=== PATIENT | female | born 1990 | race Caucasian/White ===

== ENCOUNTER 2021-02-26 12:24 | Outpatient (CLI) | payer OTHER, SELFPAY ==
--- NOTE | ~2021-02-26 | XR_ITS ---
XR knee RT 3V, XR knee LT 3V 02/26/2021 13:09 Indication: Osteoarthritis Procedure: 3 views of each knee Comparison: No prior studies for comparison. Findings: No fracture, subluxation or dislocation. No erosive changes. No significant joint space wendy rowing. No foreign bodies. No soft tissue abnormality. Impression: 1: No significant bone or joint abnormality. Reviewed, dictated and finalized at location B. Impression: 1: No significant bone or joint abnormality. Impression: 1: No significant bone or joint abnormality.
--- NOTE | ~2021-02-26 | XR_ITS ---
EXAMINATION: XR lumbar spine min 4V EXAM DATE: 02/26/2021 13:09 INDICATION: Osteoarthritis. Low back pain. TECHNIQUE: Lumber spine frontal, lateral, bilateral oblique projections. Coned down frontal and lat eral L5-S1 lumbar projections for interpretation. There is no prior study for comparison. FINDINGS: There is no spondylolysis. Evidence of mild lumbar facet arthropathy. Vertebral body and di sc heights are well-maintained. The vertebral bodies are aligned in the AP dimension. Sacrum, sacroil iac joints, sacral arcuate lines are intact. IMPRESSION: Mild lumbar facet arthropathy. Reviewed, dictated and finalized at location A.
--- NOTE | ~2021-02-26 | XR_ITS ---
EXAMINATION: HAND-OVIDIO ARTHRITIS 3+VIEWS DATE: 02/26/2021 13:09 INDICATION: Osteoarthritis TECHNIQUE: Posteroanterior, lateral, and oblique views of the left and of the right hands as well as a ballcatchers view of both hands were obtained. COMPARISON: None. FINDINGS: Normal alignment. No fracture. Joint spaces are normal with no osteophytosis or erosions. Soft tissue s are unremarkable. IMPRESSION: 1. Normal bilateral hand radiographs. Reviewed, dictated and finalized at location A.
--- NOTE | ~2021-02-26 | XR_ITS ---
XR foot RT standing 2V, XR foot LT standing 2V 02/26/2021 13:09 Indication: Osteoarthritis. Procedure: 2 views each foot Comparison: No prior studies for comparison. Findings: No fracture, subluxation or dislocation. No erosive changes. There is anatomic alignment. L isfranc joint intact. No erosive changes. Impression: 1: No significant bone or joint abnormality. Reviewed, dictated and finalized at location B. Impression: 1: No significant bone or joint abnormality. Impression: 1: No significant bone or joint abnormality.
--- NOTE | ~2021-02-26 | XR_ITS ---
XR hip BI 2V w AP pelvis 02/26/2021 13:09 Indication: Osteoarthritis Procedure: AP view of the pelvis and 2 views each hip Comparison: No prior studies for comparison. Findings: Pelvic rings are intact. Sacral foramen are symmetric. No fracture, subluxation or dislocat ion. No significant joint space narrowing. No erosive changes. Impression: 1: No significant bone or joint abnormality. Reviewed, dictated and finalized at location B. Impression: 1: No significant bone or joint abnormality.
[2021-02-26 13:49] LABS: Hemoglobin 14.1 g/dL (12.0-15.0); Mean Corpuscular HGB Conc 33.6 g/dl (32-36); Mean Corpuscular Hemoglobin 31.8 pg (26-34); Mean Corpuscular Volume 94.6 fl (80-100); Mean Platelet Volume 9.7 fl (7.4-10.4); Platelet Count Result 240 k/mm3 (150-375); Red Blood Count 4.44 M/mm3 (4.2-5.4); Red Cell Distribution Width 12.2 % (11.5-14.5); White Blood Count 7.6 K/mm3 (4.5-10.0)
[2021-02-26 13:51] LABS: Add Urine Microscopic? NO; Appearance Urine Clear (Clear); Bilirubin Urine Negative (Negative); Blood Urine Negative (Negative); Color Urine Yellow (Yellow); Glucose Urine UA Negative (Negative); Ketones Urine Negative (Negative); Leukocyte Esterase Ur Negative LEU/UL (Negative); Nitrate Urine Negative (Negative); Protein Urine Negative (Negative); Specific Grav Ur 1.018 (1.001-1.035); Urobilinogen Urine Negative mg/dL (<2.0)
[2021-02-26 14:04] LABS: Alanine Aminotransferase 12 U/L (4-35); Alkaline Phosphatase 47 U/L (38-126); Anion Gap 2 mmol/L (8-16); Aspartate Amino Transferase 18 U/L (14-36); Bilirubin,Total 0.3 mg/dL (0.2-1.3); Blood Urea Nitrogen 12 mg/dL (7-17); CRP < 0.5 mg/dL (<1.0); Calcium 8.8 mg/dL (8.4-10.2); Carbon Dioxide 28 mmol/L (22-30); Chloride 108 mmol/L (98-107); Estimated Glomerular Filt Rate > 60; Glucose 84 mg/dL (65-105); Potassium 4.4 mmol/L (3.4-5.0); Sodium 138 mmol/L (137-145); Uric Acid 4.3 mg/dL (2.5-7.5)
[2021-02-26 14:22] LABS: Erythrocyte Sedimentation Rate 12 mm/hr (0-20)
[2021-02-26 14:44] LABS: Vitamin D 25 Hydroxy 29.9 ng/mL
[2021-03-01 06:33] LABS: Thyroid Peroxidase Antibodies 79 IU/mL (<9)
[2021-03-04 10:25] LABS: Anti Cyclic Citrullinated Pept <16 Units (<20)
[2021-03-06 22:09] LABS: ANCA Screen Negative (Negative); Myeloperoxidase Ab <1.0 AI (<1.0); Proteinase-3 Ab <1.0 AI (<1.0); S cerevisiae Ab (IgA) 5.2 U (<=20.0); S cerevisiae Ab (IgG) 7.5 U (<=20.0)
== END 2021-02-26 12:25 | disposition home or self-care (01) ==
PROVIDERS: Visit Provider Internal Medicine
DX: M19.90 Unspecified osteoarthritis, unspecified site (principal)
CPT/HCPCS: 36415; 72110; 73130; 73521; 73562; 73620; 80053; 81003; 82306; 84550; 85027; 85652; 86021; 86140; 86200; 86376; 86671

== ENCOUNTER 2021-03-05 15:37 | Outpatient (CLI) | payer OTHER, SELFPAY ==
--- NOTE | ~2021-03-05 | XR_ITS ---
EXAMINATION:XR_CERV2-3V_CR DATE: 03/05/2021 15:58 INDICATION: Neck pain TECHNIQUE: AP, lateral, and odontoid views of the cervical spine are provided. COMPARISON: None FINDINGS: Alignment is normal. There is straightening of the cervical spine which can be positional o r due to muscular spasm. The odontoid is intact. No fracture is identified. There is mild loss of int ervertebral disc space height at C5-6. Vertebral body heights and disk spaces are otherwise normal. P revertebral soft tissues are normal. IMPRESSION: 1. Mild degenerative change at C5-6 without acute abnormality. Reviewed, dictated and finalized at location A.
== END 2021-03-05 15:38 | disposition home or self-care (01) ==
PROVIDERS: Visit Provider Internal Medicine
DX: M50.322 Other cervical disc degeneration at C5-C6 level (principal)
CPT/HCPCS: 72040

== ENCOUNTER 2021-05-01 16:54 | Outpatient (CLI) | payer OTHER, SELFPAY ==
--- NOTE | ~2021-05-01 | MR_ITS ---
EXAMINATION: MR lumbar spine wo con DATE: 05/01/2021 17:22 INDICATION: Lumbar spondylosis without myelopathy. Low back pain. TECHNIQUE: Magnetic resonance imaging (MRI) of the lumbar spine was performed without intravenous con trast. Sequences included sagittal T2-weighted FSE, sagittal T2-weighted FS FSE, sagittal T1-weighted FSE, and axial T2-weighted FSE. COMPARISON: None FINDINGS: Bone alignment is normal. Vertebral body heights and intervertebral disc heights are normal . The distal spinal cord signal intensity is normal. The conus medullaris is at L1-L2. The following disc levels are specifically discussed: L1-L2 through L3-L4: The disc does not extend beyond the endplate margin. There is no facet joint ost eoarthritis. There is no neural foraminal stenosis. There is no central canal stenosis. L4-L5: The disc is mildly bulging. There is moderate right and mild left facet joint osteoarthritis. There is mild bilateral neural foraminal stenosis. There is mild central canal stenosis. L5-S1: The disc does not extend beyond the endplate margin. There is no facet joint osteoarthritis. T here is no neural foraminal stenosis. There is no central canal stenosis. IMPRESSION: 1. Mild lumbar spondylosis. Reviewed, dictated and finalized at location A. IMPRESSION: 1. Mild lumbar spondylosis.
== END 2021-05-01 16:55 | disposition home or self-care (01) ==
PROVIDERS: Visit Provider Internal Medicine
DX: M47.816 Spondylosis without myelopathy or radiculopathy, lumbar region (principal); M48.061 Spinal stenosis, lumbar region without neurogenic claudication
CPT/HCPCS: 72148

== ENCOUNTER 2021-06-26 13:41 | Outpatient (CLI) | payer OTHER, SELFPAY ==
[2021-06-26 14:38] LABS: Total Triiodothyronine (T3) 1.25 NG/ML (0.97-1.69)
[2021-06-26 15:06] LABS: Free T4 Free Thyroxine 1.19 ng/mL (0.78-2.19)
== END 2021-06-26 13:42 | disposition home or self-care (01) ==
PROVIDERS: Visit Provider Internal Medicine
DX: E06.3 Autoimmune thyroiditis (principal)
CPT/HCPCS: 36415; 84439; 84443; 84480

== ENCOUNTER 2021-08-13 15:24 | Outpatient (CLI) | payer OTHER, SELFPAY ==
[2021-08-13 22:06] LABS: Hepatitis B Surface Antigen Negative (Negative)
[2021-08-13 22:17] LABS: HIV 1/2 Ab P24 Ag Result Negative (Negative)
[2021-08-13 22:24] LABS: Hepatitis C Virus Antibody Negative (Negative)
[2021-08-16 08:51] LABS: Rapid Plasma Reagin Non-Reactive (NonReactive)
[2021-08-17 17:25] LABS: HSV 1 IgM Screen Negative (Negative); HSV 2 IgM Screen Negative (Negative)
== END 2021-08-13 15:25 | disposition home or self-care (01) ==
LOC: ANHBWCLAB 15:32
PROVIDERS: Visit Provider Obstetrics & Gynecology
DX: Z11.3 Encounter for screening for infections with a predominantly sexual mode of transmission (principal); R93.89 Abnormal findings on diagnostic imaging of other specified body structures; N83.209 Unspecified ovarian cyst, unspecified side
CPT/HCPCS: 36415; 86592; 86695; 86696; 86703; 86803; 87340; G0432

== ENCOUNTER 2021-08-27 14:31 | Outpatient (CLI) | payer OTHER, SELFPAY ==
[2021-08-27 17:21] LABS: SPREG INTERNAL CONTROL Positive; Serum Qual hCG Negative
== END 2021-08-27 14:32 | disposition home or self-care (01) ==
PROVIDERS: Visit Provider Internal Medicine
DX: Z34.90 Encounter for supervision of normal pregnancy, unspecified, unspecified trimester (principal); Z3A.00 Weeks of gestation of pregnancy not specified
CPT/HCPCS: 36415; 84703

== ENCOUNTER 2022-01-22 12:49 | Emergency (ER) | payer OTHER, SELFPAY ==
--- NOTE | ~2022-01-22 | XR_ITS ---
EXAMINATION: XR foot LT min 3V, XR foot RT min 3V DATE: 01/22/2022 13:44 INDICATION: Bilateral foot pain and swelling TECHNIQUE: 1. Dorsoplantar, two oblique and lateral views of the left foot were obtained. 2. Dorsoplantar, two oblique and lateral views of the right foot were obtained. COMPARISON: Bilateral foot radiographs dated 02/26/2021 FINDINGS: Bone alignment is normal at the bilateral feet and ankles. Change of prior internal fixation at the l eft ankle with a couple residual lucent screw tracks extending transversely across the distal tibia a nd with minute flecks of metallic density in the soft tissues near the lateral malleolus with corresp onding fixation instrumentation seen on study dated 09/28/2006. The fractures of healed in essentiall y anatomic alignment. No acute fractures in either foot. Mild osteoarthritis at the bilateral first t arsal metatarsal joints. Remaining joint spaces at both feet are relatively preserved. No erosions. B one island in the left first metatarsal diaphysis. No ankle joint effusions. Soft tissues are unremar kable. IMPRESSION: 1. Mild osteoarthritis at the bilateral first metatarsophalangeal joints. No acute osseous abnormalit y at either foot. Reviewed, dictated and finalized at location A. 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 Mild osteoarthritis at the bilateral first metatarsophalangeal joints. No ac washoe osseous abnormality at either foot.
--- NOTE | ~2022-01-22 | US_ITS ---
EXAMINATION:US venous doppler LE BI INDICATION:Bilateral leg pain. 20 weeks . TECHNIQUE: Multiple grayscale, color flow and Doppler images of the right and left lower extremity de ep venous systems were obtained and reviewed. COMPARISON:No prior studies for comparison. FINDINGS: The common femoral, superficial femoral and popliteal veins demonstrate normal respiratory variation, augmentation and compressibility. Color flow is also seen within the posterior tibial, pe roneal, greater saphenous and profunda veins. IMPRESSION: 1: No lower extremity deep venous thrombosis. Reviewed, dictated and finalized at location B. Y SPREADER
[2022-01-22 12:52] VITALS: BP 138/77; PULSE 91; RESP 14; TEMP 35.8; O2SAT 100
--- NOTE | 2022-01-22 13:15 | ED.EXTPRO ---
HPI - Extremity Problem General Chief complaint: Extremity Problem,Nontraumatic Stated complaint: Leg pain Time Seen by Provider: 01/22/22 12:58 History of Present Illness HPI Narrative: 32-year-old female presents to the emergency room from her medicine physician for further evaluation of bilateral heel swelling. Patient states that she is gradually experienced heel pain in both feet over the last 3 to 4 weeks. States has a new job where she is on her feet for 10 to 12 hours daily. Denies injury denies trauma. Patient states that she has a high risk due to elevated blood pressures. Related Data Home Medications Medication Instructions Recorded Confirmed gabapentin 300 mg capsule 900 mg PO TID cap 07/30/21 09/11/21 acetaminophen 500 mg tablet 3,000 mg PO DAILY PRN tablet 08/13/21 09/11/21 duloxetine 30 mg capsule,delayed 30 mg PO BID 08/27/21 09/11/21 release cholecalciferol (vitamin D3) 125 125 mcg PO DAILY 09/11/21 09/11/21 mcg (5,000 unit) capsule Allergies Allergy/AdvReac Type Severity Reaction Status Date / Time No Known Allergies Allergy Verified 01/22/22 12:57 Review of Systems Review of Systems: CONSTITUTIONAL: Denies fever, chills, or sweats. EYES: Denies visual changes, redness, or discharge. ENT: Denies rhinorrhea, congestion, sore throat, or otalgia. CARDIOVASCULAR: Denies chest pain, palpitations, or edema. RESPIRATORY: Denies cough or dyspnea. GASTROINTESTINAL: Denies abdominal pain, nausea, vomiting, or diarrhea. GENITOURINARY: Denies dysuria or hematuria. SKIN: Denies rash or itching. MUSCULOSKELETAL: Reports bilateral medial heel pain. NEUROLOGIC: Denies headache, numbness, dizziness, or weakness. PSYCHIATRIC: Denies anxiety or depression. 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 HTN (hypertension) Inflammatory arthritis Migraine Recent surgical procedure on lower extremity 2020, right thigh Thyroid disorder Surgical History Surgical History H/O wrist surgery 2019, left History of ankle surgery 2006, left Family History Family History Mother Hypertension Grandparent Heart disease Carcinoma of colon Diabetes mellitus Breast cancer Cerebrovascular accident Heart problem Sibling Alcoholism Social History Social History Smoking packs per day: 1 Smoking cigarettes per day: 20.0 Smoking status: Current every day smoker Tobacco type: cigarettes Additional smoking assessment comments: 1 or more pack daily Alcohol intake: current Alcohol use details: 1 drink per 1-3 months Substance use: never Gender identity (if verbalized by the patient): Female Sexual Orientation (if Verbalized by the Patient): Lesbian, Nieves, or Homosexual Exam Narrative: GENERAL: Well-appearing, well-nourished, and in no acute distress. HEAD: Normocephalic, atraumatic. EYES: PERRLA and EOMI. ENT: Nares clear, no rhinorrhea or epistaxis. Mucous membranes moist. Oropharynx without tonsillar hypertrophy exudate or other lesions. Bilateral TMs pearly villavicencio nonbulging NECK: Supple. No adenopathy or masses. No carotid bruits or JVD CHEST: Clear to auscultation. No respiratory distress. No wheezes rales or rhonchi HEART: Regular rate and rhythm. No murmur heard. Normal peripheral pulses. ABDOMEN: Soft, nontender, nondistended, normal active bowel sounds. EXTREMITIES: Normal range of motion. No edema. Negative Homans' sign bilaterally. Positive tenderness and swelling posterior to the medial malleolus bilaterally. No obvious bony abnormality. No ecchymosis. Pain is reproducible with active dorsiflexion. SKIN: Warm, dry, no rash. NEURO: No f
[2022-01-22 13:59] LABS: Basophils Absolute Auto 0.1 K/mm3 (0.0-0.1); Basophils Percent Auto 0.5 % (0.2-1.2); Eosinophils Absolute Auto 0.2 K/mm3 (0-0.3); Eosinophils Percent Auto 1.4 % (0-4.4); Hematocrit 36.7 % (37.0-47.0); Hemoglobin 12.6 g/dL (12.0-15.0); Immature Granulocyte Absolute 0.19 K/mm3 (0.00-0.031); Immature Granulocyte Percent A 1.1 % (0-0.5); Lymphocytes Absolute Auto 2.76 K/mm3 (0.9-3.2); Lymphocytes Percent Auto 15.6 % (18.3-44.2); Mean Corpuscular HGB Conc 34.3 g/dl (32-36); Mean Corpuscular Volume 96.1 fl (80-100); Mean Platelet Volume 9.8 fl (7.4-10.4); Monocytes Absolute Auto 1.1 K/mm3 (0.1-0.6); Neutrophils Absolute Auto 13.4 K/mm3 (1.3-6.7); Neutrophils Percent Auto 75.4 % (45.5-73.1); Platelet Count Result 259 k/mm3 (150-375); Red Blood Count 3.82 M/mm3 (4.2-5.4); Red Cell Distribution Width 12.6 % (11.5-14.5); White Blood Count 17.7 K/mm3 (4.5-10.0)
[2022-01-22 14:02] LABS: Add Urine Microscopic? NO; Appearance Urine Clear (Clear); Bilirubin Urine Negative (Negative); Blood Urine Negative (Negative); Color Urine Yellow (Yellow); Glucose Urine UA Negative (Negative); Ketones Urine Negative (Negative); Leukocyte Esterase Ur Negative LEU/UL (Negative); Nitrate Urine Negative (Negative); Protein Urine Negative (Negative); Specific Grav Ur 1.023 (1.001-1.035); Urobilinogen Urine Negative mg/dL (<2.0)
[2022-01-22 14:10] LABS: Alanine Aminotransferase 39 U/L (4-35); Albumin Level 3.8 g/dL (3.5-5.1); Alkaline Phosphatase 66 U/L (38-126); Anion Gap 5 mmol/L (8-16); Aspartate Amino Transferase 32 U/L (14-36); Bilirubin,Total 0.3 mg/dL (0.2-1.3); Blood Urea Nitrogen 10 mg/dL (7-17); Carbon Dioxide 24 mmol/L (22-30); Chloride 106 mmol/L (98-107); D Dimer 0.61 ug/mL (<0.48); Estimated CRCL calculation 142 ml/min; Estimated Glomerular Filt Rate > 60; Glucose 100 mg/dL (65-110); Potassium 3.7 mmol/L (3.4-5.0); Sodium 135 mmol/L (137-145)
[2022-01-22 14:19] LABS: NT Pro B Type Natriuretic Pept 123 pg/mL (5-100)
== END 2022-01-22 14:49 | disposition home or self-care (01) ==
PROVIDERS: Emergency Provider Nurse Practitioner Family
DX: M76.822 Posterior tibial tendinitis, left leg (principal); M76.821 Posterior tibial tendinitis, right leg; E06.3 Autoimmune thyroiditis; I10 Essential (primary) hypertension; M47.816 Spondylosis without myelopathy or radiculopathy, lumbar region; E07.9 Disorder of thyroid, unspecified; F17.210 Nicotine dependence, cigarettes, uncomplicated
CPT/HCPCS: 36415; 73630; 80053; 81003; 83880; 85025; 85380; 93970; 99284

== ENCOUNTER 2022-03-12 10:41 | Outpatient (RCR) | payer OTHER, SELFPAY ==
[2022-03-12 12:12] LABS: Hematocrit 35.5 % (37.0-47.0); Hemoglobin 11.9 g/dL (12.0-15.0)
[2022-03-12 12:22] LABS: Glucose 1 Hour PP 50gm Dose 111 mg/dL
[2022-03-12 13:02] LABS: HIV 1/2 Ab P24 Ag Result Negative (Negative)
[2022-03-13] MEDS: RHO(D) IMMUNE GLOBULIN 300 MCG/2 ML SYRINGE IM (16:28)
[2022-03-14 07:11] LABS: Lead, Blood <1.0 mcg/dL (<3.5)
[2022-03-14 14:16] LABS: Collection Sample Venous
== END 2022-06-10 23:59 | disposition home or self-care (01) ==
LOC: ANHLAB 10:41
PROVIDERS: Visit Provider Obstetrics & Gynecology
DX: Z11.4 Encounter for screening for human immunodeficiency virus [HIV] (principal); Z29.13 Encounter for prophylactic Rho(D) immune globulin; O36.0130 Maternal care for anti-D [Rh] antibodies, third trimester, not applicable or unspecified; Z3A.00 Weeks of gestation of pregnancy not specified
CPT/HCPCS: 36415; 82947; 83655; 84443; 85014; 85018; 85461; 86703; 90384; 96372; G0432; J2790

== ENCOUNTER 2022-05-01 16:10 | Outpatient (CLI) | payer OTHER, SELFPAY ==
--- NOTE | ~2022-05-01 | US_ITS ---
EXAMINATION: US OB BPP wo non-stress DATE: 05/01/2022 17:56 INDICATION: Hypertension, third trimester TECHNIQUE: Real-time pelvic ultrasound was performed. The interpreting radiologist was not present fo r the study. COMPARISON: None. FINDINGS: There is a single living fetus in vertex presentation. The placenta is posterior. heart rate is 136 beats per minute (bpm). The amniotic fluid index is 9.4 cm which is normal Biophysical profile performed by the technologist: breathing (30 sec sustained breathing in 30 minutes): 2 out of 2 movement (3 gross body movements in 30 minutes): 2 out of 2 tone (one episode of [id number]-[id number]-[id number] limb movement): 2 out of 2 Amniotic fluid pocket (2 cm): 2 out of 2 Total score: 8 out of 8 IMPRESSION: 1. Single living fetus in vertex presentation. 2. Biophysical profile 8 out of 8. 3. Normal amniotic fluid index. Reviewed, dictated and finalized at location F.
[2022-05-01 16:32] VITALS: BP 122/73; PULSE 86
[2022-05-01 16:45] VITALS: BP 121/73; PULSE 90
[2022-05-01 16:55] VITALS: TEMP 36.5
[2022-05-01 17:14] LABS: Basophils Absolute Auto 0.1 K/mm3 (0.0-0.1); Basophils Percent Auto 0.7 % (0.2-1.2); Eosinophils Absolute Auto 0.3 K/mm3 (0-0.3); Eosinophils Percent Auto 1.2 % (0-4.4); Hematocrit 35.6 % (37.0-47.0); Hemoglobin 12.2 g/dL (12.0-15.0); Immature Granulocyte Absolute 0.62 K/mm3 (0.00-0.031); Lymphocytes Absolute Auto 3.28 K/mm3 (0.9-3.2); Lymphocytes Percent Auto 15.8 % (18.3-44.2); Mean Corpuscular HGB Conc 34.3 g/dl (32-36); Mean Corpuscular Hemoglobin 32.9 pg (26-34); Mean Platelet Volume 9.7 fl (7.4-10.4); Monocytes Absolute Auto 1.6 K/mm3 (0.1-0.6); Monocytes Percent Auto 7.8 % (2.6-8.5); Neutrophils Absolute Auto 14.8 K/mm3 (1.3-6.7); Neutrophils Percent Auto 71.5 % (45.5-73.1); Platelet Count Result 292 k/mm3 (150-375); Red Blood Count 3.71 M/mm3 (4.2-5.4); Red Cell Distribution Width 12.9 % (11.5-14.5); White Blood Count 20.7 K/mm3 (4.5-10.0)
[2022-05-01 17:15] LABS: Appearance Urine Clear (Clear); Bilirubin Urine Negative (Negative); Blood Urine Negative (Negative); Color Urine Yellow (Yellow); Glucose Urine UA Negative (Negative); Ketones Urine Trace mg/dL (Negative); Leukocyte Esterase Ur Negative LEU/UL (Negative); Nitrate Urine Negative (Negative); Protein Urine Negative (Negative); Urobilinogen Urine 0.2 mg/dL (<2.0); pH Urine 6.5 (5.0-9.0)
[2022-05-01 17:19] LABS: Mucus Urine Rare /lpf; RBC Urine 0-2 /hpf (0-2); Squamous Epithelial Cell Urine Occasional /hpf (Few); WBC Urine 0-3 /hpf
[2022-05-01 17:20] LABS: Add Urine Microscopic? YES
[2022-05-01 17:23] LABS: Alanine Aminotransferase 20 U/L (6-35); Albumin Level 3.7 g/dL (3.5-5.1); Alkaline Phosphatase 102 U/L (38-126); Anion Gap 6 mmol/L (8-16); Aspartate Amino Transferase 23 U/L (14-36); Bilirubin,Total 0.2 mg/dL (0.2-1.3); Blood Urea Nitrogen 8 mg/dL (7-17); Carbon Dioxide 22 mmol/L (22-30); Chloride 106 mmol/L (98-107); Estimated Glomerular Filt Rate > 60; Glucose 78 mg/dL (65-110); Potassium 3.7 mmol/L (3.4-5.0); Sodium 134 mmol/L (137-145); Uric Acid 4.6 mg/dL (2.5-7.5)
[2022-05-01 19:15] LABS: Creatinine Urine 74.2 mg/dL; Total Protein Urine Random 6 mg/dL; Ur Ttl Prot Creatinine Ratio 0.08 mg/mg (0-0.20)
== END 2022-05-01 18:00 | disposition home or self-care (01) ==
LOC: ANHOBOP 16:18 → ANHOBPP 16:25
PROVIDERS: Visit Provider Advanced Practice Midwife
DX: O13.3 Gestational [pregnancy-induced] hypertension without significant proteinuria, third trimester (principal); Z3A.34 34 weeks gestation of pregnancy
CPT/HCPCS: 36415; 59025; 76819; 80053; 81001; 82570; 84156; 84550; 85025; 99199

== ENCOUNTER 2022-05-24 12:31 | Outpatient (CLI) | payer OTHER, SELFPAY ==
[2022-05-24 13:14] LABS: Hematocrit 37.6 % (37.0-47.0); Hemoglobin 12.6 g/dL (12.0-15.0); Mean Corpuscular HGB Conc 33.5 g/dl (32-36); Mean Corpuscular Hemoglobin 32.8 pg (26-34); Mean Corpuscular Volume 97.9 fl (80-100); Platelet Count Result 303 k/mm3 (150-375); Red Blood Count 3.84 M/mm3 (4.2-5.4); Red Cell Distribution Width 13.2 % (11.5-14.5); White Blood Count 22.4 K/mm3 (4.5-10.0)
[2022-05-26 16:29] LABS: Rapid Plasma Reagin Non-Reactive (NonReactive)
== END 2022-05-24 12:32 | disposition home or self-care (01) ==
LOC: ANHLAB 12:34
PROVIDERS: Visit Provider Obstetrics & Gynecology
DX: Z34.93 Encounter for supervision of normal pregnancy, unspecified, third trimester (principal); Z3A.00 Weeks of gestation of pregnancy not specified
CPT/HCPCS: 36415; 85027; 86592; 86850; 86900; 86901

== ENCOUNTER 2022-05-26 10:01 | Inpatient (IN) | payer OTHER, SELFPAY ==
[2022-05-26] VITALS (40 sets, daily range): BP systolic 82–113; BP diastolic 38–69; PULSE 25–131; RESP 11–20; TEMP 36.2–36.7; O2SAT 83–100; BMI 39.2
--- NOTE | 2022-05-26 10:25 | WPDANESEPP ---
Anes - Eval Pre Procedure Procedure: Primary Section, Bilateral Tubal Ligation Date/Time: 05/26/22 10:25 Surgeon: Bimal Preop Diagnosis: Pregnany, unwanted fertility, IUGR Pre Op Diagnosis: C/S Patient Data Age: 32 Gender: F Height: 5'7 Weight: 250lbs Allergies Allergy/AdvReac Type Severity Reaction Status Date / Time No Known Allergies Allergy Verified 01/27/22 13:47 Home Medications Medication Instructions Recorded Confirmed Type gabapentin 300 mg capsule 900 mg PO TID 07/30/21 05/01/22 History acetaminophen 500 mg tablet 3,000 mg PO DAILY PRN Headache 08/13/21 05/01/22 History (Tylenol Extra Strength) cholecalciferol (vitamin D3) 125 125 mcg PO DAILY 09/11/21 05/01/22 History mcg (5,000 unit) capsule folic acid 1 mg tablet tablet 05/01/22 History aspirin 81 mg tablet 81 mg PO BID 05/23/22 05/23/22 History nicotine 21 mg/24 hr daily 1 patch transdermal DAILY 05/23/22 05/23/22 History transdermal patch Patient hx anesthesia problems: none Family hx anesthesia problems: none Results Review: All pre-operative results and documents have been reviewed as part of the pre-operative evaluation. [facility] Past Medical History Medical History (Updated 05/26/22 @ 10:29 by Kia Reyes CRNA) Anxiety Arthritis Degenerative joint disease (DJD) of lumbar spine Depression Delmy's disease HTN (hypertension) Inflammatory arthritis Migraine Recent surgical procedure on lower extremity 2020, right thigh Thyroid disorder Surgical History Surgical History H/O wrist surgery 2018, left History of ankle surgery 2006, left Family History Family History Mother Hypertension Grandparent Diabetes mellitus Heart disease Heart problem Breast cancer Carcinoma of colon Cerebrovascular accident Lung cancer Sibling Alcoholism Other Family history of alcoholism Family history of arthritis Family history of hearing loss Social History Social History Smoking packs per day: 1 Smoking cigarettes per day: 20.0 Smoking status: Current every day smoker Tobacco type: cigarettes Additional smoking assessment comments: 1 or more pack daily Alcohol intake: current Alcohol use details: 1 drink per 1-3 months Substance use: never Gender identity (if verbalized by the patient): Female Sexual Orientation (if Verbalized by the Patient): Lesbian, Nieves, or Homosexual Spiritual care concerns: No Exam Day of Procedure 05/26/22 10:25 Patient weight: obese
--- NOTE | 2022-05-26 10:33 | LDADM ---
This patient, Gurjit Charles, was admitted to Labor/Delivery/Recovery 119 on 05/26/22 at 10:01. Plans for labor, pain management and were discussed with patient. Patient/family oriented to hospital policies and general routines including ID bracelet, bed and alarms, visiting hours, pain management, procedures, bathroom and other care routines, personal items, smoking policy, room service/diet and guest tray routines, security routines, and visiting hours. Patient/Family are encouraged to report perceived risks to care and to ask questions if they do not understand what they are told or what they should do. See [facility] for further documentation.
--- NOTE | 2022-05-26 10:37 | WPDANESEPPF ---
Anes - Initial Pre Proc Eval Date/Time: 05/26/22 10:37 Surgeon: James Wallis MD Pre Op Diagnosis: C/S Patient Data Age: 32 Gender: F Height: Weight: Allergies Allergy/AdvReac Type Severity Reaction Status Date / Time No Known Allergies Allergy Verified 01/27/22 13:47 Home Medications Medication Instructions Recorded Confirmed Type gabapentin 300 mg capsule 900 mg PO TID 07/30/21 05/01/22 History acetaminophen 500 mg tablet 3,000 mg PO DAILY PRN Headache 08/13/21 05/01/22 History (Tylenol Extra Strength) cholecalciferol (vitamin D3) 125 125 mcg PO DAILY 09/11/21 05/01/22 History mcg (5,000 unit) capsule folic acid 1 mg tablet tablet 05/01/22 History aspirin 81 mg tablet 81 mg PO BID 05/23/22 05/23/22 History nicotine 21 mg/24 hr daily 1 patch transdermal DAILY 05/23/22 05/23/22 History transdermal patch Patient hx anesthesia problems: none Family hx anesthesia problems: none Results Review: All pre-operative results and documents have been reviewed as part of the pre-operative evaluation. [facility] Past Medical History Medical History (Updated 05/26/22 @ 10:29 by Kia Reyes CRNA) Anxiety Arthritis Degenerative joint disease (DJD) of lumbar spine Depression Delmy's disease HTN (hypertension) Inflammatory arthritis Migraine Recent surgical procedure on lower extremity 2020, right thigh Thyroid disorder Surgical History Surgical History H/O wrist surgery 2018, left History of ankle surgery 2006, left Family History Family History Mother Hypertension Grandparent Diabetes mellitus Heart disease Heart problem Breast cancer Carcinoma of colon Cerebrovascular accident Lung cancer Sibling Alcoholism Other Family history of alcoholism Family history of arthritis Family history of hearing loss Social History Social History Smoking packs per day: 1 Smoking cigarettes per day: 20.0 Smoking status: Current every day smoker Tobacco type: cigarettes Additional smoking assessment comments: 1 or more pack daily Alcohol intake: current Alcohol use details: 1 drink per 1-3 months Substance use: never Gender identity (if verbalized by the patient): Female Sexual Orientation (if Verbalized by the Patient): Lesbian, Nieves, or Homosexual Spiritual care concerns: No Anes - Eval Final PreProcedure Day of Procedure 05/26/22 10:37 Patient weight: obese Heart: regular rate and rhythm Lungs: decreased breath sounds Airway: Mallampati scale class II Neurological: alert and oriented Last oral intake: >/= 8 hours ASA classification: III Emergent: no Anesthetic plan: proceed Anesthesia type and monitoring: regional spinal and standard monitoring Results Review: All pre-operative results and documents have been reviewed as part of the pre-operative evaluation. Informed Consent: The patient's anesthetic plan and its attendant risks and benefits were discussed with the patient/family/POA. Questions were solicited and answers provided to the satisfaction of the patient/family/POA.
[2022-05-26] MEDS: LACTATED RINGERS 1,000 ML 999 ML IV CONT (10:48)
--- NOTE | 2022-05-26 11:49 | WPDHPUPDATE1 ---
History and Physical Update Update Date/Time: 05/26/22 11:49 History and Physical has been reviewed, including an updated exam of the patient. There are NO changes in the patient's condition. Risks, benefits, and alternatives have been discussed and questions answered. Patient agrees to proceed with procedure.
--- NOTE | 2022-05-26 11:49 | PM.IMHP ---
H&P: HPI History of Present Illness Date/Time: 05/26/22 11:49 Chief Complaint: Term Narrative: This patient is a 32-year-old primiparous female with term gestation. She desires elective . Agreed to perform elective . She desires tubal ligation. We have agreed to perform bilateral salpingectomy. The patient understands the risks. She understands that injuries may occur that result in hospitalization, more surgery, and severe illness. She understands there is risk of infection and hemorrhage. She denies any nausea, vomiting, fever, chills. She denies any chest pain shortness of breath. She denies any contractions or vaginal bleeding. She denies any loss of fluid. Review of Systems Review of Systems: All systems reviewed & are unremarkable except as noted in HPI and below Constitutional: Constitutional: Denies chills, Denies fatigue, Denies fever(s) and Denies weakness Eyes: Eyes: Denies blurry vision, Denies change in vision, Denies loss of peripheral vision, Denies loss of vision, Denies other visual disturbances and Denies eye pain ENT: Denies vertigo, Denies dizziness, Denies hearing loss, Denies mouth pain, Denies nasal obstruction, Denies neck mass and Denies neck pain Cardiovascular: Cardiovascular: Denies chest pain, Denies diaphoresis, Denies syncope, Denies leg edema and Denies dyspnea Respiratory: Respiratory: Denies chest congestion, Denies cough, Denies hemoptysis, Denies dyspnea and Denies wheezing Gastrointestinal: Gastrointestinal: Denies abdominal pain, Denies constipation, Denies diarrhea, Denies nausea and Denies vomiting Genitourinary: Genitourinary: Denies hematuria, Denies change in libido, Denies nocturia, Denies genital lesions, Denies flank pain and Denies urinary urgency Musculoskeletal: Musculoskeletal: Denies abnormal gait, Denies back pain, Denies myalgias, Denies arthralgias, Denies joint swelling, Denies muscle weakness and Denies neck pain Integumentary/Breasts: Skin/Breast: Denies swelling, Denies breast pain, Denies breast mass, Denies dry skin, Denies nipple discharge, Denies unusual bruising and Denies jaundice Neurologic: Denies Neuro-related abnormal movements, Denies Abnormal speech present, Denies abnormal gait, Denies behavioral changes, Denies confusion, Denies vertigo, Denies dizziness, Denies syncope, Denies loss of vision, Denies memory loss, Denies convulsions and Denies weakness Psychiatric: Psychiatric: Denies abnormal sleep pattern, Denies behavioral changes, Denies change in libido, Denies confusion, Denies depression, Denies anhedonia and Denies memory loss Endocrine: Endocrine: Reports no additional endocrine complaints, Denies change in libido and Denies fatigue Hematologic/Lymphatic: Hematologic/Lymphatic: Reports no additional hematologic/lymphatic complaints Allergic/Immunologic: Allergic/Immunologic: Reports no additional allergic/immunologic complaints and Denies wheezing PMFSH Past Medical History Medical History (Updated 05/26/22 @ 12:01 by James Wallis MD) Anxiety Arthritis Degenerative joint disease (DJD) of lumbar spine Depression Delmy's disease HTN (hypertension) Inflammatory arthritis Migraine Recent surgical procedure on lower extremity 2020, right thigh Thyroid disorder Surgical History Surgical History H/O wrist surgery 2019, left History of ankle surgery 2006, left Family History Family History Mother Hypertension Grandparent Diabetes mellitus Heart disease Heart problem Breast cancer Carcinoma of colon Cerebrovascular accident Lung cancer Sibling Alcoholism Other Family history of alcoholism Family history of arthritis Family history of hearing loss Social History Social History Smoking packs per day:
[2022-05-26] MEDS: LACTATED RINGERS 1,000 ML 125 ML IV CONT (11:52)
--- NOTE | 2022-05-26 12:57 | W.PM.PROC2 ---
Procedure Note - Detailed Date of Procedure 05/26/22 Pre-op Diagnosis Elective C/S, female sterilization Post-op Diagnosis Same Procedure Performed Low-transverse section, Bilateral Salpingectomy Surgeon James Wallis MD Anesthesia Spinal Findings Normal gestational maternal anatomy, average size infant, normal Apgars. Description of Procedure The patient was taken the operating room. She was prepped and draped in dorsal supine position with a leftward tilt. This was done after spinal anesthetic was applied. A low-transverse skin incision was made and carried down till of the fascia with the knife. The fascial incision was made with the knife. The fascial incision was extended laterally with Andrade scissors. The fascia was tented upward superiorly and inferiorly the rectus muscles were dissected off bluntly. The rectus muscles were the midline. The preperitoneal fat and peritoneum were dissected open bluntly at the superior aspect of the rectus muscles. The peritoneal incision was extended superior and inferior with good position of bladder. The uterine incision was made with a scalpel down to the level of the amniotic cavity. The amniotic cavity was entered bluntly. The infant was delivered. The cord was clamped and cut and the was handed off to waiting pediatric staff. Cord bloods were obtained. The placenta was removed manually. The uterus was exteriorized. The uterus was cleared of all clots, debris and membranes. The uterus was closed in 0 Vicryl running lock fashion. An imbricating over a was placed along the incision line as well. Each fallopian tube was grasped and raised with a [place]. With from the underlying venous structures. The mesosalpinx between the tube and the rest the adnexa was cauterized and transected with LigaSure cautery. It was performed from the distal tube near the ovary in a stepwise fashion towards the cornua. The tube at the cornua was cauterized transected with LigaSure cautery. This was performed in a bilateral fashion. The uterus was returned to the abdomen. The gutters were cleared of all clots and debris. The fascia was closed with 0 Vicryl running fashion. The subcutaneous tissue was irrigated pinpoint bleeders were cauterized. The skin was closed with subcuticular absorbable lizeth. The skin incision line was covered with glue. The patient tolerated the procedure well. She has taken recovery room in stable condition. Sponge lap and needle counts were correct x2. Complications No immediate complications Condition Stable Disposition PACU
[2022-05-26] MEDS: OXYTOCIN 30 UNITS/NS 500 ML 30 UNITS/500 ML BAG 125 UNITS IV CONT (14:03)
[2022-05-26] MEDS: LORATADINE 10 MG TABLET PO (14:03)
[2022-05-26] MEDS: MORPHINE SULFATE INJ (*CRX) 10 MG/ML AMP 3 MG IV PUSH ×2 (14:04→14:21)
[2022-05-26] MEDS: KETOROLAC 30 MG/ML VIAL (*BKC) IV PUSH (15:42)
--- NOTE | 2022-05-26 17:43 | OBPPTRN ---
1548 Patient transferred to post room #284 via stretcher. 2 Support persons present. Oriented to unit, room, information board, rooming in, admission packet and security measures. Patient verbalizes understanding.
[2022-05-26] MEDS: HYDROcodone/acetaminophen (*CRX) 10-325 MG TABLET 1 TAB PO (18:38)
[2022-05-26] MEDS: GABAPENTIN 300 MG CAPSULE PO (18:43)
[2022-05-26] MEDS: NICOTINE (*PBKC) 21 MG PATCH 1 PATCH TRANSDERM (18:44)
[2022-05-26] MEDS: DEXTROSE 5%/0.45% SOD CHL 1,000 ML 125 ML IV CONT (18:49)
[2022-05-26] MEDS: IBUPROFEN 600 MG TABLET PO (23:48)
[2022-05-26] MEDS: DOCUSATE SODIUM 100 MG CAPSULE PO (23:48)
[2022-05-27 04:21] VITALS: BP 116/62; PULSE 77; RESP 16; TEMP 36.7; O2SAT 100
[2022-05-27 04:22] VITALS: PULSE 77; RESP 16; O2SAT 100
[2022-05-27 04:35] LABS: Basophils Absolute Auto 0.1 K/mm3 (0.0-0.1); Basophils Percent Auto 0.4 % (0.2-1.2); Eosinophils Absolute Auto 0.2 K/mm3 (0-0.3); Eosinophils Percent Auto 0.8 % (0-4.4); Hematocrit 34.4 % (37.0-47.0); Hemoglobin 11.7 g/dL (12.0-15.0); Immature Granulocyte Absolute 0.41 K/mm3 (0.00-0.031); Immature Granulocyte Percent A 1.7 % (0-0.5); Lymphocytes Absolute Auto 2.46 K/mm3 (0.9-3.2); Lymphocytes Percent Auto 9.9 % (18.3-44.2); Mean Corpuscular Hemoglobin 33.2 pg (26-34); Mean Corpuscular Volume 97.7 fl (80-100); Mean Platelet Volume 10.3 fl (7.4-10.4); Monocytes Absolute Auto 1.7 K/mm3 (0.1-0.6); Monocytes Percent Auto 6.9 % (2.6-8.5); Neutrophils Absolute Auto 19.9 K/mm3 (1.3-6.7); Neutrophils Percent Auto 80.3 % (45.5-73.1); Platelet Count Result 293 k/mm3 (150-375); Red Blood Count 3.52 M/mm3 (4.2-5.4); Red Cell Distribution Width 13.1 % (11.5-14.5); White Blood Count 24.8 K/mm3 (4.5-10.0)
[2022-05-27] MEDS: IBUPROFEN 600 MG TABLET PO ×3 (06:00→19:41)
[2022-05-27 07:35] VITALS: BP 101/60; PULSE 77; RESP 16; TEMP 36.9; O2SAT 98
[2022-05-27] MEDS: GABAPENTIN 300 MG CAPSULE PO ×3 (08:38→16:11)
[2022-05-27] MEDS: MULTIVIT/MIN/PREN/FOL AC/IRON TABLET 1 TAB PO (08:38)
[2022-05-27] MEDS: DOCUSATE SODIUM 100 MG CAPSULE PO ×2 (08:38→16:10)
[2022-05-27] MEDS: SIMETHICONE 80 MG TAB.CHEW PO (08:38)
--- NOTE | 2022-05-27 09:17 | PM.OBPNVD ---
OB - PN: Subj Subjective Date/time seen: 05/27/22 09:17 Patient comments: no complaints, pain well controlled, tolerating diet and flatus present OB - PN: Obj Data Labs CBC & Chem 7: 05/27/22 03:21 Labs: Laboratory Results - last 24 hr 05/27/22 03:21 WBC 24.8 H RBC 3.52 L Hgb 11.7 L Hct 34.4 L MCV 97.7 MCH 33.2 MCHC 34.0 RDW 13.1 Plt Count 293 MPV 10.3 Immature Gran % (Auto) 1.7 H Neut % (Auto) 80.3 H Lymph % (Auto) 9.9 L [place] % (Auto) 6.9 Eos % (Auto) 0.8 Baso % (Auto) 0.4 Lymph # (Auto) 2.46 [place] # (Auto) 1.7 H Eos # (Auto) 0.2 Baso # (Auto) 0.1 Abs Immat Gran (auto) 0.41 H Absolute Neuts (auto) 19.9 H Absolute Nucleated RBC 0.0 Nucleated RBC % 0.0 OB - PN A/P Plan day: 1 Comments: Post Op LTCS - no problems, routine recovery Time Spent With Patient Time: Total time spent is greater than 50% in coordination of care (as documented) at patient's floor/unit and/or counseling patient: Exam Const: General: cooperative, healthy appearing, comfortable and no acute distress Resp: Auscultation: no crackles, no rales, no rhonchi and no wheezes Cardio: Rhythm: regular rhythm Heart sounds: no click and no murmurs GI: Inspection: non-distended Auscultation: normal bowel sounds Extrem: General: normal to inspection, no pedal edema and no calf tenderness
--- NOTE | 2022-05-27 11:27 | PC.NURSE ---
1051 - Introductions made. Mother is trying to resting and prefers RN to come back later. RN reported infants blood sugar was checked (55 mg/dl) and mother was going to feed at 0930. Mother's plan is .
--- NOTE | 2022-05-27 11:43 | WPDANLDPN2 ---
Anes-Prog Note L&D Date/Time: 05/27/22 11:43 Comfortable throughout: section Neuraxial method: spinal Epidural/Spinal procedure site: clean & non-tender Neuro status: Neuro function grossly intact. Cardiovascular status: normal Respiratory status: normal Airway patency: baseline Mental status: baseline Post-Op hydration status: normal Vital Signs: Last Vital Signs Temp 36.9 C 05/27/22 07:35 Pulse 77 05/27/22 07:35 Resp 16 05/27/22 07:35 BP 101/60 05/27/22 07:35 Pulse Ox 98 05/27/22 07:35 O2 Del Method Room Air 05/27/22 08:38 Pain score (VAS): 12/09 I/O: Intake & Output 05/26/22 05/27/22 05/27/22 23:59 07:59 15:59 Intake Total 800 900 Output Total 375 2250 Balance 425 -1350 Patient feedback: Patient satisfied with anesthetic care.
--- NOTE | 2022-05-27 11:44 | WPDANESPN ---
Anes - Prog Note Post-Op Date/Time: 05/27/22 11:44 Cardiovascular status: normal Respiratory status: normal Airway patency: baseline Mental status: baseline Post-Op hydration status: normal Vital Signs: Last Vital Signs Temp 36.9 C 05/27/22 07:35 Pulse 77 05/27/22 07:35 Resp 16 05/27/22 07:35 BP 101/60 05/27/22 07:35 Pulse Ox 98 05/27/22 07:35 O2 Del Method Room Air 05/27/22 08:38 Pain Score (VAS): 12/09 I/O: Intake & Output 05/26/22 05/27/22 05/27/22 23:59 07:59 15:59 Intake Total 800 900 Output Total 375 2250 Balance 425 -1350 Laboratory Tests 05/27/22 03:21 05/27/22 03:21 WBC 24.8 H RBC 3.52 L Hgb 11.7 L Hct 34.4 L MCV 97.7 MCH 33.2 MCHC 34.0 RDW 13.1 Plt Count 293 MPV 10.3 Immature Gran % (Auto) 1.7 H Neut % (Auto) 80.3 H Lymph % (Auto) 9.9 L [place] % (Auto) 6.9 Eos % (Auto) 0.8 Baso % (Auto) 0.4 Lymph # (Auto) 2.46 [place] # (Auto) 1.7 H Eos # (Auto) 0.2 Baso # (Auto) 0.1 Abs Immat Gran (auto) 0.41 H Absolute Neuts (auto) 19.9 H Absolute Nucleated RBC 0.0 Nucleated RBC % 0.0 Post-procedural complaints: none Patient Feedback: Patient satisfied with anesthetic care.
--- NOTE | 2022-05-27 12:16 | PC.NURSE ---
[id number] Consulted with patient to assess needs related to . Mother led conversation with her experience with feeding baby so far. Mother works well with her infant with encouragement and has infant skin to skin. Reviewed working with infant, breast, nipples and how to protect the nipples with an optimal deep latch, good positioning, and good hand washing. Mother voiced understanding the benefits of skin to skin, responding to feeding cues, frequencies of feeding 8-12 times in 24 hours (approximately 2-3 hours), duration of feedings, milk production, intake/output feeding sheet and signs of adequate intake encouraging swallowing at the breast. Mother plans on continuing to attempt to breastfeed, pump, then supplement with any breast milk she pumps along with formula. Infant shows rare feeding cues with stimulating with skin to skin and massage but makes no effort to breastfeed. Encouraged mother to pump consistently 8 times in 24 hours (every 3 hours) for milk supply, that there should be no pain with pumping, along with risk and benefits of using an electric pump. Assessment of inverted nipples are grade 2 with excoriations present on both nipples. Mother voiced infant had latched with and without a nipple shield. Nipple care reviewed with optimal latch and good positioning, comfort, healing with warm, wet washcloth to rinse breast, then leave open to air-dry, colostrum may be left on nipples to dry but have clean hands when touching the nipple/breast as needed. Reviewed the risk and benefits of using a nipple shield as a tool Discussed the risks of low milk production as it pertains to her inverted nipples, nipple shield use, thyroid disease and infants tongue restriction. Demonstrated proper care of pumping supplies with washing, drying and preventing condensation in pump tubing. Resources used to facilitate learning were used from the mom and baby guide. Mother voiced understanding of the education shared, calling for assistance if the infant does not latch or if there is discomfort with . Reported to the primary RN.
[2022-05-27 12:35] VITALS: BP 108/67; PULSE 80; RESP 16; TEMP 36.6; O2SAT 97
[2022-05-27] MEDS: ACETAMINOPHEN 325 MG TABLET 650 MG PO (16:16)
[2022-05-27] MEDS: NICOTINE (*PBKC) 21 MG PATCH 1 PATCH TRANSDERM (17:30)
--- NOTE | 2022-05-27 19:55 | PC.NURSE ---
Lower abdominal incision noted to have approx 1 cm area of slight very minimal separation in the center. Very small drop of serous drainage noted. Surgical glue intact. No redness or swelling. 1/4 in steri strips applied.
[2022-05-27 20:00] VITALS: BP 134/78; PULSE 77; RESP 18; TEMP 36.4; O2SAT 100
--- NOTE | 2022-05-27 20:20 | PC.NURSE ---
Pt up and ambulatory. States she went outside to see her other child in parking lot. Appears comfortable.
[2022-05-28 08:50] VITALS: BP 116/74; PULSE 87; RESP 18; TEMP 36.4; O2SAT 99
[2022-05-28] MEDS: GABAPENTIN 300 MG CAPSULE PO ×3 (08:51→17:45)
[2022-05-28] MEDS: DOCUSATE SODIUM 100 MG CAPSULE PO ×2 (08:52→17:45)
[2022-05-28] MEDS: MULTIVIT/MIN/PREN/FOL AC/IRON TABLET 1 TAB PO (08:52)
[2022-05-28] MEDS: HYDROcodone/acetaminophen (*CRX) 10-325 MG TABLET 1 TAB PO ×2 (08:52→12:13)
[2022-05-28] MEDS: IBUPROFEN 600 MG TABLET PO ×2 (08:53→15:27)
[2022-05-28] MEDS: NICOTINE (*PBKC) 21 MG PATCH 1 PATCH TRANSDERM (08:54)
--- NOTE | 2022-05-28 10:49 | PM.OBPNVD ---
OB - PN: Subj Subjective Date/time seen: 05/28/22 10:49 Patient comments: no complaints, pain well controlled, incisional pain, tolerating diet and flatus present OB - PN: Obj Data Labs CBC & Chem 7: 05/27/22 03:21 OB - PN A/P Plan day: 2 Plan: routine care Comments: POD#2 LTCS - no problems, Time Spent With Patient Time: Total time spent is greater than 50% in coordination of care (as documented) at patient's floor/unit and/or counseling patient: Exam Const: General: comfortable, no acute distress and alert Resp: Effort & Inspection: normal respiratory effort Auscultation: no crackles, no rales and no rhonchi Cardio: Rate: regular rate Heart sounds: no click, no murmurs and no rubs GI: Inspection: non-distended GI Palp: No Tenderness to palpation present (GI) Auscultation: normal bowel sounds Other: Incision - CDI Extrem: General: normal to inspection, no pedal edema and no calf tenderness
--- NOTE | 2022-05-28 10:50 | PM.OBDSVD ---
DS: Admitting Diagnosis Discharge Date 05/28/22 Admitting Diagnosis term , elective OB - DS: Summary OB Procedures : NST and Ultrasound OB Procedures Intrapartum: Tubal ligation OB Procedures: : None Peripartum Data Procedures: Procedures Operation Date: 05/26/22 12:00 Actual Procedure Side Surgeon p Section James Wallis MD Time Spent with Patient Time attestation: Total time spent providing and/or coordinating discharge services: DS: Data Data Completed and Pending Pending studies at discharge: Pending at discharge 05/26/22 12:27 Surgical [PTH] Routine Surgical [PTH] Routine Surgical [PTH] Routine Discharge Plan Discharge Discharging Clinician: James Wallis Patient Disposition: Home, Self-Care Activity: pelvic rest Diet: regular Patient Instructions: Antibiotic Form Stand Alone Forms: General Discharge Information Follow-up/Referrals: James Wallis MD [Physician] - Discharge Medications: New hydrocodone-acetaminophen 5-325 mg tablet 1 tablet PO Q4H PRN (Reason: pain) Qty: 25 0RF Continued acetaminophen [Tylenol Extra Strength] 500 mg tablet 1,000 mg PO Q6-8H PRN (Reason: Headache) cholecalciferol (vitamin D3) 125 mcg (5,000 unit) capsule 125 mcg PO DAILY folic acid 1 mg tablet 1 tablet PO DAILY nicotine 21 mg/24 hr Patch 24 Hour 1 patch TRANSDERMAL DAILY Adult Low Dose Aspirin 81 mg Tablet 81 mg PO BID gabapentin 300 mg capsule 300 mg PO TID Date of admission: 05/26/22 10:01 Primary Care Provider: PHYSICIAN,HISTORY DEPARTMENT CHAIR Admitting Provider: James Wallis Attending physician on admission: James Wallis Condition: Stable
[2022-05-28 12:52] VITALS: BP 121/76; PULSE 74; RESP 18; TEMP 36.8; O2SAT 100
--- NOTE | 2022-05-28 14:57 | PC.NURSE ---
[id number] Consulted with patient to assess needs related to . Mother led conversation with her experience with feeding baby so far. Mother works well with her infant with encouragement and attempts to latch infant, pumps her breast, and supplements. Reviewed working with infant, breast, nipples and how to protect the nipples with an optimal deep latch, good positioning, and good hand washing. Encouraged understanding the benefits of skin to skin, responding to feeding cues, frequencies of feeding 8-12 times in 24 hours (approximately 2-3 hours), duration of feedings, milk production, intake/output feeding sheet and signs of adequate intake encouraging swallowing at the breast. Reviewed positioning and alignment, supporting breast, off-centered (asymmetrical latch) and leading with the chin with big open wide gape. Discussed concerns regarding her tyroid disease effects on milk supply, inverted nipples needing stimulation, and infant having a tight tongue to learn to navigate. Mother states she didn't latch or pump this morning due to recovery sleeping. RN reviewed stimulating milk production with pumping and hand expression/compression. Mother voiced she would call for a pumping assessment. [phone] Mother is pumping and has collected 30-32 mls collectively from each breast. Instructions for pumping given on cleaning, care, usage, that there should be no pain, pumping schedule for milk production, collection, and storage of human milk. Parents are encouraged to record pumping schedule on the feeding sheet. Patient was assessed for correct placement, flange size, to pump for comfort and nipple stretching/stimulation for adequate milk production every 3 hours (8 times in 24 hours). Mother verbalizes she is able to independently latch with appropriate positioning/alignment. She denies any nipple discomfort and is responsively .Discussed the excoriations seen on her nipples yesterday and the importance of working with getting in a good position with a good latch and to call for assistance. Infant is currently meeting outcomes for weight, output, jaundice and feeding frequencies of 8-12 times in 24 hours. Mother is encouraged to call for assistance if her doesn?t latch or there is discomfort with latching. Mother voiced understanding of information shared and mom and baby guide reviewed for additional resource information . Reported to the primary RN.
[2022-05-28 15:20] VITALS: BP 106/68
[2022-05-28] MEDS: HYDROcodone/acetaminophen (*CRX) 5-325 MG TABLET 1 TAB PO ×2 (15:27→18:43)
[2022-05-28 18:40] VITALS: BP 109/70; PULSE 75; RESP 16; TEMP 36.7
[2022-05-28 21:15] VITALS: BP 108/64; PULSE 78; RESP 16; TEMP 36.7
[2022-05-29] MEDS: IBUPROFEN 600 MG TABLET PO (03:18)
[2022-05-29] MEDS: HYDROcodone/acetaminophen (*CRX) 5-325 MG TABLET 1 TAB PO ×2 (03:18→08:21)
--- NOTE | 2022-05-29 08:11 | PM.OBPNVD ---
OB - PN: Subj Subjective Date/time seen: 05/29/22 08:11 Patient comments: no complaints, pain well controlled, incisional pain, tolerating diet and flatus present OB - PN: Obj Data Labs CBC & Chem 7: 05/27/22 03:21 OB - PN A/P Plan day: 3 Plan: routine care, discharge home and other Comments: Incision check in one week. Given precautions Time Spent With Patient Time: Total time spent is greater than 50% in coordination of care (as documented) at patient's floor/unit and/or counseling patient: Exam Const: General: comfortable, no acute distress and alert Resp: Effort & Inspection: normal respiratory effort Auscultation: no crackles, no rales and no rhonchi Cardio: Rate: regular rate Heart sounds: no click, no murmurs and no rubs GI: Inspection: non-distended GI Palp: No Tenderness to palpation present (GI) Auscultation: normal bowel sounds Other: Incision - CDI Extrem: General: normal to inspection, no pedal edema and no calf tenderness
[2022-05-29 08:20] VITALS: BP 114/75; PULSE 70; RESP 16; TEMP 36.5; O2SAT 99
[2022-05-29] MEDS: GABAPENTIN 300 MG CAPSULE PO (08:21)
[2022-05-29] MEDS: DOCUSATE SODIUM 100 MG CAPSULE PO (08:21)
[2022-05-29] MEDS: MULTIVIT/MIN/PREN/FOL AC/IRON TABLET 1 TAB PO (08:21)
[2022-05-29] MEDS: TETANUS,DIPHTHERIA,AC PERTUSSIS ADULT (0.5 ML) BOOSTRIX IM (08:22)
[2022-05-29] MEDS: NICOTINE (*PBKC) 21 MG PATCH 1 PATCH TRANSDERM (08:31)
--- NOTE | 2022-05-29 09:00 | PC.NURSE ---
Patient viewed the discharge video Mother & Baby Care, The First Two Weeks . Patient was given the opportunity and encouraged to ask questions. Patient verbalized understanding of information shared and has been given the mother/baby guide for home reference.
--- NOTE | 2022-05-29 16:21 | PC.NURSE ---
[id number] Mother led the conversation with her experience and plan to feed her so far and states she is able to latch to the breast, she is pumping for milk supply (pumped 65 mls), and bottle feeding breastmilk confident in her ability to feed her . Mother is feeding appropriately for growth of and understands stimulating to eat if needed. has had appropriate feedings in the last 24 hours meets the outcomes for weight, output and jaundice at this time. Mother states she is confident to continue to attempt to breastfeed, pump and feed her infant at home or when to call for assistance and denies any additional assistance or education at this time. Reinforced understanding of milk production, transition of milk, signs of adequate intake, prevention/relief of engorgement, responsive after visualizing feeding cues, the different methods of stimulating to breastfeed 2-3 hours after the start of the last feeding, community resources, medication information reviewed per [employer], care as it pertains to her inverted nipples and tight tongue, and when to call a provider using the resource of the mom and baby guide/[facility] website. Mother agrees to have RN assess latch. Infant doesn't latch optimally and nipple is blanched and pinched after a few attempts. Mother cautioned again about concerns and is confident with infant growing things will improve and states she has enough milk to feed both babies . (Mother lives with a that is lactating as well having a one month old.) Boyfriend and [id number] are actively supportive as well. Mother voiced understanding of the education shared. Reported to the primary RN.
[2022-05-30 09:20] VITALS: BP 117/81; PULSE 77; RESP 20; TEMP 37.2; O2SAT 98
--- NOTE | 2022-06-16 21:48 | PM.OBDSVD ---
DS: Admitting Diagnosis Discharge Date 05/29/22 Admitting Diagnosis term gestation DS: Discharge Diagnosis Discharge Diagnosis (1) Delivery by elective section: Code(s): O82 - Encounter for delivery without indication Status: Acute OB - DS: Summary OB Procedures : NST and Ultrasound OB Procedures Intrapartum: OB Procedures: : P.P. tubal ligation Peripartum Data Procedures: Procedures Operation Date: 05/26/22 12:00 Actual Procedure Side Surgeon p Section James Wallis MD Time Spent with Patient Time attestation: Total time spent providing and/or coordinating discharge services: DS: Data Data Completed and Pending Completed studies during hospitalization: Pending at discharge 05/26/22 12:27 Surgical [PTH] Routine Surgical [PTH] Routine Surgical [PTH] Routine Discharge Plan Discharge Consulting providers: Kia Reyes ; Andrzej Jenkins ; Rakel Rowland Discharging Clinician: James Wallis Patient Disposition: Home, Self-Care Activity: pelvic rest Diet: regular Discharge Instructions: Education: Mom and Baby Guide Given to: Mother Follow-Up: Call your delivering provider's office for an appointment to be seen in: 1 Week Mom and baby should come to the [facility] for the follow-up appointment. Appointment Date/Time: May 30, 2022 at 9:00 am What to expect at your follow-up visit: Blood Pressure Check Physical Assessment Call [phone] if you are unable to keep your appointment time. BREAST CARE: * Wear a snug supportive bra. * For engorgement discomfort: Breast Feeding: * Apply warm moist washcloths * Express milk as needed to relieve engorgement * Wear loose clothing * For sore nipples: * Identify correct latch-on * Apply warm moist washcloths before and after nursing * Air dry nipples after nursing * May apply Lansinoh cream to nipples ABDOMINAL INCISION: * Allow incision to air dry * Do NOT use lotions for powders on your incision * When showering, allow soap and water to run over the incision, but do not wash incision PERINEAL CARE: * Until bleeding stops, use your shayan bottle after urinating * Change your pad frequently throughout the day * You may take sitz baths several times a day (fill your bathtub with warm water and soak for 20 minutes.) Do NOT bathe in the water * No tub baths until seen by your physician - You may shower ACTIVITY: * Rest as much as possible. * Do not exercise or lift anything heavier than your baby (such as laundry or other children.) * Avoid stairs or driving as much as possible. * Do not put anything into the vagina. No douching, tampons, or sexual activity until seen by physician. NOTIFY PHYSICIAN IF YOU HAVE ANY QUESTIONS OR IF ANY OF THE FOLLOWING SYMPTOMS OCCUR: * If your incision becomes red, swollen, or more painful than what you have experienced in the hospital. * If your vaginal bleeding becomes foul smelling. * If your vaginal bleeding becomes more heavy than a period or if your bleeding changes from pink to bright red. However, you may pass an occasional walnut-sized clot once or twice for the first week . * If you experience a sharp, shooting pain in you calves. * If you discover a hard, reddened area on your breast or if you experience flu-like symptoms. DIET: * Eat regular, well-balanced meals. * Drink plenty of fluids daily. If , drink to thirst. Patient Instructions: Antibiotic Form Stand Alone Forms: General Discharge Information Follow-up/Referrals: James Wallis MD [Physician] - Discharge Medications: New hydrocodone-acetaminophen 5-325 mg tablet 1 tablet PO Q4H PRN (Reason: pain) Qty: 25 0RF Continued acetaminophen [Tylenol Extra Strength] 500 mg tablet 1,000 mg PO Q6-8H PRN (Reason: Headache) cholecalc
== END 2022-05-29 11:31 | disposition home or self-care (01) | DRG 540 ==
LOC: ANHLDR 10:04 → ANHOB2 15:51
PROVIDERS: Admitting Provider Obstetrics & Gynecology; Visit Provider Obstetrics & Gynecology
PROC: 10D00Z1 Extraction of Products of Conception, Low, Open Approach (ICD-10-PCS; CPT 59514; principal; 2022-05-26 12:00)
DX: O13.4 Gestational [pregnancy-induced] hypertension without significant proteinuria, complicating childbirth (principal); Z37.0 Single live birth; Z3A.38 38 weeks gestation of pregnancy; O36.5930 Maternal care for other known or suspected poor fetal growth, third trimester, not applicable or unspecified; O99.824 Streptococcus B carrier state complicating childbirth; Z30.2 Encounter for sterilization; O99.892 Other specified diseases and conditions complicating childbirth; M19.90 Unspecified osteoarthritis, unspecified site; O99.284 Endocrine, nutritional and metabolic diseases complicating childbirth; E06.3 Autoimmune thyroiditis
CPT/HCPCS: 36415; 85025; 88302; 88307; 90715; A9270; J0131; J1885; J2270; J2274; J2370; J2405; J2590; J7120

== ENCOUNTER 2022-06-25 18:25 | Emergency (ER) | payer OTHER, SELFPAY ==
--- NOTE | ~2022-06-25 | CT_ITS ---
EXAMINATION: CT abdomen pelvis w con DATE: 06/25/2022 19:37 INDICATION: pain after recent TECHNIQUE: Computed tomography (CT) of the abdomen and pelvis was performed with 100 mL Omnipaque-300 intravenous contrast. Automated exposure control and iterative reconstruction technique were employe d. The dose-length product was 826.89 mGy-cm. COMPARISON: None. FINDINGS: Lower thorax: Unremarkable Liver: Normal. Biliary/Gallbladder: Gallbladder is normal. No bile duct dilation. Pancreas: No mass or duct dilation. Spleen: Normal. Adrenals:No mass. Kidneys: No mass, stone, or hydronephrosis. GI tract: No small or large bowel dilation. Appendix not visualized. Mesentery/Peritoneum: No ascites, mass, or free air. Retroperitoneum: No mass. Pelvis: Pelvic organs are within normal limits. Transverse lower uterine segment scar. Trace volume f ree pelvic fluid, within physiologic range. Soft Tissues: Transverse lower abdominal scar. Bones: No acute osseous finding. IMPRESSION: No acute abdominal pelvic process detected. Specifically, no CT evidence of section related complication. Reviewed, dictated and finalized at location K. IMPRESSION: No acute abdominal pelvic process detected. Specifically, no CT evidence of desmond arean section related complication.
[2022-06-25 18:28] VITALS: BP 134/78; PULSE 85; RESP 18; O2SAT 100
--- NOTE | 2022-06-25 19:11 | ED.GENADULT ---
HPI - General Adult General Chief complaint: Unspecified Stated complaint: post C section issues, need CT Time Seen by Provider: 06/25/22 18:56 History of Present Illness HPI narrative: 32-year-old female with May 26, complicated by infection and pain afterwards, presents here due to continued pain from her [employer] with request for CT for better characterization. Patient denies any fevers or chills, she is currently on ampicillin, states that she is still having pain in the suprapubic/left lower quadrant, and that yesterday she seemed to have passed a large blood clot. Denies any nausea or vomiting. States that it does hurt more when she coughs. States that she also has occasional headaches. Related Data Home Medications Medication Instructions Recorded Confirmed gabapentin 300 mg capsule 300 mg PO TID 07/30/21 05/26/22 acetaminophen 500 mg tablet 1,000 mg PO Q6-8H PRN Headache 08/13/21 05/26/22 (Tylenol Extra Strength) cholecalciferol (vitamin D3) 125 125 mcg PO DAILY 09/11/21 05/26/22 mcg (5,000 unit) capsule folic acid 1 mg tablet 1 tablet PO DAILY 05/01/22 05/26/22 aspirin 81 mg tablet 81 mg PO BID 05/23/22 05/23/22 nicotine 21 mg/24 hr daily 1 patch transdermal DAILY 05/23/22 05/26/22 transdermal patch Allergies Allergy/AdvReac Type Severity Reaction Status Date / Time No Known Allergies Allergy Verified 06/25/22 18:53 Review of Systems Review of Systems: CONST: No fever. HEENT: No sore throat C/V: No chest pain RESP: No cough GI: Reports left lower quadrant pain : Vaginal bleeding M/S: No joint pain. SKIN: No rash. NEURO: Headache PSYCH: [No depression] [facility] Past Medical History Medical History Anxiety Arthritis Degenerative joint disease (DJD) of lumbar spine Depression Delmy's disease HTN (hypertension) Inflammatory arthritis Migraine Recent surgical procedure on lower extremity 2020, right thigh Thyroid disorder Surgical History Surgical History H/O wrist surgery 2018, left History of ankle surgery 2006, left Family History Family History Mother Hypertension Grandparent Diabetes mellitus Heart disease Heart problem Breast cancer Carcinoma of colon Cerebrovascular accident Lung cancer Sibling Alcoholism Other Family history of alcoholism Family history of arthritis Family history of hearing loss Social History Social History Smoking packs per day: 0.75 Smoking cigarettes per day: 15.0 Years smoked: 20 Smoking pack-years: 15.00 Smoking status: Current every day smoker Tobacco type: cigarettes Second hand tobacco smoke exposure: Yes Additional smoking assessment comments: 1 or more pack daily Alcohol intake: current Alcohol use details: 1 drink per 1-3 months Substance use: never Gender identity (if verbalized by the patient): Female Sexual Orientation (if Verbalized by the Patient): Lesbian, Nieves, or Homosexual Spiritual care concerns: No Exam Narrative: EXAMINATION OF ORGAN SYSTEMS/BODY AREAS: Constitutional: Vital signs per nursing GENERAL:[No acute distress, non-toxic appearing.] HEAD: Normal with no signs of head trauma. EYES: EOMI, conjunctiva normal ENT: Hearing grossly intact LUNGS: Nonlabored breathing. HEART: [Regular rate and rhythm] ABD: [Soft], very mildly tender to deep palpation in the left lower quadrant/suprapubic area, incision well-healed without any signs of erythema or discharge EXT: Normal range of motion SKIN: [No rashes or lesions.] NEURO: [Alert and oriented x 3. No gross focal sensory or strength deficits.] PSYCH: Normal affect Course Vital Signs Vital signs: Vital Signs Pulse Rate 85 06/25/22 18:28 Respiratory Rate 18 06/25/22 18:28 Blood Pre
[2022-06-25 19:29] LABS: Estimated CRCL calculation 81 ml/min; Estimated Glomerular Filt Rate 58
[2022-06-25 19:44] LABS: Basophils Absolute Auto 0.1 K/mm3 (0.0-0.1); Basophils Percent Auto 0.7 % (0.2-1.2); Eosinophils Absolute Auto 0.3 K/mm3 (0-0.3); Eosinophils Percent Auto 2.8 % (0-4.4); Hematocrit 42.2 % (37.0-47.0); Hemoglobin 13.8 g/dL (12.0-15.0); Immature Granulocyte Absolute 0.05 K/mm3 (0.00-0.031); Immature Granulocyte Percent A 0.4 % (0-0.5); Lymphocytes Absolute Auto 3.45 K/mm3 (0.9-3.2); Lymphocytes Percent Auto 30.5 % (18.3-44.2); Mean Corpuscular HGB Conc 32.7 g/dl (32-36); Mean Corpuscular Hemoglobin 31.9 pg (26-34); Mean Corpuscular Volume 97.5 fl (80-100); Monocytes Absolute Auto 0.8 K/mm3 (0.1-0.6); Monocytes Percent Auto 7.1 % (2.6-8.5); Neutrophils Absolute Auto 6.6 K/mm3 (1.3-6.7); Neutrophils Percent Auto 58.5 % (45.5-73.1); Platelet Count Result 257 k/mm3 (150-375); Red Blood Count 4.33 M/mm3 (4.2-5.4); Red Cell Distribution Width 12.6 % (11.5-14.5); White Blood Count 11.3 K/mm3 (4.5-10.0)
[2022-06-25 19:55] LABS: Alanine Aminotransferase 17 U/L (6-35); Albumin Level 4.2 g/dL (3.5-5.1); Alkaline Phosphatase 68 U/L (38-126); Anion Gap 8 mmol/L (8-16); Aspartate Amino Transferase 20 U/L (14-36); Bilirubin,Total 0.3 mg/dL (0.2-1.3); Blood Urea Nitrogen 10 mg/dL (7-17); Calcium 8.9 mg/dL (8.4-10.2); Carbon Dioxide 29 mmol/L (22-30); Chloride 104 mmol/L (98-107); Estimated CRCL calculation 81 ml/min; Estimated Glomerular Filt Rate 58; Glucose 88 mg/dL (65-110); Lipase 46 U/L (23-300); Potassium 3.8 mmol/L (3.4-5.0); Sodium 141 mmol/L (137-145)
[2022-06-25 19:56] LABS: Lactic Acid Reflex 1.5 mmol/L (0.7-2.0)
[2022-06-25] MEDS: LACTATED RINGERS 1,000 ML 999 ML IV CONT (20:28)
[2022-06-25 20:41] LABS: Appearance Urine Clear (Clear); Bilirubin Urine Negative (Negative); Color Urine Yellow (Yellow); Glucose Urine UA Negative (Negative); Ketones Urine Negative (Negative); Leukocyte Esterase Ur Negative LEU/UL (Negative); Nitrate Urine Negative (Negative); Protein Urine Negative (Negative); Urobilinogen Urine 0.2 mg/dL (<2.0)
[2022-06-25 20:47] LABS: Bacteria Urine Trace /hpf; Mucus Urine Rare /lpf; RBC Urine 0-2 /hpf (0-2); Squamous Epithelial Cell Urine Few /hpf (Few); WBC Urine 0-3 /hpf
[2022-06-25 20:56] LABS: Add Urine Microscopic? YES; Blood Urine Trace (Negative)
[2022-06-25 21:55] VITALS: BP 139/76; PULSE 89; RESP 16; O2SAT 97
--- NOTE | 2022-07-03 13:19 | PC.NURSE ---
LATE ENTRY This note is being entered to document information to the patient's record. The following information was omitted on [06/25/22], by [cristiane nelson]. LR ended at [id number]
== END 2022-06-25 21:55 | disposition home or self-care (01) ==
PROVIDERS: Nurse Practitioner Family; Emergency Provider Emergency Medicine
DX: O99.355 Diseases of the nervous system complicating the puerperium (principal); G89.18 Other acute postprocedural pain; R10.32 Left lower quadrant pain; O16.5 Unspecified maternal hypertension, complicating the puerperium; O99.285 Endocrine, nutritional and metabolic diseases complicating the puerperium; E06.3 Autoimmune thyroiditis; O99.893 Other specified diseases and conditions complicating puerperium; M47.816 Spondylosis without myelopathy or radiculopathy, lumbar region; M19.90 Unspecified osteoarthritis, unspecified site; O99.335 Smoking (tobacco) complicating the puerperium; F17.210 Nicotine dependence, cigarettes, uncomplicated
CPT/HCPCS: 74177; 80053; 81001; 83605; 83690; 85025; 96360; 99284; J7120; Q9967

== ENCOUNTER 2024-06-20 08:50 | Emergency (ER) | payer SELFPAY ==
[2024-06-20 08:58] VITALS: BP 135/84; PULSE 109; RESP 20; TEMP 36.4; O2SAT 99
--- NOTE | 2024-06-20 09:08 | ED.URI ---
HPI - URI/Sore Throat General Chief Complaint: Upper Respiratory Infection Stated Complaint: Fever/Body Aches/Congstion/Sore Throat Time Seen by Provider: 06/20/24 09:09 Source: patient, RN notes reviewed and old records reviewed Mode of arrival: ambulatory Limitations: no limitations History of Present Illness HPI Narrative: 34 year old female who presents to [facility] care with complaints of 4 day history of low grade fevers, body aches and some nausea. Patient reports that she awoke this morning with sore throat and noted some white spots on her tonsils. Patient reports that she has been taking DayQuil and NyQuil for her symptom. Patient reports no known ill contacts. MD elicited complaint: fever, sore throat, nasal congestion and other (body aches and nausea) Onset (ago): day(s) (4) Pain scale (0-10): 6 Able to tolerate fluids by mouth: Yes Treatments prior to arrival: other (DayQuil and NyQuil) Related Data Allergies Allergy/AdvReac Type Severity Reaction Status Date / Time No Known Allergies Allergy Verified 06/25/22 18:53 Review of Systems Review of Systems: CONSTITUTIONAL: Reports malaise, chills, sweats, or fever. EYES: Denies visual changes, redness, or discharge. ENT: Reports rhinorrhea, congestion,no sinus pain, no otalgia and positive for sore throat. CARDIOVASCULAR: Denies chest pain, palpitations, or edema. RESPIRATORY: Reports cough.? Denies dyspnea. GASTROINTESTINAL: Denies abdominal pain,positive for nausea,no vomiting, diarrhea SKIN: Denies rash or itching. MUSCULOSKELETAL: Reports myalgia. NEUROLOGIC: Denies headache. All systems reviewed & are unremarkable except as noted in HPI and below PMFSH Past Medical History Medical History Anxiety Arthritis Degenerative joint disease (DJD) of lumbar spine Depression Delmy's disease HTN (hypertension) Inflammatory arthritis Migraine Recent surgical procedure on lower extremity 2020, right thigh Thyroid disorder Surgical History Surgical History H/O wrist surgery 2019, left History of ankle surgery 2006, left Family History Family History Mother Hypertension Grandparent Diabetes mellitus Heart disease Heart problem Breast cancer Carcinoma of colon Cerebrovascular accident Lung cancer Sibling Alcoholism Other Family history of alcoholism Family history of arthritis Family history of hearing loss Social History Social History Smoking packs per day: 0.75 Smoking cigarettes per day: 15.0 Years smoked: 20 Smoking pack-years: 15.00 Smoking status: Current every day smoker Tobacco type: cigarettes Second hand tobacco smoke exposure: Yes Additional smoking assessment comments: 1 or more pack daily Alcohol intake: current Alcohol use details: 1 drink per 1-3 months Substance use: never Living arrangements: alone Gender identity (if verbalized by the patient): Female Sexual Orientation (if Verbalized by the Patient): Lesbian, Nieves, or Homosexual Spiritual care concerns: No Comments At time of signature, agree with nursing past medical, surgical, social and family history. There is no relevant family history pertinent to the presenting complaint Exam Narrative: GENERAL: Well-appearing, well-nourished, and in no acute distress. HEAD: Normocephalic EYES: PERRLA, conjunctivae clear ENT: Nares clear, turbinates edematous and erythematous, clear discharge. Mucous membranes moist. TM pearly villavicencio with dull light reflex bilaterally; no tragal tenderness. Oropharynx erythematous without lesions. Tonsils enlarged and with tonsil stones noted, no drooling, no hoarseness, no trismus, uvula midline. NECK: Supple. No lymphadenopathy CHEST: Clear to ausc
[2024-06-20 09:14] LABS: EDSTREPNEGPOS1 Presumptive Negative
[2024-06-20 09:39] LABS: EDINFLUASCREEN Negative; EDINFLUBSCREEN Negative
== END 2024-06-20 09:53 | disposition home or self-care (01) ==
PROVIDERS: Emergency Provider Registered Nurse
DX: J02.9 Acute pharyngitis, unspecified (principal); B34.9 Viral infection, unspecified; Z20.822 Contact with and (suspected) exposure to COVID-19; F17.210 Nicotine dependence, cigarettes, uncomplicated; M47.816 Spondylosis without myelopathy or radiculopathy, lumbar region; E06.3 Autoimmune thyroiditis; I10 Essential (primary) hypertension; M13.80 Other specified arthritis, unspecified site
CPT/HCPCS: 87081; 87426; 87804; 87880; 99213; G0463

== ENCOUNTER 2025-02-16 13:24 | Outpatient (CLI) | payer BC, SELFPAY ==
--- NOTE | ~2025-02-16 | MMUS_ITS ---
EXAMINATION: MM diagnostic hola BI w luz, US breast BI complete HISTORY: Breast abscess. TECHNIQUE: Additional 3-D tomosynthesis images of the breasts were performed and synthetic 2-D images were generated. CAD analysis was submitted and interpreted. High resolution bilateral complete breas t ultrasound was performed. COMPARISON: None BREAST PARENCHYMAL COMPOSITION: Dense: The breasts are extremely dense, which lowers the sensitivity of mammography. FINDINGS: MAMMOGRAPHIC FINDINGS: There are no discrete masses, calcifications or architectural distortion in either breast to suggest malignancy. ULTRASOUND: Complete US of all 4 quadrants of the breast/s and retroareolar region was reviewed. Right breast: At 12:00, 2 cm from the nipple there is an oval parallel oriented circumscribed hypoech oic 6 mm mass without internal vascularity or posterior features. At 9:00, 2 cm from the nipple there is a 7 mm cyst. Left breast: At 3:00, 5 cm from the nipple there is an oval parallel oriented hypoechoic mass with po sterior acoustic enhancement and no internal vascularity measuring 10 mm greatest dimension. IMPRESSION: 1. Probable benign bilateral sonographic masses. 2. Recommend 6 month follow-up diagnostic bilateral mammogram and Limited bilateral breast ultrasound BI-RADS category 3, probably benign findings. Reviewed, dictated and finalized at location B. IMPRESSION: 1. Probable benign bilateral sonographic masses. 2. Recommend 6 month follow-up diagnostic bilateral mammogram and Limited bilat eral breast ultrasound BI-RADS category 3, probably benign findings.
--- OUTSIDE RECORDS SUMMARY | 2025-02-16 13:50 | XMS_ITS | Clinical Summary ---
Author Organization [facility] Address [address] [place] [address] Phone Care Team Providers Care Rod Buster Name Role Phone Donnie Barcenas MD Unavailable [phone] Maryellen Chong MD Unavailable Makenzie Choi APRN Unavailable [phone] Donnie Barcenas MD Unavailable [phone] Juan Pritchett MD Primary Care Provider Betsy Aldana DPM Unavailable Allergies No known active allergies Medications ibuprofen (MOTRIN) 200 MG Tablet Take 800 mg by mouth every 8 hours as needed. TAKES 4 AT A TIME, TWICE A DAY Active Acetaminophen (TYLENOL EXTRA STRENGTH PO) Take by mouth. TAKES 1 DAILY Active HYDROcodone-acet aminophen (NORCO) 5-325 MG TabletIndication s:Plantar fasciitis Take 1 Tablet by mouth every 4 hours as needed for Mild or more severe pain. 40 Tablet 05/12/2023 Active Active Problems Problem Noted Date Diagnosed Date Thyroid goiter 01/07/2021 Thyroid nodule 01/07/2021 Arthralgia 01/07/2021 Hypothyroid 12/28/2020 Leukocytosis 12/28/2020 Palpitations 12/28/2020 Smoker 12/28/2020 Immunizations Immunization Administration Dates Next Due TDAP Vaccine 05/29/2022,08/09/2019 Family History Medical History Relation Name Comments No Known Problems Brother No Known Problems Father Hypertension Mother Relation Name Status Comments Brother Alive Father Alive Mother Alive Social History Tobacco Use Types Packs/Day Years Used Date Smoking Tobacco: Every Day Cigarettes 1 19.2 Started: 2005 Smokeless Tobacco: Former Snuff Tobacco Cessation:Ready to Q uit: Not Asked; Counseling Given: Not Answered Alcohol Use Standard Drinks/Week Comments Yes 0 (1 standard drink = 0.6 oz pur e alcohol) occasional PHQ-2 Answer Date Recorded Total Score - Questions 1-9 17 07/2021 Sexually Active Control Partners Comments Yes Female Comments No Sex and Gender Information Value Date Recorded Sex Assigned at Not on file Legal Sex Female 11:00 PM CDT Gender Identity Not on file Sexual Orientation Not on file Last Filed Vital Signs Vital Sign Reading Time Taken Comments Blood Pressure 128/77 05/12/2023 1:35 PM CDT Pulse 85 05/12/2023 1:35 PM CDT Temperature 36.6 C (97.9 F) 05/12/2023 1:35 PM CDT Respiratory Rate 16 05/12/2023 1:35 PM CDT Oxygen Saturation 95% 05/12/2023 1:35 PM CDT Inhaled Oxygen Concentration - - Weight 103.2 kg (227 lb 8 oz) 05/12/2023 9:28 AM CDT Height 168.9 cm (5' 6.5 ) 05/12/2023 9:28 AM CDT Body Mass Index 36.17 05/12/2023 9:28 AM CDT Plan of Treatment Health Maintenance Due Date Last Done Comments Hepatitis B Immunization (1 of 3 - 19+ 3-dose series) 2011 Pneumococcal Immunization Combined (1 of 2 - PCV) 2011 Pap Smear 2013 Cervical Cancer Screening (CCS) 2022 HPV/Cotest 2022 Influenza Immunization (#1) 2024 SARS-COV-2 Immunization ( - season) 2024 Respiratory Syncytial Virus (RSV) Immunization (Adult) (1 - 1-dose 75+ series) 2067 Hepatitis C Virus (HCV) Screening Completed 11/18/2021 DTaP/Tdap/Td Immunization Discontinued 2021, 08/09/2019 Meningococcal Immunization (ACWY) Aged Out No longer eligible based on patient's age to complete this topic Rotavirus Immunization Aged Out No lo nger eligible based on patient's age to complete this topic Insurance MEDICAID [employer] Care Teams Rod Buster Relationship Specialty Start Date End Date Juan Pritchett MD [address] [facility] [address] [facility] [address] [place] [address] PCP - General Family Medicine 11/12/21 Donnie Barcenas MD [address] [place], [place] [id number] Internal Medicine 04/24/21 Maryellen Chong MD [address] [facility] [address] [place] [id number] Consulting Physician Endocrinology 04/24/21 Makenzie Choi APRN [address] [place] [address] Family Medicine 06/07/21 Donnie Barcenas MD [address] [address] Internal Medicine 06/07/21 Betsy Aldana DPM [address] [place] [address] [address] [place] [id number] Consulting Physician Podiatry 03/24/23
--- OUTSIDE RECORDS SUMMARY | 2025-02-16 13:50 | XMS_ITS | Clinical Summary ---
Author Organization [facility] Address [address] [place] [address] Care Team Providers Care Parts Professional Name Role Phone Juan Pritchett MD Primary Care Provider Makenzie Choi NP Unavailable [phone] Donnie Barcenas MD Unavailable [phone] Maryellen Chong MD Unavailable Mateusz Reed MD Unavailable [phone] Gonzalo Houston MD Unavailable [phone] Terence Wallis MD Unavailable [phone] Allergies No known active allergies Medications No known medications Active Problems Problem Noted Date Diagnosed Date Unspecified mood (affective) disorder 07/06/2022 Assessment & Plan (07/14/2022 2:10 PM CDT): - chronic, uncontrolled - has history of anxiety and depression, Bipolar disorder, borderline personality disorder - has been on Xanax, Klonopin int he past, she has tried Cymbalta gained a lot of weight and was stopped - past history of hospital admissions 3x prior to the one she recently had - has been off medications for 10+ years except recently when she was started in period but on same day ended up admitted for suicidal ideation - attempt with intentional overdose - start Abilify low dose 2 mg daily as she has had success with it before (she will discuss about breast feeding but states she will not breast feed unless told safe to do so) - restart Zoloft 50 mg daily per her OBGYN provider - follow up in 4-6 weeks - also provided information/handouts for local mental health resources Bilateral plantar fasciitis 02/20/2022 Assessment & Plan (03/23/2023 10:49 AM CDT): - chronic, recurrent condition, not well controlled - got worse during and saw a feeder operator automatic - Neil only one and got steroid injections but did not help her - saw another primary care provider and referred already to podiatry - to one that accepts her insurance, has been told she will need Xrays to be done - discussed typical management options for this condition Assessment & Plan (02/18/2023 11:35 AM CDT): -chronic, not at goal -refer to podiatry -follow-up with PCP Chronic hypertension affecting 022 Overview (08/07/2022): CBC: WBC: 18, H/H/P: 12.8/37.6/273 CMP: creatinine: 0.59, AST: 20, ALT: 32 (normal range 6-29), mildy elevated, consider repeating in 1 mo PCR: 0.081 Last Assessment & Plan: Diagnosed in 2020. Did not start on medication management. Has not completed 24 hour urine/cmp. Normotensive in office today. Has blood pressure cuff at home, takes on occasion. AGA growth today and completed anatomy survey. Recommendations: Baseline 24 urine for total protein, CMP--sent with lab orders today Goal blood pressures <155/95; recommended to check once per day and record on log, report elevations to primary OB. Aspirin ( 162 mg) to be continued Serial growth every four weeks after 24 weeks Daily kick count starting at 28 weeks Weekly 10 point biophysical profile starting at 32 weeks serum laboratory criteria, persistent preeclampsia symptoms or severe uncontrolled hypertension is the preferred criteria for the diagnosis of superimposed preeclampsia, rather than mild gradual increases in blood pressure, in the 3rd trimester, with a need for medication adjustments Delivery initiation at 39 weeks Would benefit from Degenerative joint disease 12/03/2021 Overview (08/07/2022): Last Assessment & Plan: Reports discharge from rheumatology last year. Following with PCP, but difficult to get appointments with PCP. Also following with neuro surgery at [facility], was seen on 01/15 and they are trying to arrange portrait painter for patient, having challenges due to insurance coverage. Has pain all over back and neck. Was on diclofenac and meloxicam prior to with some benefit--had to stop due to . Restarted gabapentin after stopping due to in November, has had some relief with resuming gabapentin, now at 300mg TID. Did not resume Cymbalta as it was not helpful. C/C: bilateral heal pain and pain with walking, denies recent injury, trauma or fall. Denies fever, abscess. Denies diabetes, HgA1c in early : 5%. Erythema and edema noted at calcaneous, bilaterally. Recommendations: Reviewed above concerns with Dr. George, advised patient be seen at local ED, [facility] is patient's preference. Report called to ED, spoke with Dr. Noble and asked for ED to collect bilateral venous doppler studies and bilateral x-rays. Presentation and PMH reviewed. Alen LEGAL AIDE from ED called after patient seen today and stated doppler studies and X-rays were negative. Reports diagnosis is tibial tendonitis and they recommend referral to podiatry for possible joint injections. They will set up referral. Supportive shoes, compression stockings, and PT recommended to patient in office today. ED recommended repeating CBC in two weeks, WBC 17. No physical exam findings consistent with infection or wound. Patient would like another opinion for rheumatology which I will initiate that referral for her. Recommended evaluation with any falls at OB triage. Medication exposure during first trimester of pr egnancy 12/03/2021 Overview (08/07/2022): Was taking diclofenac, gabapentin, and cymbalta - pt has stopped taking soon as she found out around 4 weeks EGA. Thyroid nodule 12/03/2021 Assessment & Plan (03/23/2023 10:44 AM CDT): - chronic, stable - has known tyroid peroxidase antibodies - she has history of thyroid nodules - has known thyroid nodule as well - follows with endocrinology - Dr. Chong - now wants referral to a different Doorperson Or Luggage Porter - states nothing is being taken and worried about her thyroid nodule getting larger - currently not on levothyroixine - most recent TSH was 1.87 on 11/2020 - thyroid function has been checked during her as well No results found for: TSH Most recetn Thyroid US results as shown below US Thyroid 01/2023 IMPRESSION: 1. Grossly stable predominantly solid slightly hypoechoic mid left thyroid nodule measuring up to 1.2 cm. Follow-up ultrasound in 12 months is recommended to assess for stability as clinically indicated. 2. Bilateral submandibular lymph nodes, which are technically nonenlarged and nonspecific. ACR TI-RADS Risk Category: TR 4. Class 2 obesity due to exces s calories without serious comorbidity with body mass index (BMI) of 35.0 to 35.9 in adult 11/12/2021 Assessment & Plan (03/23/2023 10:51 AM CDT): Wt Readings from Last 3 Encounters: 03/16/23 103 kg (227 lb) 02/18/23 106.3 kg (234 lb 6.4 oz) 09/25/22 102.8 kg (226 lb 11.2 oz) Body mass index is 35.55 kg/m . - chronic, not at goal - some weight loss noted - continue to eat healthy, exercise as tolerated Assessment & Plan (02/18/2023 11:34 AM CDT): HPI: Condition is not at/near goal goal BMI <30 A&P: Healthy, high-protein, lower carbohydrate, lower fat lifestyle and exercise for 150min/week recommended Assessment & Plan (07/14/2022 11:47 AM CDT): Wt Readings from Last 3 Encounters: 07/14/22 98.9 kg (218 lb) 07/05/22 101.6 kg (224 lb) 07/04/22 100.7 kg (222 lb) Body mass index is 35.2 kg/m . - chronic, not at goal - however, she is currently so not very accurate - continue to eat healthy, exercise as tolerated Assessment & Plan (03/17/2022 5:39 AM CDT): Wt Readings from Last 3 Encounters: 03/13/22 115.4 kg (254 lb 6.4 oz) 03/12/22 110.4 kg (243 lb 6.4 oz) 01/15/22 102 kg (224 lb 12.8 oz) Body mass index is 42.65 kg/m . - chronic, not at goal - however, she is currently so not very accurate - continue to eat healthy, exercise as tolerated Assessment & Plan (11/12/2021 3:00 PM PATENT DRAFTER): Wt Readings from Last 3 Encounters: 11/12/21 103.9 kg (229 lb 1.6 oz) 10/16/21 104 kg (229 lb 4.8 oz) 08/16/21 101.1 kg (222 lb 14.4 oz) Body mass index is 37.26 kg/m . - chronic, not at goal - also so anticipate increase in weight in coming months - continue to ear healthy, exercises as tolerated Recurrent major depressive disorder, in full rem ission 11/12/2021 Assessment & Plan (03/23/2023 10:54 AM CDT): - chronic, uncontrolled - has history of anxiety and depression, Bipolar disorder, borderline personality disorder - has been on Xanax, Klonopin int he past, she has tried Cymbalta gained a lot of weight and was stopped - past history of hospital admissions 3x prior to the one she recently had - has been off medications for 10+ years except recently when she was started in period but on same day ended up admitted for suicidal ideation - attempt with intentional overdose - was started on Abilify and zoloft in past but currently off medications - saw another PCP on 02/19 in office and was referred to psychiatry for further assistance Assessment & Plan (02/18/2023 11:35 AM CDT): -chronic, not at goal -patient has stopped taking her Abilify -patient denies any suicidal ideation -refer to Psychiatry -follow-up with PCP Assessment & Plan (07/14/2022 2:10 PM CDT): - chronic, uncontrolled - has history of anxiety and depression, Bipolar disorder, borderline personality disorder - has been on Xanax, Klonopin int he past, she has tried Cymbalta gained a lot of weight and was stopped - past history of hospital admissions 3x prior to the one she recently had - has been off medications for 10+ years except recently when she was started in period but on same day ended up admitted for suicidal ideation - attempt with intentional overdose - start Abilify low dose 2 mg daily as she has had success with it before (she will discuss about breast feeding but states she will not breast feed unless told safe to do so) - restart Zoloft 50 mg daily per her OBGYN provider - follow up in 4-6 weeks - also provided information/handouts for local mental health resources Assessment & Plan (11/12/2021 2:59 PM PATENT DRAFTER): - chronic, improved - has history of anxiety and depression - has been on Xanax, Klonopin int he past, she has tried Cymbalta but lost a lot of weight and was stopped - depression is doing well, anxiety is also improved - she is not on any medications for these at this time - continue with current therapy, self control/coping mechanisms SRI (generalized anxiety disorder) 08/29/2021 Assessment & Plan (03/23/2023 10:54 AM CDT): - chronic, uncontrolled - has history of anxiety and depression, Bipolar disorder, borderline personality disorder - has been on Xanax, Klonopin int he past, she has tried Cymbalta gained a lot of weight and was stopped - past history of hospital admissions 3x prior to the one she recently had - has been off medications for 10+ years except recently when she was started in period but on same day ended up admitted for suicidal ideation - attempt with intentional overdose - was started on Abilify and zoloft in past but currently off medications - saw another PCP on 02/19 in office and was referred to psychiatry for further assistance Assessment & Plan (02/18/2023 11:35 AM CDT): -chronic, not at goal -patient has stopped taking her Abilify -patient denies any suicidal ideation -refer to Psychiatry -follow-up with PCP Assessment & Plan (07/14/2022 2:10 PM CDT): - chronic, uncontrolled - has history of anxiety and depression, Bipolar disorder, borderline personality disorder - has been on Xanax, Klonopin int he past, she has tried Cymbalta gained a lot of weight and was stopped - past history of hospital admissions 3x prior to the one she recently had - has been off medications for 10+ years except recently when she was started in period but on same day ended up admitted for suicidal ideation - attempt with intentional overdose - start Abilify low dose 2 mg daily as she has had success with it before (she will discuss about breast feeding but states she will not breast feed unless told safe to do so) - restart Zoloft 50 mg daily per her OBGYN provider - follow up in 4-6 weeks - also provided information/handouts for local mental health resources Assessment & Plan (11/12/2021 3:01 PM PATENT DRAFTER): - chronic, improved but not at goal - has history of anxiety and depression - has been on Xanax, Klonopin int he past, she has tried Cymbalta but lost a lot of weight and was stopped - depression is doing well, anxiety is also improved - she is not on any medications for these at this time, does not desire on in - continue with current therapy, self control/coping mechanisms Assessment & Plan (08/29/2021 11:13 AM CDT): - has history of anxiety and depression - has been on Xanax, Klonopin int he past, she has tried Cymbalta but lost a lot of weight and was stopped - she still has some depression - she is not on any medications for these at this time Fibromyalgia 08/29/2021 Assessment & Plan (03/23/2023 10:46 AM CDT): - chronic, uncontrolled - she has been seen by Rheumatology in past but was discharged - she had another water leak repairer who agreed with initial assessment - she also has hx of anxiety and depression which is not being adequately controlled, off medications - used to be on Gabapentin 300mg TID - which helped her the most but did not like sideeffect Assessment & Plan (07/14/2022 2:08 PM CDT): - chronic, improved but not at goal - she has been seen by Rheumatology in past but was discharged - she had another water leak repairer who agreed with initial assessment - she also has hx of anxiety and depression - currently on Gabapentin 300mg TID - being prescribed by her neurologist - continue current management Assessment & Plan (03/13/2022 2:22 PM CDT): - chronic, improved - she has been seen by Rheumatology in past but was discharged - she had another water leak repairer who agreed with initial assessment - she also has hx of anxiety and depression - currently on Gabapentin 300mg TID - being prescribed by her neurologist - at this time doing well off her medications in - continue staying off medications if doing well Assessment & Plan (11/12/2021 2:58 PM PATENT DRAFTER): - chronic, improved - she has been seen by Rheumatology as well - she is no longer on gabapentin or Cymbalta - she also has hx of anxiety and depression - at this time doing well off her medications in - continue staying off medications if doing well Assessment & Plan (08/29/2021 11:16 AM CDT): - given her complex and long history with multiple evalautions not showign clear fidnigns and diffuse muslce pain, I believe this is likley fibromyalgia - she has been seen by Rheumatology as well - she is now on Gabapentin 300 mg daily which helps with pain but not all the pain - she also has hx of anxiety and depression Vitamin D insufficiency 08/19/2021 Assessment & Plan (11/12/2021 2:57 PM PATENT DRAFTER): - chronic, stable - noted on 08/20 with level of 29 - follows with endocrinology - recommend starting Vitamin D supplementation, start 5000 international units vitamin D daily - recheck Vitamin D level, order already in place Assessment & Plan (08/29/2021 11:15 AM CDT): - noted on 08/20 with level of 29 - follows with endocrinology - recommend starting Vitamin D supplementation, start 5000 international units vitamin D daily 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 Chong - now wants referral to a different Doorperson Or Luggage Porter - states nothing is being taken and worried about her thyroid nodule getting larger - currently not on levothyroixine - most recent TSH was 1.87 on 11/2020 - thyroid function has been checked during her as well No results found for: TSH Most recetn Thyroid US results as shown below US Thyroid 01/2023 IMPRESSION: 1. Grossly stable predominantly solid slightly hypoechoic mid left thyroid nodule measuring up to 1.2 cm. Follow-up ultrasound in 12 months is recommended to assess for stability as clinically indicated. 2. Bilateral submandibular lymph nodes, which are technically nonenlarged and nonspecific. ACR TI-RADS Risk Category: TR 4. Assessment & Plan (03/13/2022 2:20 PM CDT): - chronic, stable - has known tyroid peroxidase antibodies - she has history of thyroid nodules - follows with endocrinology - Dr. Chong - currently not on levothyroixine - most recent TSH was 1.87 on 11/2020 - thyroid function has been checked during her as well Assessment & Plan (08/29/2021 11:14 AM CDT): - has known tyroid peroxidase antibodies - follows with endocrinology - currently not on levothyroixine - most recent TSH was 1.87 on 11/2020 Leukocytosis 12/28/2020 Overview (03/23/2023): Follows with Heme[facility]Onc at [facility] Assessment & Plan (03/17/2022 5:41 AM CDT): - chronic, worse recently - established and being evaluated with hematology/oncology - reviewed outside provider notes - comorbid factors - smoking, current - has testing ordered for BADX BCR/ABL1, RNA-Qual, Diagnostic Tobacco use disorder 12/28/2020 Assessment & Plan (03/23/2023 10:45 AM CDT): Social History Tobacco Use Smoking Status Every Day Packs/day: 1.00 Types: Cigarettes Smokeless Tobacco Never Tobacco Comments pt may need counseling Vaping Use Vaping Status Never Used - chronic, active daily smoker - currently smoking about 1 pk/daily - has tried nicotine patch without success in the past - Discussed about the importance of tobacco smoking cessation Assessment & Plan (07/14/2022 2:03 PM CDT): Social History Tobacco Use Smoking Status Current Every Day Smoker Packs/day: 1.00 Types: Cigarettes Smokeless Tobacco Never Used Tobacco Comment pt may need counseling - chronic, not at goal smoking 1/2 pk to 1 pk/daily - recently tried nicotine patch without success - Discussed about the importance of tobacco smoking cessation, specially during . Assessment & Plan (03/13/2022 2:25 PM CDT): Social History Tobacco Use Smoking Status Current Every Day Smoker Packs/day: 1.00 Types: Cigarettes Smokeless Tobacco Never Used Tobacco Comment pt may need counseling - chronic, not at goal smoking 1/2 pk to 1 pk/daily - desires to quit smoking, currently trying to get nicotine patch approved and has nicotine lozenges - Discussed about the importance of tobacco smoking cessation, specially during . Assessment & Plan (11/12/2021 2:56 PM PATENT DRAFTER): Social History Tobacco Use Smoking Status Current Every Day Smoker Packs/day: 1.00 Types: Cigarettes Smokeless Tobacco Never Used - chronic, not at goal - desires to quit smoking - Discussed about the importance of tobacco smoking cessation, specially during . Assessment & Plan (08/29/2021 11:21 AM CDT): Social History Tobacco Use Smoking Status Current Every Day Smoker Packs/day: 1.00 Types: Cigarettes Smokeless Tobacco Never Used Resolved Problems Problem Noted Date Diagnosed Date Resolved Date Post depression 07/06/202203/23 Suicidal ideation 07/05/2022 07/14/2022 Nodular goiter 05/02/2022 03/23/2023 Overview (05/02/2022): - follows with dr. Chong - euthyroid Delmy's disease 12/03/2021 03/23/20 Overview (08/07/2022): TSH: 1.26, Free T4: 1.0; 01/24 Arthralgia 01/07/2021 03/23/2023 Palpitations 12/28/2020 08/29/2021 Immunizations Immunization Administration Dates Next Due Influenza, Unspecified 02/18/2023(Deferr ed: Patient Refused),08/30/2021(Deferred: Patient Refused),08/30/2021(Deferred: Patient Refused),07/31/2021(Deferred: Patient Refused),08/30/2020(Deferred: Patient Refused),08/30/2020(Deferred: Patient Refused) Tdap 05/29/2022,08/09/2019 Surgical History Surgery Date Site/Laterality Comments ANKLE FRACTURE SURGERY 11/30/2008 - 11/29/2009 CYST REMOVAL 11/30/2017 - 11/29/2018 Left left wrist LIPOMA RESECTION 11/30/2020 - 11/29/2021 Right thigh ANKLE SURGERY 11/30/2006 - 11/29/2007 Left WRIST ARTHROPLASTY 11/30/2017 - 11/29/2018 Left SECTION 05/26/2022 Bilateral BILATERAL TUBAL LIGATION Medical History Medical History Date Comments Thyroid disease Spinal stenosis, lumbar Arthritis Depression Hypertension 2016 DJD (degenerative joint disease) 2020 DDD (degenerative disc disease), cervical 2020 Lipoma 2020 right thigh Ovarian cyst 2020 Leukocytosis Family History Medical History Relation Name Comments Alcohol abuse Brother Mental illness Brother Kidney disease Maternal Grandfather Stroke Maternal Grandfather Cancer Maternal Grandmother Gout Mother Hyperlipidemia Mother Hypertension Mother Plantar fasciitis Mother Cancer Paternal Grandfather colon Diabetes Paternal Grandfather Cancer Paternal Grandmother Relation Name Status Comments Brother Alive Father Alive Maternal Grandfather Maternal Grandmother Mother Alive Paternal Grandfather Paternal Grandmother Social History Tobacco Use Types Packs/Day Years Used Date Smoking Tobacco: Every Day Cigarettes Smokeless Tobacco: Never Tobacco Cessation:Ready to Q uit: Not Asked; Counseling Given: Yes Comments:pt may need counseling Humiliation, Afraid, Rape, and Kick questionnair e Answer Date Recorded Within the last year, have y ou been afraid of your partner or ex-partner? No 07/06/2022 Within the last year, have y ou been humiliated or emotionally abused in other ways by your partner or ex-partner? No Within the last year, have y ou been kicked, hit, slapped, or otherwise physically hurt by your partner or ex-partner? No 07/06/2022 Within the last year, have y ou been raped or forced to have any kind of sexual activity by your partner or ex-partner? No 07/06/2022 Social Connection and Isolat ion Panel [NHANES] Answer Date Recorded In a typical week, how many times do you talk on the phone with family, friends, or neighbors? More than three times a week 07/06/2022 How often do you get togethe r with friends or relatives? More than three times a week 07/06/2022 How often do you attend chur ch or alevism services? Never 07/06/2022 Do you belong to any clubs o r organizations such as anglican groups, unions, fraternal or athletic groups, or school groups? No 07/06/2022 How often do you attend meet ings of the clubs or organizations you belong to? Never 07/06/2022 Are you , , di vorced, , never , or living with a partner? 07/06/2022 AUDIT-C Answer Date Recorded Q1: How often do you have a drink containing alc ohol? 2-4 times a month 08/07/2022 Q2: How many drinks containi ng alcohol do you have on a typical day when you are drinking? 1 or 2 08/07/2022 Q3: How often do you have si x or more drinks on one occasion? Never 08/07/2022 Overall Financial Resource Strain (CARDIA) Answe r Date Recorded How hard is it for you to pa y for the very basics like food, housing, medical care, and heating? Not hard at all 07/06/2022 PHQ-2 Answer Date Recorded PHQ-2 Total Score (If total score is 3 or more points, staff should administer the PHQ-9) 0 03/16/2023 [facility] - Occupational Stress Questionnaire Answer Date Recorded Do you feel stress - tense, restless, nervous, or anxious, or unable to sleep at night because your mind is troubled all the time - these days? Very much 07/06/2022 Exercise Vital Sign Answer Date Recorde d On average, how many days pe r week do you engage in moderate to strenuous exercise (like a brisk walk)? 0 days 07/06/2022 On average, how many minutes do you engage in exercise at this level? 0 min 07/06/2022 Hunger Vital Sign Answer Date Recorded Within the past 12 months, y ou worried that your food would run out before you got the money to buy more. Never true 07/06/20 22 Within the past 12 months, t he food you bought just didn't last and you didn't have money to get more. Never true 07/06/2022 PRAPARE - Transportation Answer Date Re corded In the past 12 months, has l ack of transportation kept you from medical appointments or from getting medications? No 05/2022 In the past 12 months, has l ack of transportation kept you from meetings, work, or from getting things needed for daily living? No 07/06/2022 Housing Stability Vital Sign Answer Jerome e Recorded In the last 12 months, was t here a time when you were not able to pay the mortgage or rent on time? No 07/06/2022 Number of Places Lived in the Last Year Not on f ile 07/06/2022 In the last 12 months, was t here a time when you did not have a steady place to sleep or slept in a long-term (including now)? No 07/06/2022 Personal Safety Answer Date Recorded Getting School Help Needed Not on file 01/26 Comments No Sex and Gender Information Value Date Recorded Sex Assigned at Not on file Legal Sex Female 9:22 AM PATENT DRAFTER Gender Identity Female 10/09/2021 6:35 AM PATENT DRAFTER Sexual Orientation Bisexual 10/09/2021 6: 35 AM PATENT DRAFTER Obstetrics History Para Term AB IAB SAB Ectopic Multiple Livin g Live Births 1 Date Outcome GA Total Labor Labor/2nd/3rd Weight Sex Type Anes PTL Ysabel A1 A5 Name Clin Last Filed Vital Signs Vital Sign Reading Time Taken Comments Blood Pressure 110/72 03/16/2023 3:06 PM CDT Pulse 96 03/16/2023 3:06 PM CDT Temperature 36.4 C (97.6 F) 02/18/2023 10:42 AM CDT Respiratory Rate 18 11/29/2022 5:02 AM PATENT DRAFTER Oxygen Saturation 98% 03/16/2023 3:06 PM CDT Inhaled Oxygen Concentration - - Weight 103 kg (227 lb) 03/16/2023 3:06 PM CDT Height 170.2 cm (5' 7 ) 03/16/2023 3:06 PM CDT Body Mass Index 35.55 03/16/2023 3:06 PM CDT Plan of Treatment Health Maintenance Due Date Last Done Comments Cervical Cancer Screening 1992 Hepatitis C Screening 1992 Varicella Vaccines (1 of 2 - 13+ 2-dose series) 2005 Hepatitis B Screening 2010 Regular Well Visit/Exam 18-64 2010 Pneumococcal vaccine <65 (1 of 2 - PCV) 2011 Depression Screening 03/16/2024 03/16/2023, 02/18/2023, 07/14/2022, Additional history exists Influenza Vaccine (#1) 2024 DTaP/Tdap/Td Vaccine (3 - Td or Tdap) 05/29/2032 05/29/2022, 08/09/2019 HPV Vaccines Aged Out No longer eligi ble based on patient's age to complete this topic Insurance [facility] Advance Directives For more information, please contact: [phone] * Full Code (Latest Code Status on File) Date Activated Date Inactivated Comments 07/05/2022 4:31 PM 07/07/2022 6:20 PM Care Teams Parts Professional Relationship Specialty Start Date End Date Juan Pritchett MD PCP - General Family Medicine 08/16/21 Makenzie Choi, LEGAL AIDE [address] [place] [address] Nurse Practitioner Nurse Practitioner 08/16/21 Donnie Barcenas MD [address] [place] [address] Referring Physician Rheumatology 08/16/21 Maryellen Chong MD [address] [place] [address] Referring Physician General Surgery 08/16/21 Mateusz Reed MD [address] [place] [address] Consulting Physician Neurosurgery 08/16/21 Gonzalo Houston MD [address] [address] Medical Oncologist/Hematologis t Hematology and Oncology 12/29/22 Terence Wallis MD [address] [place], [place] [id number] Referring Physician Obstetrics and Gynecology 03/23/23
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
--- OUTSIDE RECORDS SUMMARY | 2025-02-16 13:51 | XMS_ITS | Data Portability ---
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 [address] 04/16/2022 14:00:55 04/17/2022 09:51:19 Chronic hypertension complicating AND/OR reason for care during 16127692 O16.9 Z3A.32 [id number] Ling Veloz CNM [place] [address],[place] [address] 04/25/2022 13:54:01 04/25/2022 15:59:04 Routine care 164430173 Z34.92 [id number] Larissa Johnson [place] [address],[place] [address] 04/25/2022 13:55:23 04/25/2022 14:48:22 Chronic hypertension complicating AND/OR reason for care during 91125342 O16.9 Z3A.32 [id number] Annia Carvajal [place] [address],[place] [address] 05/01/2022 16:02:23 05/02/2022 17:00:09 Routine care 742288369 Z34.93 [id number] Ele Schwab [place] [address],[place] [address] 05/07/2022 12:00:59 05/07/2022 13:16:26 Chronic hypertension complicating AND/OR reason for care during 51379836 O16.9 Z3A.35 [id number] Mony Hou [place] [address],[place] [address] 05/07/2022 12:01:20 05/07/2022 14:18:38 Benign essential hypertension complicating AND/OR reason for care during 73074684 O10.019 [id number] Ling Veloz [facility] [address],[place] [address] 05/07/2022 12:01:36 05/07/2022 13:45:20 Routine care 150568102 Z34.92 [id number] Ele Schwab [place] [address],[place] [address] 05/14/2022 13:47:03 05/14/2022 14:31:48 Chronic hypertension complicating AND/OR reason for care during 10298157 O16.9 Z3A.36 [id number] Shani Sexton [facility] [address],[place] [address] 05/14/2022 13:47:30 05/14/2022 16:48:52 Benign essential hypertension complicating , childbirth and the puerperium - not delivered 837232403 O10.019 [id number] Ling Veloz [facility] [address],[place] [address] 05/14/2022 13:48:56 05/14/2022 16:07:43 Routine care 284107752 Z34.92 [id number] Shani Sexton [facility] [address],[place] [address] 05/21/2022 16:53:30 05/22/2022 14:44:35 Benign essential hypertension complicating , childbirth and the puerperium - not delivered 597626808 O10.019 [id number] Terence Wallis MD [place] [address],[place] [address] 05/21/2022 16:53:45 05/22/2022 14:56:51 Routine care 440869705 Z34.92 [id number] Larissa Johnson [place] [address],[place] [address] 05/23/2022 12:31:17 05/23/2022 13:46:24 Benign essential hypertension complicating AND/OR reason for care during 29760951 O10.019 [id number] [facility] [address],[place] [address] 06/04/2022 17:11:20 06/11/2022 17:03:10 Postoperative visit 073469880 Z09 [id number] [facility] [address],[place] [address] 06/11/2022 15:27:00 06/11/2022 16:03:35 Migraine 73898967 G43.909 take 1-2 call if does not resolve Infection of skin 829471 000 L08.9 ampicillin per culture, f/u 2 weeks precaution s reviewed [id number] [facility] [address],[place] [address] 06/25/2022 17:17:54 06/25/2022 18:54:38 Pain in pelvis 07884470 R10.2 [id number] Ele Schwab [place] [address],[place] [address] 06/25/2022 18:20:59 06/25/2022 18:47:05 Pain in pelvis 93873651 R10.2 [id number] Terence Wallis MD [place] [address],[place] [address] 07/04/2022 12:09:49 07/04/2022 13:21:07 Mixed anxiety and depressive disorder 552049934 F41.8 This patient is a 32-year-ol d female who presents for care. She has depression and anxiety. We talked about getting a therapist. We talked about medication . We agreed to treat with Zoloft. She was given precaution s about side effects Zoloft. She had a tubal. She is still bleeding. She is breastfeed ing. Her baby is doing well. She has had intercours e. She will follow-up in 4 weeks for impression Postoperative care 37166 9007 Z48.89 [id number] Terence Wallis MD [place] [address],[place] [address] 07/18/2022 11:40:22 07/18/2022 12:35:14 depression 59125897 F53.0 this patient is a 32-year-ol d female presents for follow-up on depression . She is doing well. Her mood is much improved. She notices appreciabl e difference . She has a little bit of shakiness or tremor -like feeling. Technicall y not tremor. given reassuranc e. Overall very satisfied, she will return in 3 months. Her baby is doing well. [id number] Terence Wallis MD [place] [address],[place] [address] 08/01/2022 13:58:06 08/01/2022 14:49:50 depression 69578282 F53.0 this patient is a 32-year-ol d female who presents for follow-up on depression , depression . Patient is bipolar and on Abilify. Her mood is excellent. She is doing very well. No suicidal thoughts or ideation. Minimal agitation and no crying or sadness. She is sleeping well. We started her on Zoloft. 50 mg. I requested that she see her primary care doctor who put her on Abilify. This is a little complex from my level of knowledge in the psychiatri c medicine area. She return to her primary care doctor for follow-up on mood. She is to contact us for any Worsening of mood. [id number] Terence Wallis MD [place] [address],[facility] [place] [address] 04/06/2023 13:59:17 04/06/2023 14:52:13 Gynecologic examination 97935339 Z01.419 Annual gynecologi terese exam performed. Patient will come back in a year unless there are new symptoms. Suggest Calcium with Vitamin D if not eating in diet. Patient advised to get annual flu shot. Recommend yearly physicals and preform monthly breast exams. Genetic testing is available for patients with family history of cancer. Engage in safe sexual practices, use condoms. Encouraged to have daily exercise. Avoid tobacco and illicit drugs, moderation of alcohol. If BMI greater than 25 dietary consult advised. If you have any questions please call or email Tammie gunn - ordered Pap - today Hidradenit is suppurativa 29697253 L73.2 Pain in pelvis 77070641 R10.2 week ultrasound intake this up another appointmen t. [id number] Terence Wallis MD [place] [address] [address] 01/26/2024 09:26:57 01/26/2024 10:39:49 Breast infection 080408002 N61.0 this patient is a 34-year-ol d female presents for breast infection. There has an area in the central nipple that has had multiple infectious episodes. puss has been expressed from the nipple multiple times. It is healed and become reinfected . Today the exam was normal. It appears to be a normal inverted nipple. We will treat with antibiotic s. Will send to breast specialist if this is recurrent after antibiotic treatment. We spent 20 minutes face-to-fa ce. More than 50% was counseling . Breasts were examined. Health Concerns Section Related Observation LastModified by Organization Detai ls LastModified Time None Recorded Concern Status LastModified by Organization Details LastModified Time None Recorded Advance Directives Directive N: Payers Encounter Date Sequence Insurance Name Policy Number Policy Monterroso Covered Member ID Monterroso Member ID Guarantor Name 07/04/2022 1 [facility] ON OR AFTER 05/30/21 (MEDICAID REPLACEMENT - HMO) Gurjit Charles [id number] Gurjit Charles 07/18/2022 1 [facility] ON OR AFTER 05/30/21 (MEDICAID REPLACEMENT - HMO) Gurjit Charles [id number] Gurjit Charles 08/01/2022 1 [facility] ON OR AFTER 05/30/21 (MEDICAID REPLACEMENT - HMO) Gurjit Charles [id number] Gurjit Charles 04/06/2023 1 [facility] ON OR AFTER 05/30/21 (MEDICAID REPLACEMENT - HMO) Gurjit Charles [id number] Gurjit Charles 01/26/2024 1 [employer] [id number] Gurjit Charles [id number] Gurjit Charles Notes Date Note Type Note Provider Name and Address Organization Details Recorded Time 07/04/2022 text/html VisitReported bypatient.Notes:This patient is a 32-year-old female who presents for care. She has depression and anxiety. We talked about getting a therapist. We talked about medication. We agreed to treat with Zoloft. She was given precautions about side effects Zoloft. She had a tubal. She is still bleeding. She is . Her baby is doing well. She has had intercourse. She will follow-up in 4 weeks for impression Terence Wallis MD [address], [place], [address], [facility] 07/04/2022 13:20:27 07/18/2022 text/html this patient is a 32-year-old female presents for follow-up on depression. She is doing well. Her mood is much improved. She notices appreciable difference. She has a little bit of shakiness or tremor -like feeling. Technically not tremor. given reassurance. Overall very satisfied, she will return in 3 months. Her baby is doing well. Terence Wallis MD [address], [place], [address], [facility] 07/18/2022 12:28:18 08/01/2022 text/html this patient is a 32-year-old female who presents for follow-up on depression, depression. Patient is bipolar and on Abilify. Her mood is excellent. She is doing very well. No suicidal thoughts or ideation. Minimal agitation and no crying or sadness. She is sleeping well. We started her on Zoloft. 50 mg. I requested that she see her primary care doctor who put her on Abilify. This is a little complex from my level of knowledge in the psychiatric medicine area. She return to her primary care doctor for follow-up on mood. She is to contact us for any Worsening of mood. Terence aWllis MD [address], [place], [address], [facility] 08/01/2022 14:29:40 04/06/2023 text/html Annual GYNReport ed bypatient.History:no gynecologic complaints Menstrual cycle:Normal menses Urinary symptoms:No hematuria; No incontinence Vulva:No genital lesion Vagina:Normal vaginal discharge Breast:No breast pain; No breast lump Current Contraception:Satisf ied with current contraception; Oral contraceptives Sexual complaints:No sexual complaints; No pain during intercourse Menopausal Symptoms:No menopausal symptoms; Normal vaginal lubrication Psychological symptoms:No depression; No anxiety Preventive measures:Encourage self breast examination; Encourage regular exercise Terence Wallis MD [address], [place], [address], [facility] 04/06/2023 14:49:21 01/26/2024 text/html this patient is a 34-year-old female presents for breast infection. There has an area in the central nipple that has had multiple infectious episodes. puss has been expressed from the nipple multiple times. It is healed and become reinfected. Today the exam was normal. It appears to be a normal inverted nipple. We will treat with antibiotics. Will send to breast specialist if this is recurrent after antibiotic treatment. We spent 20 minutes [id number]. More than 50% was counseling. Breasts were examined. Terence Wallis MD [address], [place], [address], [facility] 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 MASTER CONTROL SUPERVISOR on 02/12, 03/12, 04/09 MASTER CONTROL SUPERVISOR, 04/25 u/s only, 05/21 u/s and NPM sent labs elevated WBC to pcp Dr Pritchett - pcp sending pt to Hepatology & pt to follow up with rheumatology review elevated CBC per [facility] Problem Name Start Date End Date Resolution Snomed Code Not e Chronic pain 67148871 rheumat ology consult, stop diclofenac, Bilateral Feet - compression stockings and supportive shoes Obesity 145150147 36 wk ante testing with BPP and growth u/s; NEEDS NUTRITION COUNSELING PER MF WE ARE TO REFER! RhD negative 151376402 Rhogam 03/13 Finding of growth 03/24/2022 696468404 Level II on 04/04 r/t 3.7% growth on 03/24 Liver function tests outside reference range 067830962 [facility] Labs Group B Streptococcus carrier [id number] abx labor Fibromyalgia MEDICATION 393807705 MFM re c gabapentin 300mg TID, stopped diclofenac, declines PT referral at this time, pain management referral Tobacco user [id number] 1ppd, e ncouraged cessation, discussed risks Benign essential hypertension complicating , childbirth and the puerperium - not delivered baseline PIH l abs & 24 hour urine (01/24 PCR WNL, AST 20, ALT 32(H)), ASA 162mg no anticoag per [facility], testing BPP 32wks 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 Chong, thyroid u/s, 01/24 - stable, TSH WNL, serial growth u/s, ASA, thyroid fxn qtrimeter needs in 3rd tri Mixed anxiety and depressive disorder 300567169 no meds currently Ed Calculation Initial Ed Date Initial Exam Date Initial Exam Provider Initial Ultrasound Date Last Menstrual Period Date Ultra Sound Weeks Gestation 06/09/2022 11/26/2021 10/28/2021 09/02/2021 7 Eighteen To Twenty Week Ed Update Ultra Sound Date Fundal Height At Umbil Quickening Date Ultra Sound Latest Weeks Gestation Final Ed Confirmed By Final Ed Confirmed Date Final Ed Date Ultra Sound Latest Days Gestation 0 [email or web address] 11/26/2021 06/09/20 22 0 Pre-pop Flowsheet Flowsheet Date 11/26/2021 Ramachandran Score Blood Edema Fundus Height Fundus Units Glucose Ketones Leukocytes Nitrite Labor Signs Protein Cervic Dilation Cervic Effacement Cervic Station Type Weight in lbs Pre/Post Dialysis Refused BP Diastolic BP Location Tested BP Systolic BP Type Fetus Heart Rate Present Fetus Movement Comments Flowsheet Date 11/26/2021 Ramachandran Score Blood Edema Fundus Height Fundus Units Glucose Ketones Leukocytes Nitrite Labor Signs Protein Cervic Dilation Cervic Effacement Cervic Station neg none none trace Type Weight in lbs Pre/Post Dialysis Refused Weight 228.941328991333 BP Diastolic BP Location Tested BP Systolic BP Type 78 117 Fetus Heart Rate Present A 160 Fetus Movement A No Comments Gurjit is a 31yo G1 at 12.1 for care. complicated by history of chronic HTN off and on in the past, no meds, fibromyalgia, for which she stopped all meds, including cymbalta which she was instructed to continue, Delmy's, for which she sees endo and had labs done 2 weeks ago and has thyroid US in Dec, anxiety and depression, and tobacco use. Will do baseline PIH labs, already had NIPT, will start ASA, discussed testing and growth US. Encouraged to restart cymbalta but pt declines. Discussed and encouraged flu and COVID vaccines. Of note, pt is in polyamorous relationship with her , also a preg pt of ours, and the FOB of their babies.Discussed risks of tobacco use in and encouraged cessation. Has MFM appt 12/04. Flowsheet Date 12/24/2021 Ramachandran Score Blood Edema Fundus Height Fundus Units Glucose Ketones Leukocytes Nitrite Labor Signs Protein Cervic Dilation Cervic Effacement Cervic Station Type Weight in lbs Pre/Post Dialysis Refused BP Diastolic BP Location Tested BP Systolic BP Type Fetus Heart Rate Present Fetus Movement Comments Flowsheet Date 01/06/2022 Ramachandran Score Blood Edema Fundus Height Fundus Units Glucose Ketones Leukocytes Nitrite Labor Signs Protein Cervic Dilation Cervic Effacement Cervic Station neg trace trace Type Weight in lbs Pre/Post Dialysis Refused Weight 233.674235721237 BP Diastolic BP Location Tested BP Systolic BP Type 75 117 Fetus Heart Rate Present A 152 Fetus Movement A Yes Comments patient states that having h eadaches, pelvic pain, heart palpitations, feet pain and swelling. AFP today, plan halter monitor for palpitations, MFM restarted gabapentin, occ flutters, all questions answered. schedule anatomy f/u after that in 4 weeks Flowsheet Date 01/30/2022 Ramachandran Score Blood Edema Fundus Height Fundus Units Glucose Ketones Leukocytes Nitrite Labor Signs Protein Cervic Dilation Cervic Effacement Cervic Station 21 Type Weight in lbs Pre/Post Dialysis Refused Weight 242.024094360882 BP Diastolic BP Location Tested BP Systolic BP Type 76 R arm 127 sitting Fetus Heart Rate Present A 155 Fetus Movement A Yes Comments patient tested negative for Factor 5 Leiden, had some mildly elevated enzymes And WBC on recent MFM labs, to be repeated shortly, patient has MFM follow-up on the . Chronic foot pain, fibromyalgia, thyroid concern, anxiety all appear to be stable. to follow-up here in 3 weeks. Flowsheet Date 02/20/2022 Ramachandran Score Blood Edema Fundus Height Fundus Units Glucose Ketones Leukocytes Nitrite Labor Signs Protein Cervic Dilation Cervic Effacement Cervic Station Type Weight in lbs Pre/Post Dialysis Refused BP Diastolic BP Location Tested BP Systolic BP Type Fetus Heart Rate Present Fetus Movement Comments Flowsheet Date 02/20/2022 Ramachandran Score Blood Edema Fundus Height Fundus Units Glucose Ketones Leukocytes Nitrite Labor Signs Protein Cervic Dilation Cervic Effacement Cervic Station 24 Type Weight in lbs Pre/Post Dialysis Refused Weight 239.950669401177 BP Diastolic BP Location Tested BP Systolic BP Type 77 L arm 120 sitting Fetus Heart Rate Present A 145 Fetus Movement Comments Discussed growth concerns , discussed flank pain -episode of severe right-sided flank pain. , patient has some plantar fasciitis that she is being observed for and treated. Is seeing cafeteria or lunchroom checker today. Has fibromyalgia. Blood pressure stable Flowsheet Date 03/24/2022 Ramachandran Score Blood Edema Fundus Height Fundus Units Glucose Ketones Leukocytes Nitrite Labor Signs Protein Cervic Dilation Cervic Effacement Cervic Station Type Weight in lbs Pre/Post Dialysis Refused BP Diastolic BP Location Tested BP Systolic BP Type Fetus Heart Rate Present Fetus Movement Comments Flowsheet Date 03/24/2022 Ramachandran Score Blood Edema Fundus Height Fundus Units Glucose Ketones Leukocytes Nitrite Labor Signs Protein Cervic Dilation Cervic Effacement Cervic Station neg none none trace Type Weight in lbs Pre/Post Dialysis Refused Weight 243.566185615630 BP Diastolic BP Location Tested BP Systolic BP Type 72 108 Fetus Heart Rate Present Fetus Movement A Yes Comments Growth in the 4th percentile today which is a decrease. Doppler normal for ga. Asked ob staff to call MFM to get updated recommendations d/t growth in the 4th percentile. Pt thinks feels the sga is related to use of diclofenac. States at her first visit with us she had just ran out and when she went to [facility] for her first visit they did not tell her she couldn't restart so she refilled and restarted. Last [facility] visit she was told to discontinue d/t risks in .April 09 [facility] visit and Dr Houston (cancer doctor for increased wbc). F/U with Dr Chong on April 23. TSH drawn 2 weeks ago. Flowsheet Date 04/08/2022 Ramachandran Score Blood Edema Fundus Height Fundus Units Glucose Ketones Leukocytes Nitrite Labor Signs Protein Cervic Dilation Cervic Effacement Cervic Station neg trace 31 none trace Type Weight in lbs Pre/Post Dialysis Refused Weight 250.792871607352 BP Diastolic BP Location Tested BP Systolic BP Type 76 117 Fetus Heart Rate Present A 140 Fetus Movement A Yes Comments Discomfort with urination. P t does have 2+ leuks. SP tenderness. Will treat with macrobid. Will schedule testing tomorrow.[facility] visit with ultrasound scheduled on 04-25. Flowsheet Date 04/16/2022 Ramachandran Score Blood Edema Fundus Height Fundus Units Glucose Ketones Leukocytes Nitrite Labor Signs Protein Cervic Dilation Cervic Effacement Cervic Station Type Weight in lbs Pre/Post Dialysis Refused Weight 248.218231835277 BP Diastolic BP Location Tested BP Systolic BP Type 80 127 Fetus Heart Rate Present Fetus Movement Comments Flowsheet Date 04/16/2022 Ramachandran Score Blood Edema Fundus Height Fundus Units Glucose Ketones Leukocytes Nitrite Labor Signs Protein Cervic Dilation Cervic Effacement Cervic Station Type Weight in lbs Pre/Post Dialysis Refused BP Diastolic BP Location Tested BP Systolic BP Type Fetus Heart Rate Present Fetus Movement Comments Flowsheet Date 04/25/2022 Ramachandran Score Blood Edema Fundus Height Fundus Units Glucose Ketones Leukocytes Nitrite Labor Signs Protein Cervic Dilation Cervic Effacement Cervic Station neg none none trace Type Weight in lbs Pre/Post Dialysis Refused Weight 249.898142276346 BP Diastolic BP Location Tested BP Systolic BP Type 76 121 Fetus Heart Rate Present Fetus Movement A Yes Comments patient is having acid reflu x, nausea and vomiting. rec pepcid, precautions reviewed, discussed possible MIL around 38 weeks due to CHTN, baby efw by m 7% continue testing discussed possible tubal ligation, pt aware that tubes would be removed and it is permanent, consent signed Flowsheet Date 04/25/2022 Ramachandran Score Blood Edema Fundus Height Fundus Units Glucose Ketones Leukocytes Nitrite Labor Signs Protein Cervic Dilation Cervic Effacement Cervic Station Type Weight in lbs Pre/Post Dialysis Refused BP Diastolic BP Location Tested BP Systolic BP Type Fetus Heart Rate Present Fetus Movement Comments Flowsheet Date 05/01/2022 Ramachandran Score Blood Edema Fundus Height Fundus Units Glucose Ketones Leukocytes Nitrite Labor Signs Protein Cervic Dilation Cervic Effacement Cervic Station neg trace none trace Type Weight in lbs Pre/Post Dialysis Refused Weight 249.268959372668 BP Diastolic BP Location Tested BP Systolic BP Type 94 159 80 130 Fetus Heart Rate Present Fetus Movement A Yes Comments Initial bp elevated. Repeat improved. Denies h/a, v/d or e/p. Pt sent to L&D for evaluation. PIH precautions.Occasional cramping. 1-2+ edema in lower ext.MFM on 04-25 and next one scheduled on 05-14. Last growth at 04-25 visit was in 6th percentile.Dr Houston r/s to 05-12Dr Castillo on 04-23MFM is the one who ordered tsh and t4 but only the t4 was drawn. Will have ob nurse contact [facility] to see if they want the t4. BW left a message with [facility]. Flowsheet Date 05/01/2022 Ramachandran Score Blood Edema Fundus Height Fundus Units Glucose Ketones Leukocytes Nitrite Labor Signs Protein Cervic Dilation Cervic Effacement Cervic Station Type Weight in lbs Pre/Post Dialysis Refused BP Diastolic BP Location Tested BP Systolic BP Type Fetus Heart Rate Present Fetus Movement Comments Flowsheet Date 05/01/2022 Ramachandran Score Blood Edema Fundus Height Fundus Units Glucose Ketones Leukocytes Nitrite Labor Signs Protein Cervic Dilation Cervic Effacement Cervic Station Type Weight in lbs Pre/Post Dialysis Refused BP Diastolic BP Location Tested BP Systolic BP Type Fetus Heart Rate Present Fetus Movement Comments Flowsheet Date 05/07/2022 Ramachandran Score Blood Edema Fundus Height Fundus Units Glucose Ketones Leukocytes Nitrite Labor Signs Protein Cervic Dilation Cervic Effacement Cervic Station Type Weight in lbs Pre/Post Dialysis Refused BP Diastolic BP Location Tested BP Systolic BP Type Fetus Heart Rate Present Fetus Movement Comments Flowsheet Date 05/07/2022 Ramachandran Score Blood Edema Fundus Height Fundus Units Glucose Ketones Leukocytes Nitrite Labor Signs Protein Cervic Dilation Cervic Effacement Cervic Station Type Weight in lbs Pre/Post Dialysis Refused BP Diastolic BP Location Tested BP Systolic BP Type Fetus Heart Rate Present Fetus Movement Comments Flowsheet Date 05/07/2022 Ramachandran Score Blood Edema Fundus Height Fundus Units Glucose Ketones Leukocytes Nitrite Labor Signs Protein Cervic Dilation Cervic Effacement Cervic Station neg trace none trace Type Weight in lbs Pre/Post Dialysis Refused Weight 248.476454865574 BP Diastolic BP Location Tested BP Systolic BP Type 81 139 Fetus Heart Rate Present Fetus Movement A Yes Comments patient is having some pain and swelling. bpp 07/07 NST R, doing well discussed IOL at 38 weeks, f/u one week precautions reviewed also plan gbs next week Flowsheet Date 05/14/2022 Ramachandran Score Blood Edema Fundus Height Fundus Units Glucose Ketones Leukocytes Nitrite Labor Signs Protein Cervic Dilation Cervic Effacement Cervic Station Type Weight in lbs Pre/Post Dialysis Refused BP Diastolic BP Location Tested BP Systolic BP Type Fetus Heart Rate Present Fetus Movement Comments Flowsheet Date 05/14/2022 Ramachandran Score Blood Edema Fundus Height Fundus Units Glucose Ketones Leukocytes Nitrite Labor Signs Protein Cervic Dilation Cervic Effacement Cervic Station Type Weight in lbs Pre/Post Dialysis Refused BP Diastolic BP Location Tested BP Systolic BP Type Fetus Heart Rate Present Fetus Movement Comments Flowsheet Date 05/14/2022 Ramachandran Score Blood Edema Fundus Height Fundus Units Glucose Ketones Leukocytes Nitrite Labor Signs Protein Cervic Dilation Cervic Effacement Cervic Station neg trace none trace 1cm 10% -3 Type Weight in lbs Pre/Post Dialysis Refused Weight 251.02371855169 BP Diastolic BP Location Tested BP Systolic BP Type 79 112 Fetus Heart Rate Present Fetus Movement A Decreased Comments patient states that having c ontractions, swelling and decrease movement. nst and bpp wnl. discussed movements, pt desires elective primary with tubal ligation, will speak with DR. Wallis, reviewed risks and precautions gbs done today Flowsheet Date 05/21/2022 Ramachandran Score Blood Edema Fundus Height Fundus Units Glucose Ketones Leukocytes Nitrite Labor Signs Protein Cervic Dilation Cervic Effacement Cervic Station Type Weight in lbs Pre/Post Dialysis Refused BP Diastolic BP Location Tested BP Systolic BP Type Fetus Heart Rate Present Fetus Movement Comments Flowsheet Date 05/21/2022 Ramachandran Score Blood Edema Fundus Height Fundus Units Glucose Ketones Leukocytes Nitrite Labor Signs Protein Cervic Dilation Cervic Effacement Cervic Station Type Weight in lbs Pre/Post Dialysis Refused Weight 245.229947800788 BP Diastolic BP Location Tested BP Systolic BP Type 85 R arm 126 sitting Fetus Heart Rate Present A 134 Fetus Movement Comments said to be chronic hypertens wilber but MFM evaluation today. They recommend delivery at 38 weeks. We discussed that. Patient wants delivery. We have scheduled a for Thursday. Flowsheet Date 05/23/2022 Ramachandran Score Blood Edema Fundus Height Fundus Units Glucose Ketones Leukocytes Nitrite Labor Signs Protein Cervic Dilation Cervic Effacement Cervic Station Type Weight in lbs Pre/Post Dialysis Refused BP Diastolic BP Location Tested BP Systolic BP Type Fetus Heart Rate Present Fetus Movement Comments Flowsheet Date 05/26/2022 Ramachandran Score Blood Edema Fundus Height Fundus Units Glucose Ketones Leukocytes Nitrite Labor Signs Protein Cervic Dilation Cervic Effacement Cervic Station Type Weight in lbs Pre/Post Dialysis Refused BP Diastolic BP Location Tested BP Systolic BP Type Fetus Heart Rate Present Fetus Movement Comments Flowsheet Date 06/04/2022 Ramachandran Score Blood Edema Fundus Height Fundus Units Glucose Ketones Leukocytes Nitrite Labor Signs Protein Cervic Dilation Cervic Effacement Cervic Station Type Weight in lbs Pre/Post Dialysis Refused Weight 232.72516715181 BP Diastolic BP Location Tested BP Systolic BP Type 67 114 Fetus Heart Rate Present Fetus Movement Comments Flowsheet Date 06/11/2022 Ramachandran Score Blood Edema Fundus Height Fundus Units Glucose Ketones Leukocytes Nitrite Labor Signs Protein Cervic Dilation Cervic Effacement Cervic Station Type Weight in lbs Pre/Post Dialysis Refused Weight 230.448236521493 BP Diastolic BP Location Tested BP Systolic BP Type 89 135 Fetus Heart Rate Present Fetus Movement Comments Flowsheet Date 06/25/2022 Ramachandran Score Blood Edema Fundus Height Fundus Units Glucose Ketones Leukocytes Nitrite Labor Signs Protein Cervic Dilation Cervic Effacement Cervic Station Type Weight in lbs Pre/Post Dialysis Refused Weight 224.744851123348 BP Diastolic BP Location Tested BP Systolic BP Type 80 116 Fetus Heart Rate Present Fetus Movement Comments Flowsheet Date 06/25/2022 Ramachandran Score Blood Edema Fundus Height Fundus Units Glucose Ketones Leukocytes Nitrite Labor Signs Protein Cervic Dilation Cervic Effacement Cervic Station Type Weight in lbs Pre/Post Dialysis Refused BP Diastolic BP Location Tested BP Systolic BP Type Fetus Heart Rate Present Fetus Movement Comments Menstrual History Last Menstrual Date Menses Monthly On Bcp Conception Prior Menses Frequency Hcg Plus Date Menarche Onset Age 1009/02/2021 Genetic Screening And Infection History Question Response Note Mental Retardation/Autism false Patient's Age Will Be 35 Years Or Older At Estim ated Date of Delivery false Thalassemia (Greek, Austrian, Mediterranean, Or Background): MCV < 80 false Neural Tube Defect (Meningomyelocele, Spina Bifi da, Or Anencephaly) false Congenital Heart Defect false Down Syndrome false Bharath-Sachs (eg, Gnosticism, Cajun, Setswana-Loami) f alse Jerson Disease false Sickle Cell Disease Or Trait () false Hemophilia Or Other Blood Disorders false Muscular Dystrophy false Cystic Fibrosis false Leatha's Chorea false Intellectual Disability/Autism false If Yes, Was Person Tested For Fragile X? false Other Inherited Genetic Or Chromosomal Disorder false Maternal Metabolic Disorder (eg, Type 1 Diabetes , PKU) false Patient Or Baby's Father Had A Child With Defects Not Listed Above false Recurrent Loss, Or A Stillbirth false Medications (including Suppl ements, Vitamins, Herbs, OTC Drugs), Illicit/Recreational Drugs, Alcohol false If Yes, Agent(s) And Strength/Dosage false Any Other Genetic History false Live With Someone With TB Or Exposed To TB false Patient Or Partner Has History Of Genital Herpes false Rash Or Viral Illness Since Last Menstrual Perio d false History Of STD, Gonorrhea, Chlamydia, HPV, Syphi lis false Other Infection History false History of HIV false History of Hepatitis false Prior GBS-infected child false Hemoglobinopathy Or Carrier false Other Structural Defect false Recent Travel History Outside of Country false Delivery Information Delivery Date Delivery Type Labor Anesthesia Weeks Gestation Incision Type Labor Labor Length Hrs Delivered By Post Complications Tubal Sterilization Discharge Date Comments 2 None [facility] 38 Low Transvers e false Terence Wallis MD true Maternal obesity, CHTN, Fibromyal bj, GBS+ Discharge Information Feeding Method Contraceptive Method Maternal HG B and HCT Levels Breast
--- OUTSIDE RECORDS SUMMARY | 2025-02-16 13:51 | XMS_ITS | Data Portability ---
Author Organization [facility] Address [address] [place] [address] Care Team Providers Care Pigment Pumper Name Role Phone NICK ALBRIGHT Primary Care Provider [phone] Assessment No assessment recorded. Plan of Treatment Reminders Order Date Submit Date Provider Last Modified By Organization Details Last Modified Time Details Appointments ANY 15 2024 03:00P M Nick Albright PA-C Not available Not available Not available Lab WILBERTO + rf (antinucl ear antibodie s + rheumatoi d factor), quantitat wilber, serum 2024 025 [facility], [address] [place] [address], [facility] [address], [place], [address], 02/10/2025 16:34:35 CBC 2024 025 [facility], [address] [facility], [facility] [address], [place], [address], 02/10/2025 16:34:35 CMP, serum or plasma 2024 025 [facility], [address] [place] [address], [facility] [address], [place], [address], 02/10/2025 16:34:35 lipid panel, serum 2024 025 [facility], [address] [facility], [facility] [address], [place], [address], 02/10/2025 16:34:34 Referral None recorded. Procedures None recorded. Surgeries None recorded. Imaging XR, shoulder 2024 025 [facility], [address] [facility] [place], [address], 02/10/2025 16:35:52 Medication Orders celecoxib 200 mg capsule 2024 025 [facility], [address] [place] [address], [address], 02/10/2025 16:34:34 Patient TargetsNo targets recorded. Patient Instructions Encounter Date Encounter Id Patient Instructions Last Modified By Organization Details Last Modified Time 02/10/2025 [id number] A healthy lifestyle: care instructions carlo Not available 02/10/2025 16:34:28 Reason for Referral None Reported. Problems No Known Problems Procedures Surgical History Date Name Laterality Status Provider Name and Address Organization Details Recorded Time section completed Olga Lidia Byrd MA [facility] 02/10/2025 16:10:21 Imaging Results None recorded. Procedure Notes None recorded. Medical Equipment None Reported. Allergies No known drug allergies Medications Name Sig Start Date Stop Date Status Note LastModified by Organization Details LastModified Time celecoxib 200 mg capsule Take 1 capsule every day by oral route for 90 days. active Not Available Not Available Not Avai lable Vitals Date Recorded Body weight Body mass index (BMI) Body height Oxygen saturation Oxygen saturation in Arterial blood by Pulse oximetry Heart rate Respiratory rate Systolic blood pressure Diastolic blood pressure Provider Name and Address Organization Details Last Updated DateTime 969371. 95 g 38.2 kg/m2 167.64 cm 97 % 97 % 90 /min 16 /min 125 mm[Hg] 85 mm[Hg] Olga Lidia Byrd MA [facility] 16:12:31 Social History Question Answer Notes LastModified by Organizat ion Details LastModified Time Tobacco Smoking Status Never Smoker Olga Lidia Byrd MA null, [facility] 02/10/2025 16:08:31 What Is Your Level Of Alcohol Consumption? None Information not available 02/10/2025 Are You Blind Or Do You Have Difficulty Seeing? No Information n ot available 02/10/2025 What Is Your Level Of Caffeine Consumption? Heavy Information not available 02/10/2025 In The 14 Days Before Symptom Onset, Have You Had Close Contact With A Laboratory-confirm ed COVID-19 While That Case Was Ill? No Information n ot available 02/10/2025 In The 14 Days Before Symptom Onset, Have You Had Close Contact With A Person Who Is Under Investigation For COVID-19 While That Person Was Ill? No Information not available 02/10/2025 Have You Been To An Area Known To Be High Risk For COVID-19? No Information not available 02/10/2025 Are You Currently Employed? Yes Information not available 02/10/2025 Are You Deaf Or Do You Have Serious Difficulty Hearing? No Information not available 02/10/2025 What Type Of Diet Are You Following? REGULAR Information n ot available 02/10/2025 What Is Your Occupation? [employer] Information not available 02/10/2025 Are There Any Guns Present In Your Home? No Information not available 02/10/2025 What Was The Date Of Your Most Recent Tobacco Screening? 02/10/2025 Information not available 02/10/2025 Do You Use Your Seat Belt Or Car Seat Routinely? Yes Information not available 02/10/2025 Do You Have Smoke And Carbon Monoxide Detectors In Your Home? Yes Information not available 02/10/2025 Are You Passively Exposed To Smoke? Yes Information no t available 02/10/2025 Do You Feel Stressed (tense, Restless, Nervous, Or Anxious, Or Unable To Sleep At Night)? [id number] Information not available 02/10/2025 Do You Use Any Illicit Or Recreational Drugs? No Information not available 02/10/2025 Do You Use Sunscreen Routinely? Yes Information not available 02/10/2025 Do You Or Have You Ever Used Any Other Forms Of Tobacco Or Nicotine? No Information not available 02/10/2025 Sex: Female Functional Status Question Answer Note LastModified by Organization D etails LastModified Time Are you able to care for yourself? Yes Information n ot available 02/10/2025 What is your exercise level? None Information not available 02/10/2025 Mental Status None recorded. Family History Relationship Description Onset Age of this Age Resolved Age Notes LastModified by Organization Details LastModified Time Mother Hypertensive disorder [email or web address] Not available 02/10 16:07:35 Mother Malignant tumor of breast [email or web address] Not available 02/10 16:08:02 Paternal Grandfather Diabetes mellitus [email or web address] Not available 02/10 16:07:47 Paternal Grandfather Malignant tumor of colon [email or web address] Not available 02/10 16:08:23 Maternal Grandmother Malignant tumor of breast kspraggsma Not available 02/10 16:08:02 Medical History Condition Response Coronary Artery Disease N Other N High Blood Pressure Y Atrial Fibrillation N Thyroid Problems Y Kidney or Bladder Problems N GI Problems N Depression Y COPD N Blood Clots N Have you had a mammogram in the last yea r? N Skin Problems N Eating Disorder N Anemia N Heart Attack (LA) N Anxiety Disorder Y Diabetes N Muscle, Joint, or Bone Problems Y Arthritis Y Seizures/Epilepsy N Have you had a colonoscopy in the last 1 0 years? N Acid Reflux (GERD) N Cancer N Stroke N Asthma N Allergies N Have you had a PSA blood test in the las t year? N ADHD N Substance Abuse N High Cholesterol N Hepatitis N Liver Disease N Schizophrenia N Headaches Y Heart Failure N Osteoporosis N Gynecological History Statement/Question Response Date of LMP 02/08/2025 Obstetrics History GPAL:G 0 P 0 0 0 0 Past Encounters Encounter ID Performer Location Encounter Start Date Encounter Closed Date Diagnosis/Indication Diagnosis SNOMED-CT Code Diagnosis ICD10 Code Diagnosis Note [id number] Nick Albright PA-C [facility] [address] [place] [address] 02/10/2025 15:50:57 02/14/2025 09:47:47 Pain of right shoulder joint 1916185949 9588699 M25.511 Osteoarthritis 873188924 M15.0 Degenerati ve joint disease involving multiple joints 530796126 M15.9 Overweight 996520926 E66 .3 Health Concerns Section Related Observation LastModified by Organization Detai ls LastModified Time None Recorded Concern Status LastModified by Organization Details LastModified Time None Recorded Advance Directives Directive None Recorded Payers Encounter Date Sequence Insurance Name Policy Number Policy Monterroso Covered Member ID Monterroso Member ID Guarantor Name 02/10/2025 1 [facility]: (PP[facility]) [id number] 1 Patricaguille Charles [id number] Gurjit Charles Notes Date Note Type Note Provider Name and Address Organization Details Recorded Time 02/10/2025 text/html no pcp in awhile...rt shoulder pain..arthritic ? 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 Nick Albright PA-C Attn: Accounting,[address] [place], [address], [facility] 02/10/2025 16:37:38 OBGyn Episode No OBEpisode recorded.
--- OUTSIDE RECORDS SUMMARY | 2025-02-16 13:51 | XMS_ITS | Referral Summary ---
Author Organization [facility] Address [address] [place] [address] Care Team Providers Care Pipe Insulator Name Role Phone Juan Pritchett MD Primary Care Provider Makenzie Choi NP Unavailable [phone] Donnie Barcenas MD Unavailable [phone] Maryellen Chong MD Unavailable Mateusz Reed MD Unavailable [phone] Gonzalo Houston MD Unavailable [phone] Terence Wallis MD Unavailable [phone] Allergies No known active allergies Medications [...] - got worse during and saw a booth operator - Neil only one and got steroid [...] PCP. Also following with neuro surgery at [facility], was seen on 01/15 and they are trying to arrange shading painter for patient, having challenges due to [...] bilateral x-rays. Presentation and PMH reviewed. [facility] HOME HEALTH REGISTERED NURSE from ED called after patient seen today [...] - now wants referral to a different Electronic Test Technician - states nothing is being taken and [...] tolerated Assessment & Plan (11/12/2021 3:00 PM PEDIATRIC ACUTE CARE UNIT NURSE): Wt Readings from Last 3 Encounters: 11/12/21 [...] resources Assessment & Plan (11/12/2021 2:59 PM PEDIATRIC ACUTE CARE UNIT NURSE): - chronic, improved - has history of [...] resources Assessment & Plan (11/12/2021 3:01 PM PEDIATRIC ACUTE CARE UNIT NURSE): - chronic, improved but not at goal [...] but was discharged - she had another supervisor waterproofing who agreed with initial assessment - she [...] but was discharged - she had another supervisor waterproofing who agreed with initial assessment - she also has hx of anxiety and depression - currently on Gabapentin 300mg TID - being prescribed by her neurologist - continue current management Assessment & Plan (03/13/2022 2:22 PM CDT): - chronic, improved - she has been seen by Rheumatology in past but was discharged - she had another supervisor waterproofing who agreed with initial assessment - she also has hx of anxiety and depression - currently on Gabapentin 300mg TID - being prescribed by her neurologist - at this time doing well off her medications in - continue staying off medications if doing well Assessment & Plan (11/12/2021 2:58 PM PEDIATRIC ACUTE CARE UNIT NURSE): - chronic, improved - she has been [...] 08/19/2021 Assessment & Plan (11/12/2021 2:57 PM PEDIATRIC ACUTE CARE UNIT NURSE): - chronic, stable - noted on 08/20 [...] - now wants referral to a different Electronic Test Technician - states nothing is being taken and [...] 12/28/2020 Overview (03/23/2023): Follows with Hem[facility] at [facility] Assessment & Plan (03/17/2022 5:41 AM CDT): [...] . Assessment & Plan (11/12/2021 2:56 PM PEDIATRIC ACUTE CARE UNIT NURSE): Social History Tobacco Use Smoking Status Current [...] Refused),08/30/2020(Deferred: Patient Refused),08/30/2020(Deferred: Patient Refused) Tdap 05/29/2022,08/09/2019 Social History Tobacco Use Types Packs/Day Years [...] often do you attend chur ch or yarsani services? Never 07/06/2022 Do you belong to any clubs o r organizations such as jew groups, unions, fraternal or athletic groups, or [...] should administer the PHQ-9) 0 03/16/2023 [facility] - Occupational Stress Questionnaire Answer Date Recorded [...] place to sleep or slept in a fci (including now)? No 07/06/2022 Personal Safety Answer Date Recorded Getting School Help Needed Not on file 01/26 Comments No Sex and Gender Information Value Date Recorded Sex Assigned at Not on file Legal Sex Female 9:22 AM PEDIATRIC ACUTE CARE UNIT NURSE Gender Identity Female 10/09/2021 6:35 AM PEDIATRIC ACUTE CARE UNIT NURSE Sexual Orientation Bisexual 10/09/2021 6: 35 AM PEDIATRIC ACUTE CARE UNIT NURSE Last Filed Vital Signs Vital Sign Reading Time Taken Comments Blood Pressure 110/72 03/16/2023 3:06 PM CDT Pulse 96 03/16/2023 3:06 PM CDT Temperature 36.4 C (97.6 F) 02/18/2023 10:42 AM CDT Respiratory Rate 18 11/29/2022 5:02 AM PEDIATRIC ACUTE CARE UNIT NURSE Oxygen Saturation 98% 03/16/2023 3:06 PM CDT Inhaled Oxygen Concentration - - Weight 103 kg (227 lb) 03/16/2023 3:06 PM CDT Height 170.2 cm (5' 7 ) 03/16/2023 3:06 PM CDT Body Mass Index 35.55 03/16/2023 3:06 PM CDT Plan of Treatment Not on file Insurance [facility] Advance Directives For more information, please contact: [phone] * Full Code (Latest Code Status on File) Date Activated Date Inactivated Comments 07/05/2022 4:31 PM 07/07/2022 6:20 PM Care Teams Pipe Insulator Relationship Specialty Start Date End Date Juan Pritchett MD PCP - General Family Medicine 08/16/21 Makenzie Choi NP [address] [place] [address] Nurse Practitioner Nurse Practitioner 08/16/21 Donnie Barcenas MD [address] [place] [address] Referring Physician Rheumatology 08/16/21 Maryellen Chong MD [address] [place] [address] Referring Physician General Surgery 08/16/21 Mateusz Reed MD [address] [place] [address] Consulting Physician Neurosurgery 08/16/21 Gonzalo Houston MD [address] [place] [address] Medical Oncologist/Hematologis t Hematology and Oncology 12/29/22 Terence Wallis MD [address] [place] [address] Referring Physician Obstetrics and Gynecology 03/23/23
== END 2025-02-16 13:25 | disposition home or self-care (01) ==
LOC: ANHIMG 13:25
PROVIDERS: Visit Provider Surgery
DX: N61.1 Abscess of the breast and nipple (principal); N61.0 Mastitis without abscess; Z80.3 Family history of malignant neoplasm of breast; R92.8 Other abnormal and inconclusive findings on diagnostic imaging of breast
CPT/HCPCS: 76641; 77062; 77066; G0279

== ENCOUNTER 2025-03-09 13:38 | Outpatient (CLI) | payer BC, SELFPAY ==
--- NOTE | ~2025-03-09 | XR_ITS ---
EXAMINATION: XR skull <4V DATE: 03/09/2025 14:10 INDICATION: Assess for metal shavings in the right eye for MRI clearance. TECHNIQUE: AP, Carr and lateral views of the skull and orbits were obtained. COMPARISON: None. FINDINGS: No metallic foreign bodies identified. Skull and maxillofacial bones are normal with no evident fract ure. Mastoid air cells are well pneumatized. No air-fluid levels in the paranasal sinuses. IMPRESSION: 1. Normal study. No metallic or other radiopaque foreign bodies. Reviewed, dictated and finalized at location B.
--- NOTE | ~2025-03-09 | MR_ITS ---
MR breast BI wo/w con 03/10/2025 7:43 CDT INDICATION: Probable benign bilateral breast masses identified by previous bilateral mammogram and ul trasound dated 02/16/2025 TECHNIQUE: MRI of the breasts perform using standard protocol pre-and post IV contrast with the follo wing sequences: Axial T2 STIR, axial T1, axial vibrant T1 with fat suppression precontrast and multip hasic postcontrast with 20 cc ProHance administered intravenously. COMPARISON: Diagnostic bilateral mammogram and complete bilateral breast ultrasound dated 02/16/2025 FINDINGS: The breasts are composed of heterogeneous tissue. There are no abnormalities on the precont rast sequences. There is moderate background parenchymal enhancement. In the upper outer quadrant of the right breast at approximately 11:00, anterior third there is an 8 x 7 x 9 mm mass with rapid wash out enhancement this corresponds to the 7 mm mass seen on recent ultrasound at 12:00, 2 cm from the n ipple. This mass is round with circumscribed margins. In the mid outer aspect of the right breast, an terior-middle depth there is an oval circumscribed mass measuring 8 x 7 x 5 mm with rapid washout enh ancement which corresponds to the 7 mm mass seen at 9:00, 2 cm from the nipple on prior ultrasound. I n the lower outer quadrant of the right breast, middle third there is a 6 mm enhancing mass with irre gular margins and rapid washout enhancement. There is no definite sonographic correlate to this mass. This mass is isointense on T1 and T2-weighted images. There are no abnormally enlarged axillary or i nternal mammary lymph nodes. LEFT BREAST: No signal abnormalities on precontrast sequences. There is moderate background parenchy mal enhancement. In the lower outer quadrant of the left breast there is an oval mass measuring 11 x 6 mm oval circumscribed mass with dark internal septations and rapid plateau enhancement. This mass i s located in the lower outer quadrant at approximately 5:00, middle third, 6.2 cm posterior to the ni pple without definite sonographic correlate on prior examination. In the lower outer quadrant of the left breast at 4:00, middle third there is a 12 x 9 mm oval enhancing mass with circumscribed margins , heterogeneous enhancement with dark internal septations. This mass is located 4:00, middle third, 6 .8 cm from the nipple with rapid washout enhancement. This likely corresponds to 1 cm mass seen on pr ior ultrasound at 3:00, 5 cm from the nipple. The masses in the left breast are isointense on precont rast sequences. There is a small mass in the upper inner quadrant of the left breast at approximately 12:00, anterior third measuring 9 mm with rapid washout enhancement and located at approximately 12: 00, anterior third, 5.8 cm posterior to the nipple and 3.2 cm to the skin surface. No definite sonogr aphic correlate on prior examination.. IMPRESSION: 1: Right breast: Irregular shaped 6 mm mass of the right breast in the lower outer quadrant at 7:00, middle third with rapid washout enhancement. Second right breast ultrasound recommended. This mass i s located approximately 10.8 cm posterior to the nipple and 2.9 cm from the skin surface. Additional masses described above in the right breast corresponding to masses seen on prior ultrasound are likel y benign. Six-month follow-up diagnostic mammogram and ultrasound recommended for continued surveilla nce. 2: Left breast: Masses in the lower outer quadrant of the left breast at 5:00, middle third, 6.2 cm from the nipple and in the upper inner quadrant at 12:00, anterior third, 5.8 cm from the nipple both exhibit enhancement without definite sonographic correlate on prior study. Second Look left breast u ltrasound recommended. Mass in the lower outer quadrant of the left breast at 4:00, middle third, 6.8 cm posterior to the nipple likely corresponds to previously visualized sonographic mass and is likel y benign. Six-month follow-up diagnostic mammogram and ultrasound recommended. BI-RADS CATEGORY 0 - INCOMPLETE STUDY, NEED ADDITIONAL IMAGING EVALUATION. Reviewed, dictated and finalized at location A. IMPRESSION: 1: Right breast: Irregular shaped 6 mm mass of the right breast in the lower o uter quadrant at 7:00, middle third with rapid washout enhancement. Second righ t breast ultrasound recommended. This mass is located approximately 10.8 cm pos terior to the nipple and 2.9 cm from the skin surface. Additional masses descri bed above in the right breast corresponding to masses seen on prior ultrasound are likely benign. Six-month follow-up diagnostic mammogram and ultrasound koko mmended for continued surveillance. 2: Left breast: Masses in the lower outer quadrant of the left breast at 5:00, middle third, 6.2 cm from the nipple and in the upper inner quadrant at 12:00, anterior third, 5.8 cm from the nipple both exhibit enhancement without defini te sonographic correlate on prior study. Second Look left breast ultrasound rec ommended. Mass in the lower outer quadrant of the left breast at 4:00, middle t hird, 6.8 cm posterior to the nipple likely corresponds to previously visualize d sonographic mass and is likely benign. Six-month follow-up diagnostic mammogr am and ultrasound recommended. BI-RADS CATEGORY 0 - INCOMPLETE STUDY, NEED ADDITIONAL IMAGING EVALUATION.
--- OUTSIDE RECORDS SUMMARY | 2025-03-09 14:05 | XMS_ITS | Continuity of Care Document ---
Author Organization [facility] Address [address] [place] [address] [place] [address] Phone Care Team Providers Care Janitor Custodian Name Role Phone Leonardo Cantu MD Unavailable [...] Copied on Encounter Office/outpat ient Visit, Est [facility], [address] [place] [address] [address], [place], [place], [id number], [place] tel:[phone] SEC Ganesh MT Professional Follow up visit (chief complaint) Corneal scar, left eyeForeign body of left cornea, subsequent encounter Oct-0 201 9 Pepe Patterson. [address] [facility], [address], [place], [place], [id number], [place]. tel:[phone] Referring Provider: Oswaldo Cast, [address] [place] [address] [address] [facility], [place], [address]. tel:[phone] Office/outpat ient Visit, [facility], [address] [place] [address] [address], [place], [place], [id number], tel:[phone] CELINE MARINELLI Professional evaluation (chief complaint) Foreign body of left cornea, initial encounter Aug-0 9 Nuris Chacon. [address] [facility], 6th Floor, [place], [address], [place]. tel:[phone] Family History Family Member Type Diagnosis Age At Onset Problem (finding) Family history of Diabe john mellitus Payers Payer name Insurance type Covered democrat ID Authoriza tion(s) No Information Social History [...]
--- OUTSIDE RECORDS SUMMARY | 2025-03-09 14:05 | XMS_ITS | Clinical Summary ---
Author Organization [facility] Address [address] [place] [address] Phone Care Team Providers Care Maternity Nurse Name Role Phone Donnie Barcenas MD Unavailable [phone] Maryellen Chong MD Unavailable Makenzie Choi APRN Unavailable [phone] Donnie Barcenas MD Unavailable [phone] Betsy Aldana DPM Unavailable [phone] Agustin Albright Primary Care Provider [phone] Allergies No known active allergies Medications ibuprofen [...] 12/28/2020 Leukocytosis 12/28/2020 Palpitations 12/28/2020 Smoker 12/28/2020 Encounters Date Type Department Care Team Description 02/16/2025 3:56 PM CDT - 02/16/2025 11:59 PM CDT Hospital Encounter [facility] Diagnostic Radiology [address] [place] [address] Agustin Albright, ROD Discharge Disposition: Discharged to home or Selfcare 02/16/2025 Travel 02/16/2025 Transcribe Orders [facility] Admitting [address] [place] [address] Agustin Albright, ROD Right shoulder pain, unspecified chronicity (Primary Dx) from Last 3 Months Immunizations Immunization Administration Dates Next Due TDAP Vaccine 05/29/2022,08/09/2019 Family History Medical History Relation Name Comments No Known Problems Brother No Known Problems Father Hypertension Mother Relation Name Status Comments Brother Alive Father Alive Mother Alive Social History Tobacco Use Types Packs/Day Years Used Date Smoking Tobacco: Every Day Cigarettes 1 19.3 Started: 2005 Smokeless Tobacco: Former Snuff Tobacco [...] Cervical Cancer Screening (CCS) 2022 HPV/Cotest 2022 SARS-COV-2 Immunization ( - season) 2024 Influenza Immunization (Season Ended) 2025 Respiratory Syncytial Virus (RSV) Immunization (Adult) (1 - 1-dose 75+ series) 2067 Hepatitis C Virus (HCV) Screening Completed 11/18/2021 DTaP/Tdap/Td Immunization Discontinued 2021, 08/09/2019 Meningococcal Immunization (ACWY) Aged Out No longer eligible based on patient's age to complete this topic Rotavirus Immunization Aged Out No lo nger eligible based on patient's age to complete this topic Procedures Procedure Name Priority Date/Time Associated Diagnosis Comments XR SHOULDER COMPLETE RIGHT Routine 02/16/2025 4:21 PM CDT Right shoulder pain, unspecified chronicity ANTINUCLEAR ANTIBODY (WILBERTO), TITER IF POS Routine 02/16/2025 3:51 PM CDT Osteoarthritis of multiple joints, unspecified osteoarthritis type RHEUMATOID FACTOR (RFQT) QUANT Routine 02/16/2025 3:51 PM CDT Osteoarthritis of multiple joints, unspecified osteoarthritis type COMPLETE BLOOD COUNT (CBC) WITHOUT DIFF Routine 02/16/2025 3:51 PM CDT Osteoarthritis of multiple joints, unspecified osteoarthritis type CMP (COMPREHENSIVE METABOLIC PANEL) Routine 02/16/2025 3:51 PM CDT Osteoarthritis of multiple joints, unspecified osteoarthritis type LIPID PANEL Routine 02/16/2025 3:51 PM CDT Osteoarthritis of multiple joints, unspecified osteoarthritis type from Last 3 Months Results * XR SHOULDER COMPLETE RIGHT (02/16/2025 4:21 PM CDT) Anatomical Region Laterality Modality UPPER EXTREMITY, shoulder Right Digita l Radiography 02/19/2025 12:1 2 PM CDT Impressions 02/19/2025 12:14 PM CDT IMPRESSION: Normal right shoulder evaluation. Narrative 02/19/2025 12:14 PM CDT EXAM DESCRIPTION: XR SHOULDER COMPLETE RIGHT REASON FOR STUDY: pt having rt shoulder pain x 2 months, hurts worse when raising rt arm in air, no injury/fall FINDINGS: Four views right shoulder submitted without comparison. No acute fracture. Alignment is normal. The joint spaces are normal. THIS IS AN ELECTRONICALLY VERIFIED FINAL REPORT 02/19/2025 12:12 PM - Electronically signed by Meliton Galvez M.D. MF: [email or web address] Report ID: [id number] Reading Location: [id number] Procedure Note Meliton Galvez MD - 02/19/2025 EXAM DESCRIPTION: XR SHOULDER COMPLETE RIGHT REASON FOR STUDY: pt having rt shoulder pain x 2 months, hurts worse when raising rt arm in air, no injury/fall FINDINGS: Four views right shoulder submitted without comparison. No acute fracture. Alignment is normal. The joint spaces are normal. THIS IS AN ELECTRONICALLY VERIFIED FINAL REPORT 02/19/2025 12:12 PM - Electronically signed by Meliton Galvez M.D. MF: [email or web address] Report ID: [id number] Reading Location: [id number] IMPRESSION: Normal right shoulder evaluation. Agustin Albright [facility] DIAGNOSTIC ORDERABLES Fin al Result * RHEUMATOID FACTOR (RFQT) QUANT (02/16/2025 3:51 PM CDT) RHEUMATOID FACTOR QT <13 <30 IU/mL 02/16/2025 4:58 PM CDT [facility] Blood Venipuncture / Unknown 02/16/2025 3:51 PM CDT 02/16/2025 4:34 PM CDT Narrative [facility] - 02/16/2025 4:58 PM CDT RHEUMATOID FACTORS CAN BE FOUND IN RHEUMATOID ARTHRITIS, SYPHILIS, VIRAL INFECTIONS, LEPROSY, CHRONIC LIVER DISEASE, NEOPLASMS, AND OTHER INFLAMMATORY CONDITIONS. RF PREVALENCE ALSO INCREASES WITH AGE. THUS A POSITIVE TEST IS NOT RESTRICTED TO RA. CONVERSELY, A NEGATIVE TEST DOES NOT RULE OUT RA, RHEUMATOID FACTORS ARE NOT DETECTABLE IN 10% OF ADULTS WITH THE DISEASE. Agustin Albright PAC CHEMISTRY ORDERABLES Final Re sult [facility] [address] [place] [address] * (ABNORMAL) LIPID PANEL (02/16/2025 3:51 PM CDT) CHOLESTEROL 204(H) <200 mg/dL 02/16/2025 4:58 PM CDT [facility] TRIGLYCERIDES 88 <150 mg/dL 02/16/2025 4:58 PM CDT [facility] HDL CHOLESTEROL 44 >40 mg/dL 4:58 PM CDT [facility] LDL 142(H) <130 mg/dL 02/16/2025 4:58 PM CDT [facility] VLDL 18 10 - 50 mg/dL 02/16/2025 4:58 PM CDT [facility] CHOL/HDL RATIO 4.6(H) 0.0 - 4.4 02/16/2025 4:58 PM CDT [facility] NON-HDL CHOLESTEROL 160(H) <130 mg/dL 02/16/2025 4:58 PM CDT [facility] IS THE PATIENT REQUIRED TO BE FASTING? Yes 02/16/2025 4:58 PM CDT [facility] HAS THE PATIENT BEEN FASTING? Yes 02/16/2025 4:58 PM CDT [facility] Blood Venipuncture / Unknown 02/16/2025 3:51 PM CDT 02/16/2025 4:35 PM CDT us Agustin Albright PAC CHEMISTRY ORDERABLES Final Re sult [facility] [address] [place] [address] * COMPLETE BLOOD COUNT (CBC) WITHOUT DIFF (02/16/2025 3:51 PM CDT) WBC 10.07 4.00 - 12.00 10(3)/mcL 02/16/2025 4:56 PM CDT [facility] RBC 4.61 3.80 - 5.30 10(6)/mcL 02/16/2025 4:56 PM CDT [facility] HEMOGLOBIN (HGB) 14.7 12.0 - 15.8 g/dL 02/16/2025 4:56 PM CDT [facility] HEMATOCRIT (HCT) 43.3 36.0 - 47.0 % 02/16/2025 4:56 PM CDT [facility] MCV 93.9 82.0 - 96.0 fL 02/16/2025 4:56 PM CDT [facility] MCH 31.9 26.0 - 34.0 pg 02/16/2025 4:56 PM CDT [facility] MCHC 33.9 31.0 - 36.0 g/dL 02/16/2025 4:56 PM CDT [facility] PLATELET COUNT 241 140 - 440 10(3)/mcL 02/16/2025 4:56 PM CDT [facility] RDW 12.1 11.8 - 15.5 % 02/16/2025 4:56 PM CDT [facility] MPV 10.1 9.7 - 12.4 fL 02/16/2025 4:56 PM CDT [facility] Blood Venipuncture / Unknown 02/16/2025 3:51 PM CDT 02/16/2025 4:33 PM CDT us Agustin Albright PAC HEMATOLOGY ORDERABLES Final R esult [facility] [address] [place] [address] * (ABNORMAL) CMP (COMPREHENSIVE METABOLIC PANEL) (02/16/2025 3:51 PM CDT) SODIUM 135(L) 136 - 145 mmol/L 02/16/2025 4:58 PM CDT [facility] POTASSIUM 3.9 3.5 - 5.1 mmol/L 02/16/2025 4:58 PM CDT [facility] CHLORIDE 104 98 - 107 mmol/L 02/16/2025 4:58 PM CDT [facility] CO2, VENOUS 23 22 - 30 mmol/L 02/16/2025 4:58 PM CDT [facility] ANION GAP 11.9 <18.0 mmol/L 02/16/2025 4:58 PM CDT [facility] GLUCOSE 85 70 - 99 mg/dL 02/16/2025 4:58 PM CDT [facility] BUN 10 5 - 18 mg/dL 02/16/2025 4:58 PM CDT [facility] CREATININE, BLOOD 0.81 0.60 - 1.00 mg/dL 02/16/2025 4:58 PM CDT [facility] BUN/CREATININE RATIO 12 12 - 20 ratio 02/16/2025 4:58 PM CDT [facility] TOTAL PROTEIN 7.0 6.0 - 8.0 g/dL 02/16/2025 4:58 PM CDT [facility] ALBUMIN 4.1 3.5 - 5.0 g/dL 02/16/2025 4:58 PM CDT [facility] A/G RATIO 1.4 1.0 - 2.2 02/16/2025 4:58 PM CDT [facility] CALCIUM 8.8 8.7 - 10.5 mg/dL 02/16/2025 4:58 PM CDT [facility] T BILI 0.4 0.2 - 1.2 mg/dL 02/16/2025 4:58 PM CDT [facility] SGOT (AST) 17 <43 U/L 02/16/2025 4:58 PM CDT [facility] SGPT (ALT) 15 <56 U/L 02/16/2025 4:58 PM CDT [facility] ALKALINE PHOSPHATASE 54 40 - 150 U/L 02/16/2025 4:58 PM CDT [facility] IS THE PATIENT REQUIRED TO BE FASTING? No 02/16/2025 4:58 PM CDT [facility] GFR, ESTIMATED >60 >=60 02/16/2025 4:58 PM CDT [facility] Comment: Creatinine Clearance is the preferred criteria for selecting drug dose adjustments in renally impaired patients. The GFR is provided as additional pertinent clinical information. GFR is reported in mL/min/1.73 sq m. Calculation based on the Chronic Kidney Disease Epidemiology Collaboration (CKD- EPI) equation refit without adjustment for race. GFR, EST. >60 >=60 025 4:58 PM CDT [facility] GFR, EST. NONAFRICAN >60 >=60 02/16/2025 4:58 PM CDT [facility] Blood Venipuncture / Unknown 02/16/2025 3:51 PM CDT 02/16/2025 4:35 PM CDT Agustin Albright PAC CHEMISTRY ORDERABLES Final Re sult [facility] [address] [place] [address] * ANTINUCLEAR ANTIBODY (WILBERTO), TITER IF POS (02/16/2025 3:51 PM CDT) WILBERTO SCREEN Negative Negative titer 02/17/2025 12:24 PM CDT [facility] Comment: Antinuclear autoantibodies not detected by IFA at a 1:80 screening dilution of HEp-2 cells. WILBERTO TITER Not Applicable Negative, See comment, Not Applicable titer 02/17/2025 12:24 PM CDT [facility] Comment: Antinuclear autoantibodies not detected by IFA at a 1:80 screening dilution of HEp-2 cells. WILBERTO PATTERN NOT APPLICABLE 02/17/2025 12:24 PM CDT [facility] Blood Venipuncture / Unknown 02/16/2025 3:51 PM CDT 02/16/2025 4:34 PM CDT us Agustin VELASCO IMMUNOLOGY ORDERABLES Final R esult [facility] [address] [place] [address], [place] from Last 3 Months Insurance [facility] Care Teams Maternity Nurse Relationship Specialty Start Date End Date Agustin Albright PAC [address] [place] [address] PCP - General Physician Telephone Lines Repairer 02/16/25 Donnie Barcenas MD [address] [address] Internal Medicine 04/24/21 Maryellen Chong MD [address] [phone] Consulting Physician Endocrinology 04/24/21 Makenzie Choi APRN [address] [place] [address] [phone] Family Medicine 06/07/21 Donnie Barcenas MD [address] [place] [address] [id number] Internal Medicine 06/07/21 Betsy Aldana DPM [address] [place] [address] [phone] Consulting Physician Podiatry 03/24/23
--- OUTSIDE RECORDS SUMMARY | 2025-03-09 14:05 | XMS_ITS | Clinical Summary ---
Author Organization [facility] Address [address] [place] [address] Care Team Providers Care Chefs Name Role Phone Juan Pritchett MD Primary Care Provider Makenzie Choi NP Unavailable [phone] Donnie Barcenas MD Unavailable [phone] Maryellen Chong MD Unavailable Mateusz Reed MD Unavailable [phone] Gonzalo Houston MD Unavailable [phone] Terence Wallis MD Unavailable [phone] Allergies No known active allergies Medications [...] - got worse during and saw a baseball club manager - Neil only one and got steroid [...] PCP. Also following with neuro surgery at [facility], was seen on 01/15 and they are trying to arrange paint stockman for patient, having challenges due to insurance [...] bilateral x-rays. Presentation and PMH reviewed. Alen WHEEL BRAIDER from ED called after patient seen today [...] - now wants referral to a different Benefits Clerk - states nothing is being taken and [...] tolerated Assessment & Plan (11/12/2021 3:00 PM TRAFFIC CIRCUIT ENGINEER): Wt Readings from Last 3 Encounters: 11/12/21 [...] resources Assessment & Plan (11/12/2021 2:59 PM TRAFFIC CIRCUIT ENGINEER): - chronic, improved - has history of [...] resources Assessment & Plan (11/12/2021 3:01 PM TRAFFIC CIRCUIT ENGINEER): - chronic, improved but not at goal [...] but was discharged - she had another hand therapist who agreed with initial assessment - she [...] but was discharged - she had another hand therapist who agreed with initial assessment - she also has hx of anxiety and depression - currently on Gabapentin 300mg TID - being prescribed by her neurologist - continue current management Assessment & Plan (03/13/2022 2:22 PM CDT): - chronic, improved - she has been seen by Rheumatology in past but was discharged - she had another hand therapist who agreed with initial assessment - she also has hx of anxiety and depression - currently on Gabapentin 300mg TID - being prescribed by her neurologist - at this time doing well off her medications in - continue staying off medications if doing well Assessment & Plan (11/12/2021 2:58 PM TRAFFIC CIRCUIT ENGINEER): - chronic, improved - she has been [...] 08/19/2021 Assessment & Plan (11/12/2021 2:57 PM TRAFFIC CIRCUIT ENGINEER): - chronic, stable - noted on 08/20 [...] - now wants referral to a different Benefits Clerk - states nothing is being taken and [...] 12/28/2020 Overview (03/23/2023): Follows with Heme[facility]Onc at [facility] Assessment & Plan (03/17/2022 5:41 [...] . Assessment & Plan (11/12/2021 2:56 PM TRAFFIC CIRCUIT ENGINEER): Social History Tobacco Use Smoking Status Current [...] often do you attend chur ch or congregational services? Never 07/06/2022 Do you belong to any clubs o r organizations such as tenriism groups, unions, fraternal or athletic groups, or [...] staff should administer the PHQ-9) 0 03/16/2023 [facility] - Occupational Stress Questionnaire Answer [...] place to sleep or slept in a assisted (including now)? No 07/06/2022 Personal Safety Answer Date Recorded Getting School Help Needed Not on file 01/26 Comments No Sex and Gender Information Value Date Recorded Sex Assigned at Not on file Legal Sex Female 9:22 AM TRAFFIC CIRCUIT ENGINEER Gender Identity Female 10/09/2021 6:35 AM TRAFFIC CIRCUIT ENGINEER Sexual Orientation Bisexual 10/09/2021 6: 35 AM TRAFFIC CIRCUIT ENGINEER Obstetrics History Para Term AB IAB SAB [...] CDT Respiratory Rate 18 11/29/2022 5:02 AM TRAFFIC CIRCUIT ENGINEER Oxygen Saturation 98% 03/16/2023 3:06 PM CDT [...] 02/18/2023, 07/14/2022, Additional history exists Influenza Vaccine (Season Ended) 2025 DTaP/Tdap/Td Vaccine (3 - Td or Tdap) 05/29/2032 05/29/2022, 08/09/2019 HPV Vaccines Aged Out No longer eligi ble based on patient's age to complete this topic Insurance [facility] Advance Directives For more information, please contact: [phone] * Full Code (Latest Code Status on File) Date Activated Date Inactivated Comments 07/05/2022 4:31 PM 07/07/2022 6:20 PM Care Teams Chefs Relationship Specialty Start Date End Date Juan Pritchett MD PCP - General Family Medicine 08/16/21 Makenzie Choi, WHEEL BRAIDER [address] [place] [address] Nurse Practitioner Nurse Practitioner 08/16/21 Donnie Barcenas MD [address] [place] [address] Referring Physician Rheumatology 08/16/21 Maryellen Chong MD [address] [place] [address] Referring Physician General Surgery 08/16/21 Mateusz Reed MD [address] [place] [address] Consulting Physician Neurosurgery 08/16/21 Gonzalo Houston MD [address] [address] Medical Oncologist/Hematologis t Hematology and Oncology 12/29/22 Terence Wallis MD [address] [place], [place] [id number] Referring Physician Obstetrics and Gynecology 03/23/23
--- OUTSIDE RECORDS SUMMARY | 2025-03-09 14:06 | XMS_ITS | Referral Summary ---
Author Organization [facility] Address [address] [place] [address] Care Team Providers Care Hogshead Press Operator Name Role Phone Juan Pritchett MD Primary Care Provider Makenzie Choi NP Unavailable [phone] Donnie Barcenas MD Unavailable [phone] Maryellen Chong MD Unavailable Mateusz Reed MD Unavailable [phone] Gonzalo Houston MD Unavailable [phone] Terence Wallis MD Unavailable [phone] Allergies No known active allergies Medications [...] - got worse during and saw a rubber compounder supervisor - Neil only one and got steroid [...] PCP. Also following with neuro surgery at [facility], was seen on 01/15 and they are trying to arrange paint roller covers supervisor for patient, having challenges due to insurance [...] bilateral x-rays. Presentation and PMH reviewed. Alen SAFETY RELIEF VALVE TECHNICIAN from ED called after patient seen today [...] - now wants referral to a different Laborer Filter Plant - states nothing is being taken and [...] tolerated Assessment & Plan (11/12/2021 3:00 PM ELEMENTARY SECRETARY): Wt Readings from Last 3 Encounters: 11/12/21 [...] resources Assessment & Plan (11/12/2021 2:59 PM ELEMENTARY SECRETARY): - chronic, improved - has history of [...] resources Assessment & Plan (11/12/2021 3:01 PM ELEMENTARY SECRETARY): - chronic, improved but not at goal [...] but was discharged - she had another rehabilitation specialist who agreed with initial assessment - she [...] but was discharged - she had another rehabilitation specialist who agreed with initial assessment - she also has hx of anxiety and depression - currently on Gabapentin 300mg TID - being prescribed by her neurologist - continue current management Assessment & Plan (03/13/2022 2:22 PM CDT): - chronic, improved - she has been seen by Rheumatology in past but was discharged - she had another rehabilitation specialist who agreed with initial assessment - she also has hx of anxiety and depression - currently on Gabapentin 300mg TID - being prescribed by her neurologist - at this time doing well off her medications in - continue staying off medications if doing well Assessment & Plan (11/12/2021 2:58 PM ELEMENTARY SECRETARY): - chronic, improved - she has been [...] 08/19/2021 Assessment & Plan (11/12/2021 2:57 PM ELEMENTARY SECRETARY): - chronic, stable - noted on 08/20 [...] - now wants referral to a different Laborer Filter Plant - states nothing is being taken and [...] 12/28/2020 Overview (03/23/2023): Follows with Heme[facility]Onc at [facility] Assessment & Plan (03/17/2022 5:41 [...] . Assessment & Plan (11/12/2021 2:56 PM ELEMENTARY SECRETARY): Social History Tobacco Use Smoking Status Current [...] often do you attend chur ch or orthodoxy services? Never 07/06/2022 Do you belong to any clubs o r organizations such as worship groups, unions, fraternal or athletic groups, or [...] staff should administer the PHQ-9) 0 03/16/2023 [facility] - Occupational Stress Questionnaire Answer Date Recorded [...] place to sleep or slept in a group home (including now)? No 07/06/2022 Personal Safety Answer Date Recorded Getting School Help Needed Not on file 01/26 Comments No Sex and Gender Information Value Date Recorded Sex Assigned at Not on file Legal Sex Female 9:22 AM ELEMENTARY SECRETARY Gender Identity Female 10/09/2021 6:35 AM ELEMENTARY SECRETARY Sexual Orientation Bisexual 10/09/2021 6: 35 AM ELEMENTARY SECRETARY Last Filed Vital Signs Vital Sign Reading Time Taken Comments Blood Pressure 110/72 03/16/2023 3:06 PM CDT Pulse 96 03/16/2023 3:06 PM CDT Temperature 36.4 C (97.6 F) 02/18/2023 10:42 AM CDT Respiratory Rate 18 11/29/2022 5:02 AM ELEMENTARY SECRETARY Oxygen Saturation 98% 03/16/2023 3:06 PM CDT Inhaled Oxygen Concentration - - Weight 103 kg (227 lb) 03/16/2023 3:06 PM CDT Height 170.2 cm (5' 7 ) 03/16/2023 3:06 PM CDT Body Mass Index 35.55 03/16/2023 3:06 PM CDT Plan of Treatment Not on file Insurance [facility] Advance Directives For more information, please contact: [phone] * Full Code (Latest Code Status on File) Date Activated Date Inactivated Comments 07/05/2022 4:31 PM 07/07/2022 6:20 PM Care Teams Hogshead Press Operator Relationship Specialty Start Date End Date Juan Pritchett MD PCP - General Family Medicine 08/16/21 Makenzie Choi NP [address] [place] [address] Nurse Practitioner Nurse Practitioner 08/16/21 Donnie Barcenas MD [address] [place] [address] Referring Physician Rheumatology 08/16/21 Maryellen Chong MD [address] [place] [address] Referring Physician General Surgery 08/16/21 Mateusz Reed MD [address] [place] [address] Consulting Physician Neurosurgery 08/16/21 Gonzalo Houston MD [address] [place] [address] Medical Oncologist/Hematologis t Hematology and Oncology 12/29/22 Terence Wallis MD [address] [place] [address] Referring Physician Obstetrics and Gynecology 03/23/23
--- OUTSIDE RECORDS SUMMARY | 2025-03-09 14:06 | XMS_ITS | Data Portability ---
Author Organization [facility] Address [address] [place] [address] Care Team Providers Care Leather Leveler Name Role Phone ABDIRASHIDJUSTNIA AGUILAR MANUEL Primary Care Provider Assessment Encounter [...] Lab CBC w/ auto diff [address] (Lab), [address] , [place], [address], 3 14:24:11 CMP, serum or plasma [address] (Lab), [address] [place], [address], 3 14:24:11 lipid panel, blood [address] (Lab), [address] [place], [address], 3 14:24:11 TSH, serum or plasma [address] (Lab), [address] [place], [address], 3 14:24:11 vitamin D, 25-hydrox y, total, serum 023 023 [facility] (Lab), [address], [place], [address], 3 14:24:12 Referral None recorded. Procedures None recorded. Surgeries None recorded. Imaging None recorded. Medication Orders Bactrim DS 800 mg-160 mg tablet 024 024 [facility], [address] [place], [address], 4 10:33:56 Zoloft 50 mg tablet 022 022 [facility], [address] [place], [address], 2 13:11:04 Patient TargetsNo targets recorded. Patient [...] t Abnor mal: Yes Resul ting Lab: [facility] [address] [facility] [address] Tel: CULTU RE ----- ----- ----- --- [...] side test for syner gy. Not Available [facility] Weekend Draws [address] [facility], [place], [address], 06/09/2022 12:39:25 04/06/20 23 04/06/2023 IMAGE GUIDE [...] . Elect humza taverasvilma chuy d by Daryc Cooper, CT on 2022 at 7:32 AM [...] futur e or under lying YADY 1, YADY 3 or cance r. COMME NT: This [...] as clini niecy warra nted. Not Available [facility] (Lab) [address], [place], [address], 04/08/2023 16:55:04 06/25/20 22 06/25/2022 US, pelvi s No observ ation record ed. [email or web address] [facility] [address], [place], [address], 06/25/2022 18:40:49 06/25/20 22 06/25/2022 US, jason sandoval No observ ation record ed. [email or web address] [facility] [address], [place], [address], 06/25/2022 18:41:00 06/25/20 22 06/25/2022 US, pelvi s No observ ation record ed. [email or web address] [facility] [address], [place], [address], 06/25/2022 21:53:18 Result Notes None recorded. Problems Name Problem SNOMED Code Status Onset Date Resolution Date Notes Provider Name and Address Organization Details Recorded Time Pregnanc y 01783314 Completed 202006/27/2022 Norma ugalde [facility] 2 13:10:54 Fibromya lgia 473132892 Completed MFM rec gabapent in 300mg TID, stopped diclofen ac, declines PT referral at this time, pain manageme nt referral Norma gunn [facility] 2 13:10:47 Tobacco user 915938695 Completed 1ppd, encourag ed cessatio n, discusse d risks Norma gunn [facility] 2 13:10:46 Benign essentia l hyperten stefano complica ting pregnanc y, childbir th and the puerperi um - not delivere d 740212192 Completed baseline PIH labs & 24 hour urine (01/24 PCR WNL, AST 20, ALT 32(H)), ASA 162mg no anticoag per MFM, antenata l testing BPP 32wks [facility] 13:10:46 Hashimot o thyroidi tis 67530797 Completed sees endo Dr. Chong, thyroid u/s, 01/24 - stable, TSH WNL, serial growth u/s, ASA, thyroid fxn qtrimete r needs in 3rd tri Norma gunn [facility] 2 13:10:46 Fibromya lgia 501427033 Active MFM rec gabapent in 300mg TID, stopped diclofen ac, declines PT referral at this time, pain manageme nt [facility] 2 13:10:47 Hashimot o thyroidi tis 05526533 Active sees endo Dr. Chong, thyroid u/s, 01/24 - stable, TSH WNL, serial growth u/s, ASA, thyroid fxn qtrimete r needs in 3rd tri Norma Dugankiarayanet ugalde, [facility] 2 13:10:46 Mixed anxiety and depressi ve disorder 345921043 Active no meds currentl y Norma Dugankiarayanet gunn null, [facility] 2 13:10:46 Tobacco user 968638680 Active 1ppd, encourag ed cessatio n, discusse d risks Norma Dugankiarayanet gunn [facility], [facility] 2 13:10:46 Mixed anxiety and depressi ve disorder 162882717 Completed no meds currentl y Noram Dugankiarayanet gunn null, [facility] 2 13:10:46 Factor V Leiden mutation 702526833 Completed mother has - to be tested per MFM - if positive antepart um surveill ance, no anticoag Terence Wallis MD [address], [place], [address], [facility] 2 11:22:17 Chronic pain 00827949 Completed rheumato logy consult, stop diclofen ac, Bilatera l Feet - compress ion stocking s and supporti ve shoes Norma Dugankiarayanet gunn [facility], [facility] 2 13:10:46 Obesity 193433109 Completed 36 wk ante testing with BPP and growth u/s; NEEDS NUTRITIO N COUNSELI NG PER MFM WE ARE TO REFER! Norma Bhardwajnava ugalde, [facility] 2 13:10:46 Liver function tests outside referenc e range 451759001 Completed [facility] Labs Norma ugalde, [facility] 2 13:10:46 Finding of growth 032757781 Completed 2021 Level II on 04/04 r/t 3.7% growth on 03/24 Norma ugalde, [facility] 2 13:10:46 RhD negative 726865407 Completed Rhogam 03/13 Norma gunn null, [facility] 2 13:10:47 Group B Streptoc occus carrier 2402236020 103 Completed abx labor Tamworth Varghese gunn [facility] 2 13:10:47 Hyperten sive disorder 69606945 Active 2023 Mellissa Sal [facility] 4 09:46:10 Problem Notes None recorded. Procedures Surgical History Date Name Laterality Status Provider Name and Address Organization Details Recorded Time 3 procedure on foot completed Mellissa Sal [facility] 01/26/2024 09:52:36 3 Date of Last Pap Smear completed Mony Hou [facility] 06/08/2023 14:23:36 2 Tubal Ligation completed Mellissa Sal [facility] 06/04/2022 17:29:53 2 SECTION (SURG) completed Graciela Ramsay [facility] 05/27/2022 10:13:03 1 Orthopedic Surgery completed Mellissa Sal [facility] 01/06/2022 10:08:15 8 Orthopedic Surgery completed Mellissa Sal [facility] 01/06/2022 10:08:24 7 Orthopedic Surgery completed Mellissa Sal [facility] 01/06/2022 10:08:34 Imaging Results Imaging Date Name Status LastModified by Organization Details LastModified Time 06/25/2022 US, pelvis completed [email or web address] [facility] [address], [place], [address], 06/25/2022 18:40:49 06/25/2022 US, transvaginal completed [email or web address] [facility] [address], [place], [address], 06/25/2022 18:41:00 06/25/2022 US, pelvis completed [email or web address] [facility] [address], [place], [address], 06/25/2022 21:53:18 Procedure Notes None recorded. Medical [...] Updated DateTime 07/04/2022 170.18 cm 34.8 kg/m2 056570.5 1 g 128 mm[Hg] 83 mm[Hg] Mony Hou [facility] 12:43:17 Date Recorded Body height Body mass index (BMI) Body weight Systolic blood pressure Diastolic blood pressure Provider Name and Address Organization Details Last Updated DateTime 07/18/2022 170.18 cm 35.4 kg/m2 402228.8 8 g 129 mm[Hg] 81 mm[Hg] Mony Hou [facility] 2 11:55:51 Date Recorded Body height Body mass index (BMI) Body weight Systolic blood pressure Diastolic blood pressure Provider Name and Address Organization Details Last Updated DateTime 08/01/2022 170.18 cm 34.6 kg/m2 539635.9 1 g 133 mm[Hg] 84 mm[Hg] Mony Hou [facility] 2 14:09:01 Date Recorded Body height Body mass index (BMI) Body weight Systolic blood pressure Diastolic blood pressure Provider Name and Address Organization Details Last Updated DateTime 04/06/2023 170.18 cm 36.3 kg/m2 355758.4 3 g 134 mm[Hg] 85 mm[Hg] Monyantoinette Hou [facility] 3 14:13:13 Date Recorded Body height Body mass index (BMI) Body weight Systolic blood pressure Diastolic blood pressure Provider Name and Address Organization Details Last Updated DateTime 01/26/2024 170.18 cm 36.8 kg/m2 136334.2 1 g 114 mm[Hg] 78 mm[Hg] Mellissa Sal [facility] 4 09:45:28 Social History Question Answer Notes LastModified by Organizat ion Details LastModified Time Tobacco Smoking Status Current Every Day Smoker Mony Hou [facility] 04/06/2023 14:13:34 Do You Have An Advance Directive? No Information not available 01/06/2022 What Is Your Level Of Alcohol Consumption? Occasional Information not available 04/06/2023 If You Are , What Was Your Level Of Alcohol Consumption Prior To ? Occasional Information not available 04/06/2023 How Many Years Have You Consumed Alcohol? 10 [email or web address] Information not available 04/08/2022 Are You Blind Or Do You Have Difficulty Seeing? No Information not available 04/08/2022 What Is Your Level Of Caffeine Consumption? Moderate Information not available 04/06/2023 How Much Tobacco Do You Chew? None [email or web address] Information not available 04/08/2022 In The 14 Days Before Symptom Onset, Have You Had Close Contact With A Laboratory-confir med COVID-19 While That Case Was Ill? No [email or web address] Information not available 01/06/2022 In The 14 Days Before Symptom Onset, Have You Had Close Contact With A Person Who Is Under Investigation For COVID-19 While That Person Was Ill? No [email or web address] Information not available 01/06/2022 Have You Been To An Area Known To Be High Risk For COVID-19? No [email or web address] Information not available 01/06/2022 Are You Deaf Or Do You Have Serious Difficulty Hearing? No [email or web address] Information not available 04/08/2022 What Type Of Diet Are You Following? REGULAR [email or web address] Information not available 04/08/2022 What Is The Highest Grade Or Level Of School You Have Completed Or The Highest Degree You Have Received? 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 No [email or web address] Information not available 04/08/2022 What Is Your Current Pack Years? [email or web address] Information not available 04/06/2023 Do You Use Protection During Sex? No [email or web address] Information not available 04/08/2022 Do You Use Your Seat Belt Or Car Seat Routinely? Yes [email or web address] Information not available 04/08/2022 Do You Have Smoke And Carbon Monoxide Detectors In Your Home? Yes [email or web address] Information not available 04/08/2022 At What Age Did You Start Smoking Tobacco? 17 [email or web address] Information not available 04/08/2022 How Much Tobacco Do You Smoke? 1 PPD [email or web address] Information not available 10/03/2021 Do You Feel Stressed (tense, Restless, Nervous, Or Anxious, Or Unable To Sleep At Night)? [id number] Information not available 04/06/2023 Do You Use Any Illicit Or Recreational Drugs? No Information not available 04/08/2022 Do You Use Sunscreen Routinely? Yes Information not available 04/08/2022 How Many Years Have You Smoked Tobacco? 15 [email or web address] Information not available 10/03/2021 Have You Used IV Drugs? No [email or web address] Information not available 04/08/2022 Sex: Unknown Functional Status Question Answer Note LastModified by Organizat ion Details LastModified Time Do you have difficulty walking or climbing stairs? No Information not available 04/06/2023 Are you able to walk? YESWOREST [email or web address] Information not available 04/08/2022 Are you able to care for yourself? Yes Information not available 04/06/2023 Do you have difficulty dressing or bathing? No Information not available 04/06/2023 What is your exercise level? Moderate [email or web address] Information not available 04/08/2022 Mental Status None recorded. Family History Relationship Description Onset Age of this Age Resolved Age Notes LastModified by Organization Details LastModified Time Mother Hypercholest [email or web address] Not available 2022 14:13:18 Mother Hypertensive disorder Not available 2022 14:13:18 Mother Hypertensive disorder [email or web address] Not available 2023 09:27:02 Mother Blood coagulation disorder Not available 2022 14:13:18 Mother Disorder of thyroid gland Not available 2022 14:13:18 Mother Hypercholest erolemia [email or web address] Not available 2023 09:27:02 Mother Disorder of thyroid gland [email or web address] Not available 2023 09:27:02 Mother Hypertensive disorder Not available 2023 09:27:02 Mother Blood coagulation disorder [email or web address] Not available 2023 09:27:02 Maternal Aunt Asthma Not romina ilable 04/06/2023 14:13:18 Maternal Aunt Asthma [email or web address] Not romina ilable 01/26/2024 09:27:02 Paternal Grandfather Diabetes mellitus Not available 2022 14:13:18 Paternal Grandfather Disorder of lung Not available 2022 14:13:18 Paternal Grandfather Disorder of lung [email or web address] Not available 2023 09:27:02 Paternal Grandfather Diabetes mellitus [email or web address] Not available 2023 09:27:02 Medical History Condition [...] SNOMED-CT Code Diagnosis ICD10 Code Diagnosis Note [id number] Annia Cravajal [facility] [address] [address] 10/28/2021 15:27:34 10/29/2021 10:42:39 Missed period 62979784 N92.5 Venereal d isease screening 151065595 Z11.3 test positive 921155260 Z32.01 Risk factors addressed: Tobacco Cessation, Safe [...] annual well woman examinatio n and address [facility] . [address] [facility] [address],[facility] [address] 10/28/2021 15:28:36 10/28/2021 17:22:47 [id number] [facility] [address] [address] 11/26/2021 16:00:18 11/26/2021 16:36:43 screening 805740585 Z36.82 [id number] Ana Bridges MD [facility] [address] [address] 11/26/2021 16:01:21 11/27/2021 10:23:49 Routine care 867467794 Z34.91 Benign ess ential hypertension complicating , childbirth and the puerperium - not delivered 224105680 O10.019 Fibromyalgia 818831028 M 79.7 Delmy thyroiditis 21 102305 E06.3 Mixed anxi ety and depressive disorder 831250749 F41.8 Tobacco user 206481754 Z 72.0 [id number] Shani Sexton ier [facility] [address],[place] [address] 12/24/2021 10:08:10 12/24/2021 13:35:32 Routine care 891398003 Z34.92 RN visit. heart tones 141-153 [place] [id number] [facility] [address],[place] [address] 01/06/2022 09:59:08 01/06/2022 11:38:15 Routine care 254299216 Z34.92 [id number] Terence Wallis MD [facility] [address],[place] [address] 01/30/2022 10:48:38 01/30/2022 11:33:02 Routine care 017526856 Z34.92 [id number] Ele Schwab [facility] [address],[place] [address] 02/20/2022 09:27:49 02/20/2022 11:24:24 Small for gestational age fetus 947662499 O36.5999 Z3A.24 [id number] Terence Wallis MD [facility] [address],[place] [address] 02/20/2022 09:28:27 02/20/2022 14:32:07 Routine care 770218333 Z34.92 [id number] [address],[place] [address] 03/24/2022 14:31:58 03/25/2022 17:00:16 Routine care 074051991 Z34.93 [id number] Oriana Rojas [facility] [address],[place] [address] 03/24/2022 14:31:29 03/24/2022 15:52:08 Poor growth affecting management 099912180 O36.5930 Z3A.29 O10.013 [id number] [facility] [address],[place] [address] 04/08/2022 12:31:02 04/10/2022 16:32:12 Routine care 076368259 Z34.93 Urinary tr act infectious disease 88342708 N39.0 [id number] Shani Sexton r [facility] [address],[place] [address] 04/16/2022 14:00:42 04/17/2022 09:50:27 Benign essential hypertension complicating , childbirth and the puerperium - not delivered 904999740 O10.019 [id number] Ele Schwab [facility] [address],[place] [address] 04/16/2022 14:00:55 04/17/2022 09:51:19 Chronic hypertension complicating AND/OR reason for care during 92089838 O16.9 Z3A.32 [id number] Ling Veloz CNM [facility] [address],[place] [address] 04/25/2022 13:54:01 04/25/2022 15:59:04 Routine care 153879276 Z34.92 [id number] Larissa Johnson [facility] [address],[place] [address] 04/25/2022 13:55:23 04/25/2022 14:48:22 Chronic hypertension complicating AND/OR reason for care during 00423145 O16.9 Z3A.32 [id number] Annia Carvajal [facility] [address],[place] [address] 05/01/2022 16:02:23 05/02/2022 17:00:09 Routine care 425192863 Z34.93 [id number] Ele Schwab [facility] [address],[place] [address] 05/07/2022 12:00:59 05/07/2022 13:16:26 Chronic hypertension complicating AND/OR reason for care during 29310474 O16.9 Z3A.35 [id number] Mony Hou [facility] [address],[place] [address] 05/07/2022 12:01:20 05/07/2022 14:18:38 Benign essential hypertension complicating AND/OR reason for care during 33236968 O10.019 [id number] Ling Veloz [facility] [address],[place] [address] 05/07/2022 12:01:36 05/07/2022 13:45:20 Routine care 077521916 Z34.92 [id number] Ele Schwab [facility] [address],[place] [address] 05/14/2022 13:47:03 05/14/2022 14:31:48 Chronic hypertension complicating AND/OR reason for care during 93177541 O16.9 Z3A.36 [id number] Shani Sexton [facility] [address],[place] [address] 05/14/2022 13:47:30 05/14/2022 16:48:52 Benign essential hypertension complicating , childbirth and the puerperium - not delivered 035466663 O10.019 [id number] Ling Veloz [facility] [address],[place] [address] 05/14/2022 13:48:56 05/14/2022 16:07:43 Routine care 885910896 Z34.92 [id number] Shani Sexton [facility] [address],[place] [address] 05/21/2022 16:53:30 05/22/2022 14:44:35 Benign essential hypertension complicating , childbirth and the puerperium - not delivered 087357182 O10.019 [id number] Terence Wallis MD [facility] [address],[place] [address] 05/21/2022 16:53:45 05/22/2022 14:56:51 Routine care 030981603 Z34.92 [id number] Larissa Johnson [facility] [address],[place] [address] 05/23/2022 12:31:17 05/23/2022 13:46:24 Benign essential hypertension complicating AND/OR reason for care during 06855617 O10.019 [id number] [facility] [address],[place] [address] 06/04/2022 17:11:20 06/11/2022 17:03:10 Postoperative visit 103406840 Z09 [id number] [facility] [address],[place] [address] 06/11/2022 15:27:00 06/11/2022 16:03:35 Migraine 63496326 G43.909 take 1-2 call if does not resolve Infection of skin 749737 000 L08.9 ampicillin per culture, f/u 2 weeks precaution s reviewed [id number] [facility] [address],[place] [address] 06/25/2022 17:17:54 06/25/2022 18:54:38 Pain in pelvis 19523024 R10.2 [id number] Ele Schwab [facility] [address],[place] [address] 06/25/2022 18:20:59 06/25/2022 18:47:05 Pain in pelvis 35905287 R10.2 [id number] Terence Wallis MD [facility] [address],[place] [address] 07/04/2022 12:09:49 07/04/2022 13:21:07 Mixed anxiety and depressive disorder 204665208 F41.8 This patient is a 32-year-ol d [...] in 4 weeks for impression Postoperative care 38113 9007 Z48.89 [id number] Terence Wallis MD [facility] [address],[place] [address] 07/18/2022 11:40:22 07/18/2022 12:35:14 depression 40331095 F53.0 this patient is a 32-year-ol d female presents for follow-up on depression . She is doing well. Her mood is much improved. She notices appreciabl e difference . She has a little bit of shakiness or tremor -like feeling. Technicall y not tremor. given reassuranc e. Overall very satisfied, she will return in 3 months. Her baby is doing well. [id number] Terence Wallis MD [facility] [address],[place] [address] 08/01/2022 13:58:06 08/01/2022 14:49:50 depression 24207534 F53.0 this patient is a 32-year-ol d [...] contact us for any Worsening of mood. [id number] Terence Wallis MD [facility] [address],[facility] [place] [address] 04/06/2023 13:59:17 04/06/2023 14:52:13 Gynecologic examination 78061600 Z01.419 Annual gynecologi terese exam performed. Patient [...] ordered Pap - today Hidradenit is suppurativa 43828391 L73.2 Pain in pelvis 31030599 R10.2 week ultrasound intake this up another appointmen t. [id number] Terence Wallis MD [facility] [address] [address] 01/26/2024 09:26:57 01/26/2024 10:39:49 Breast infection 848738066 N61.0 this patient is a 34-year-ol d [...] [place] Member ID Guarantor Name 07/04/2022 1 [facility] ON OR AFTER 05/30/21 (MEDICAID REPLACEMENT - HMO) Gurjit Charles [id number] Gurjit Charles 07/18/2022 1 [facility] ON OR AFTER 05/30/21 (MEDICAID REPLACEMENT - HMO) Gurjit Charles [id number] Gurjit Charles 08/01/2022 1 [facility] ON OR AFTER 05/30/21 (MEDICAID REPLACEMENT - HMO) Gurjit Charles [id number] Gurjit Charles 04/06/2023 1 [facility] ON OR AFTER 05/30/21 (MEDICAID REPLACEMENT - HMO) Gurjit Charles [id number] Gurjit hCarles 01/26/2024 1 [employer] [id number] Gurjit Charles [id number] Gurjit Charles Notes Date Note Type [...] impression Terence Wallis MD [address], [place], [address], [facility] 07/04/2022 13:20:27 07/18/2022 text/html this patient [...] well. Terence Wallis MD [address], [place], [address], [facility] 07/18/2022 12:28:18 08/01/2022 text/html this patient [...] us for any Worsening of mood. Terence Wallis MD [address], [place], [address], [facility] 08/01/2022 14:29:40 04/06/2023 text/html Annual GYNReport [...] exercise Terence Wallis MD [address], [place], [address], [facility] 04/06/2023 14:49:21 01/26/2024 text/html this patient [...] after antibiotic treatment. We spent 20 minutes [id number]. More than 50% was counseling. Breasts were examined. Terence Wallis MD [address], [place], [address], [facility] 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 RhD negative 567629964 Rhogam 03/13 Finding of growth 03/24/2022 236877849 Level II on 04/04 r/t 3.7% growth on 03/24 Liver function tests outside reference range 847866572 [facility] Labs Group B Streptococcus carrier [id number] abx labor Fibromyalgia MEDICATION 353298517 MFM re c gabapentin 300mg TID, stopped diclofenac, declines PT referral at this time, pain management referral Tobacco user [id number] 1ppd, e ncouraged cessation, discussed risks Benign essential hypertension complicating , childbirth and the puerperium - not delivered baseline PIH l abs & 24 hour urine (01/24 PCR WNL, AST 20, ALT 32(H)), ASA 162mg no anticoag per [facility], testing BPP 32wks Delmy thyroiditis [id number] sees endo Dr. Chong, thyroid u/s, 01/24 - stable, TSH WNL, serial growth u/s, ASA, thyroid fxn qtrimeter needs in 3rd tri Mixed anxiety and depressive disorder [id number] no meds currently Ed Calculation Initial Ed [...] Date Ultra Sound Latest Days Gestation 0 [id number] 11/26/2021 06/09/20 22 0 Pre-pop Flowsheet Flowsheet [...] Weight in lbs Pre/Post Dialysis Refused Weight 228.022308682803 BP Diastolic BP Location Tested BP Systolic BP Type 78 117 Fetus Heart Rate Present A 160 Fetus Movement A No Comments Gujrit is a 31yo G1 at 12.1 for [...] Weight in lbs Pre/Post Dialysis Refused Weight 233.655930070450 BP Diastolic BP Location Tested BP Systolic [...] Weight in lbs Pre/Post Dialysis Refused Weight 242.919773290267 BP Diastolic BP Location Tested BP Systolic [...] Weight in lbs Pre/Post Dialysis Refused Weight 239.705827209811 BP Diastolic BP Location Tested BP Systolic BP Type 77 L arm 120 sitting Fetus Heart Rate Present A 145 Fetus Movement Comments Discussed growth concerns , discussed flank pain -episode of severe right-sided flank pain. , patient has some plantar fasciitis that she is being observed for and treated. 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 Has fibromyalgia. Blood pressure stable Flowsheet [...] Weight in lbs Pre/Post Dialysis Refused Weight 243.198987127691 BP Diastolic BP Location Tested BP Systolic [...] ran out and when she went to [facility] for her first visit they did not tell her she couldn't restart so she refilled and restarted. Last [facility] visit she was told to discontinue d/t risks in .April 09 [facility] visit and Dr Houston (cancer doctor for increased wbc). F/U with Dr Chong on April 23. TSH drawn 2 weeks ago. Flowsheet Date 04/08/2022 Ramachandran Score Blood Edema Fundus Height Fundus Units Glucose Ketones Leukocytes Nitrite Labor Signs Protein Cervic Dilation Cervic Effacement Cervic Station neg trace 31 none trace Type Weight in lbs Pre/Post Dialysis Refused Weight 250.129970547029 BP Diastolic BP Location Tested BP Systolic BP Type 76 117 Fetus Heart Rate Present A 140 Fetus Movement A Yes Comments Discomfort with urination. P t does have 2+ leuks. SP tenderness. Will treat with macrobid. Will schedule testing tomorrow.[facility] visit with ultrasound scheduled on 04-25. Flowsheet Date 04/16/2022 Ramachandran Score Blood Edema Fundus Height Fundus Units Glucose Ketones Leukocytes Nitrite Labor Signs Protein Cervic Dilation Cervic Effacement Cervic Station Type Weight in lbs Pre/Post Dialysis Refused Weight 248.594884599019 BP Diastolic BP Location Tested BP Systolic [...] Weight in lbs Pre/Post Dialysis Refused Weight 249.334281213466 BP Diastolic BP Location Tested BP Systolic [...] Weight in lbs Pre/Post Dialysis Refused Weight 249.751159049549 BP Diastolic BP Location Tested BP Systolic [...] was drawn. Will have ob nurse contact [facility] to see if they want the t4. BW left a message with [facility]. Flowsheet Date 05/01/2022 Ramachandran Score Blood [...] Weight in lbs Pre/Post Dialysis Refused Weight 248.768457794174 BP Diastolic BP Location Tested BP Systolic [...] Weight in lbs Pre/Post Dialysis Refused Weight 251.18440553325 BP Diastolic BP Location Tested BP Systolic [...] Weight in lbs Pre/Post Dialysis Refused Weight 245.618184731503 BP Diastolic BP Location Tested BP Systolic [...] Weight in lbs Pre/Post Dialysis Refused Weight 232.67757447766 BP Diastolic BP Location Tested BP Systolic BP Type 67 114 Fetus Heart Rate Present Fetus Movement Comments Flowsheet Date 06/11/2022 Ramachandran Score Blood Edema Fundus Height Fundus Units Glucose Ketones Leukocytes Nitrite Labor Signs Protein Cervic Dilation Cervic Effacement Cervic Station Type Weight in lbs Pre/Post Dialysis Refused Weight 230.623308226346 BP Diastolic BP Location Tested BP Systolic BP Type 89 135 Fetus Heart Rate Present Fetus Movement Comments Flowsheet Date 06/25/2022 Ramachandran Score Blood Edema Fundus Height Fundus Units Glucose Ketones Leukocytes Nitrite Labor Signs Protein Cervic Dilation Cervic Effacement Cervic Station Type Weight in lbs Pre/Post Dialysis Refused Weight 224.650296862664 BP Diastolic BP Location Tested BP Systolic [...] Estim ated Date of Delivery false Thalassemia (Thai, Palauan, Mediterranean, Or Background): MCV < 80 false Neural Tube Defect (Meningomyelocele, Spina Bifi da, Or Anencephaly) false Congenital Heart Defect false Down Syndrome false Bharath-Sachs (eg, Latter-Day, Cajun, [place]) f alse Jerson Disease false Sickle Cell [...]
== END 2025-03-09 13:39 | disposition home or self-care (01) ==
PROVIDERS: PCP Physician Assistant; Visit Provider Surgery
DX: R92.343 Mammographic extreme density, bilateral breasts (principal); Z12.39 Encounter for other screening for malignant neoplasm of breast; Z80.3 Family history of malignant neoplasm of breast; Z87.898 Personal history of other specified conditions; R92.2 Inconclusive mammogram
CPT/HCPCS: 70250; 77049; A9579; C8908

== ENCOUNTER 2025-03-23 13:20 | Outpatient (CLI) | payer BC, SELFPAY ==
--- NOTE | ~2025-03-23 | US_ITS ---
US breast BI limited 03/23/2025 14:22 Indication: Follow-up bilateral breast masses Procedure: High-resolution Limited bilateral breast ultrasound Comparison: Comparison to multiple prior studies sequentially, with oldest reviewed study dated 02/16. Findings: Right breast: At 12:00, 2 cm from the nipple there is an oval hypoechoic circumscribed 7 mm mass with minimal internal vascularity and no posterior features, likely benign. This is unchanged from prior study. At 9:00 2 cm from the nipple there is an oval hypoechoic 7 mm mass with parallel orientation, circumscribed margins and no posterior features is internal vascularity. Mass is unchanged from prior study allowing for technique. No mass identified in the area of concern described on MRI dated 2024 and the 7:00 position. Left breast: At 12:00, 4 cm from the nipple there is a 5 mm cyst. At 3:00, 5 cm from the nipple there is no parallel oriented hypoechoic mass with circumscribed margins measuring 12 x 10 x 5 mm with pos terior acoustic enhancement and no internal vascularity without change from prior examination, likely corresponding to mass seen on recent MRI. Impression: 1: Probable benign bilateral breast masses. BI-RADS CATEGORY 3-PROBABLY BENIGN FINDING RECOMMENDATION: Six-month follow-up diagnostic bilateral mammogram and Limited bilateral breast ultra sound recommended. Reviewed, dictated and finalized at location A. Impression: 1: Probable benign bilateral breast masses. BI-RADS CATEGORY 3-PROBABLY BENIGN FINDING RECOMMENDATION: Six-month follow-up diagnostic bilateral mammogram and Limited bilateral breast ultrasound recommended.
--- OUTSIDE RECORDS SUMMARY | 2025-03-23 14:25 | XMS_ITS | Data Portability ---
Author Organization [facility] Address [address] [place] [address] Care Team Providers Care Shaker Repairer Name Role Phone ABDIRASHIDJUSTINA AGUILAR MANUEL Primary [...] Lab CBC w/ auto diff [address] (Lab), [address] , [place], [address], 3 14:24:11 CMP, serum or plasma [address] (Lab), [address] [place], [address], 3 14:24:11 lipid panel, blood [address] (Lab), [address] [place], [address], 3 14:24:11 TSH, serum or plasma [address] (Lab), [address] [place], [address], 3 14:24:11 vitamin D, 25-hydrox y, total, serum 023 023 [email or web address] (Lab), [address] [facility], [place], [address], 3 14:24:12 Referral None recorded. Procedures None recorded. Surgeries None recorded. Imaging None recorded. Medication Orders Bactrim DS 800 mg-[address] [facility], [address] [place], [address], 4 10:33:56 Zoloft 50 mg tablet [address] [facility], [address] [place], [address], 2 13:11:04 Patient TargetsNo targets recorded. Patient [...] t Abnor mal: Yes Resul ting Lab: [facility] [address] [facility] [address] Tel: CULTU RE ----- ----- ----- --- [...] side test for syner gy. Not Available [facility] - Stat Weekend Draws [address] [facility], [place], [address], 06/09/2022 12:39:25 04/06/20 23 04/06/2023 IMAGE GUIDE [...] as clini niecy warra nted. Not Available [facility] (Lab) [address], [place], [address], 04/08/2023 16:55:04 06/25/20 22 06/25/2022 US, pelvi s No observ ation record ed. [email or web address] [facility] [address], [place], [address], 06/25/2022 18:40:49 06/25/20 22 06/25/2022 US, jason sandoval No observ ation record ed. [email or web address] [facility] [address], [place], [address], 06/25/2022 18:41:00 06/25/20 22 06/25/2022 US, pelvi s No observ ation record ed. [email or web address] [facility] [address], [place], [address], 06/25/2022 21:53:18 Result Notes None recorded. Problems Name Problem SNOMED Code Status Onset Date Resolution Date Notes Provider Name and Address Organization Details Recorded Time Pregnanc y 30818752 Completed 202006/27/2022 Norma ugalde [facility] 2 13:10:54 Fibromya lgia 215938326 Completed MFM rec gabapent in 300mg TID, stopped diclofen ac, declines PT referral at this time, pain manageme nt referral Norma gunn [facility] 2 13:10:47 Tobacco user 962936414 Completed 1ppd, encourag ed cessatio n, discusse d risks Norma gunn [facility] 2 13:10:46 Benign essentia l hyperten stefano complica ting pregnanc y, childbir th and the puerperi um - not delivere d 928818013 Completed baseline PIH labs & 24 hour urine (01/24 PCR WNL, AST 20, ALT 32(H)), ASA 162mg no anticoag per MFM, antenata l testing BPP 32wks [facility] 2 13:10:46 Hashimot o thyroidi tis 01194954 Completed sees endo Dr. Chong, thyroid u/s, 01/24 - stable, TSH WNL, serial growth u/s, ASA, thyroid fxn qtrimete r needs in 3rd tri Norma gunn [facility] 2 13:10:46 Fibromya lgia 923571557 Active MFM rec gabapent in 300mg TID, stopped diclofen ac, declines PT referral at this time, pain manageme nt referral [facility] 2 13:10:47 Hashimot o thyroidi tis 77854675 Active sees endo Dr. Chong, thyroid u/s, 01/24 - stable, TSH WNL, serial growth u/s, ASA, thyroid fxn qtrimete r needs in 3rd tri Norma Dugankiarayanet ugalde, [facility] 2 13:10:46 Mixed anxiety and depressi ve disorder 076965237 Active no meds currentl y Norma Dugankiarayanet gunn null, [facility] 2 13:10:46 Tobacco user 009765295 Active 1ppd, encourag ed cessatio n, discusse d risks Norma Dugankiarayanet gunn [facility], [facility] 2 13:10:46 Mixed anxiety and depressi ve disorder 274392728 Completed no meds currentl y Norma Dugankiarayanet gunn null, [facility] 2 13:10:46 Factor V Leiden mutation 879331515 Completed mother has - to be tested per MFM - if positive antepart um surveill ance, no anticoag Terence Wallis MD [address], [place], [address], [facility] 2 11:22:17 Chronic pain 98926795 Completed rheumato logy consult, stop diclofen ac, Bilatera l Feet - compress ion stocking s and supporti ve shoes Norma Dugankiarayanet gunn [facility], [facility] 2 13:10:46 Obesity 595096892 Completed 36 wk ante testing with BPP and growth u/s; NEEDS NUTRITIO N COUNSELI NG PER MFM WE ARE TO REFER! Norma Bhardwajnava ugalde, [facility] 2 13:10:46 Liver function tests outside referenc e range 378503260 Completed [facility] Labs Norma ugalde, [facility] 2 13:10:46 Finding of growth 245538114 Completed 2021 Level II on 04/04 r/t 3.7% growth on 03/24 Norma ugalde, [facility] 2 13:10:46 RhD negative 816929227 Completed Rhogam 03/13 Norma gunn null, [facility] 2 13:10:47 Group B Streptoc occus carrier [id number] 103 Completed abx labor Orla Varghese gunn [facility] 2 13:10:47 Hyperten sive disorder 07075432 Active 2023 Mellissa Sal [facility] 4 09:46:10 Problem Notes None [...] 10:08:24 7 Orthopedic Surgery completed Mellissa Sal [facility] 01/06/2022 10:08:34 Imaging Results Imaging Date Name Status LastModified by Organization Details LastModified Time 06/25/2022 US, pelvis completed [email or web address] [facility] [address], [place], [address], 06/25/2022 18:40:49 06/25/2022 US, transvaginal completed [email or web address] [facility] [address], [place], [address], 06/25/2022 18:41:00 06/25/2022 US, pelvis completed [email or web address] [facility] [address], [place], [address], 06/25/2022 21:53:18 Procedure Notes None recorded. Medical [...] Updated DateTime 07/04/2022 170.18 cm 34.8 kg/m2 180890.5 1 g 128 mm[Hg] 83 mm[Hg] Mony Hou [facility] 12:43:17 Date Recorded Body height Body mass index (BMI) Body weight Systolic blood pressure Diastolic blood pressure Provider Name and Address Organization Details Last Updated DateTime 07/18/2022 170.18 cm 35.4 kg/m2 391936.8 8 g 129 mm[Hg] 81 mm[Hg] Mony Hou [facility] 2 11:55:51 Date Recorded Body height Body mass index (BMI) Body weight Systolic blood pressure Diastolic blood pressure Provider Name and Address Organization Details Last Updated DateTime 08/01/2022 170.18 cm 34.6 kg/m2 410831.9 1 g 133 mm[Hg] 84 mm[Hg] Mony Hou [facility] 2 14:09:01 Date Recorded Body height Body mass index (BMI) Body weight Systolic blood pressure Diastolic blood pressure Provider Name and Address Organization Details Last Updated DateTime 04/06/2023 170.18 cm 36.3 kg/m2 247143.4 3 g 134 mm[Hg] 85 mm[Hg] Monyantoinette Hou [facility] 3 14:13:13 Date Recorded Body height Body mass index (BMI) Body weight Systolic blood pressure Diastolic blood pressure Provider Name and Address Organization Details Last Updated DateTime 01/26/2024 170.18 cm 36.8 kg/m2 491026.2 1 g 114 mm[Hg] 78 mm[Hg] Mellissa Sal [facility] 4 09:45:28 Social History Question Answer Notes LastModified by Organizat ion Details LastModified Time Tobacco Smoking Status Current Every Day Smoker Mony Hou [facility] 04/06/2023 14:13:34 Do You Have An Advance Directive? No [email or web address] Information not available 01/06/2022 What Is Your Level Of Alcohol Consumption? Occasional Information not available 04/06/2023 If You Are , What Was Your Level Of Alcohol Consumption Prior To ? Occasional Information not available 04/06/2023 How Many Years Have You Consumed Alcohol? 10 [email or web address] Information not available 04/08/2022 Are You Blind Or Do You Have Difficulty Seeing? No [email or web address] Information not available 04/08/2022 What Is Your Level Of Caffeine Consumption? Moderate Information not available 04/06/2023 How Much Tobacco Do You Chew? None [email or web address] Information not available 04/08/2022 In The 14 Days Before Symptom Onset, Have You Had Close Contact With A Laboratory-confir med COVID-19 While That Case Was Ill? No Information not available 01/06/2022 In The 14 Days Before Symptom Onset, Have You Had Close Contact With A Person Who Is Under Investigation For COVID-19 While That Person Was Ill? No [email or web address] Information not available 01/06/2022 Have You Been To An Area Known To Be High Risk For COVID-19? No Information not available 01/06/2022 Are You Deaf Or Do You Have Serious Difficulty Hearing? No [email or web address] Information not available 04/08/2022 What Type Of Diet Are You Following? REGULAR [email or web address] Information not available 04/08/2022 What Is The Highest Grade Or Level Of School You Have Completed Or The Highest Degree You Have Received? 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 No [email or web address] Information not available 04/08/2022 What Is Your Current Pack Years? 10-19packyears Information not available 04/06/2023 Do You Use Protection During Sex? No [email or web address] Information not available 04/08/2022 Do You Use Your Seat Belt Or Car Seat Routinely? Yes [email or web address] Information not available 04/08/2022 Do You Have Smoke And Carbon Monoxide Detectors In Your Home? Yes [email or web address] Information not available 04/08/2022 At What Age Did You Start Smoking Tobacco? 17 [email or web address] Information not available 04/08/2022 How Much Tobacco Do You Smoke? 1 PPD Information not available 10/03/2021 Do You Feel Stressed (tense, Restless, Nervous, Or Anxious, Or Unable To Sleep At Night)? [id number] Information not available 04/06/2023 Do You Use Any Illicit Or Recreational Drugs? No [email or web address] Information not available 04/08/2022 Do You Use Sunscreen Routinely? Yes [email or web address] Information not available 04/08/2022 How Many Years Have You Smoked Tobacco? 15 [email or web address] Information not available 10/03/2021 Have You Used IV Drugs? No [email or web address] Information not available 04/08/2022 Sex: Unknown Functional Status Question Answer Note LastModified by Organizat ion Details LastModified Time Do you have difficulty walking or climbing stairs? No Information not available 04/06/2023 Are you able to walk? YESWOREST [email or web address] Information not available 04/08/2022 Are you able to care for yourself? Yes Information not available 04/06/2023 Do you have difficulty dressing or bathing? No Information not available 04/06/2023 What is your exercise level? Moderate [email or web address] Information not available 04/08/2022 Mental Status None recorded. Family History Relationship Description Onset Age of this Age Resolved Age Notes LastModified by Organization Details LastModified Time Mother Hypercholest erolemia Not available 2022 14:13:18 Mother Hypertensive disorder Not available 2022 14:13:18 Mother Hypertensive disorder [email or web address] Not available 2023 09:27:02 Mother Blood coagulation disorder Not available 2022 14:13:18 Mother Disorder of thyroid gland Not available 2022 14:13:18 Mother Hypercholest erolemia [email or web address] Not available 2023 09:27:02 Mother Disorder of thyroid gland [email or web address] Not available 2023 09:27:02 Mother Hypertensive disorder [email or web address] Not available 2023 09:27:02 Mother Blood coagulation disorder [email or web address] Not available 2023 09:27:02 Maternal Aunt Asthma Not romina ilable 04/06/2023 14:13:18 Maternal Aunt Asthma [email or web address] Not romina ilable 01/26/2024 09:27:02 Paternal Grandfather Diabetes mellitus Not available 2022 14:13:18 Paternal Grandfather Disorder of lung Not available 2022 14:13:18 Paternal Grandfather Disorder of lung [email or web address] Not available 2023 09:27:02 Paternal Grandfather Diabetes [...] SNOMED-CT Code Diagnosis ICD10 Code Diagnosis Note [id number] Annia Carvajal [facility] [address] [address] 10/28/2021 15:27:34 10/29/2021 10:42:39 Missed period 79756969 N92.5 Venereal d isease screening 537201611 Z11.3 test positive 000772386 Z32.01 Risk factors addressed: Tobacco Cessation, Safe [...] annual well woman examinatio n and address [facility] . [address] [facility] [address],[facility] [address] 10/28/2021 15:28:36 10/28/2021 17:22:47 [id number] [facility] [address] [address] 11/26/2021 16:00:18 11/26/2021 16:36:43 screening 984411030 Z36.82 [id number] Ana Bridges MD [facility] [address] [address] 11/26/2021 16:01:21 11/27/2021 10:23:49 Routine care 730638338 Z34.91 Benign ess ential hypertension complicating , childbirth and the puerperium - not delivered 043697435 O10.019 Fibromyalgia 448927623 M 79.7 Delmy thyroiditis 21 443619 E06.3 Mixed anxi ety and depressive disorder 719549139 F41.8 Tobacco user 787829013 Z 72.0 [id number] Shani Sexton ier [facility] [address],[place] [address] 12/24/2021 10:08:10 12/24/2021 13:35:32 Routine care 569851842 Z34.92 RN visit. heart tones 141-153 [place] [address] [facility] [address],[place] [address] 01/06/2022 09:59:08 01/06/2022 11:38:15 Routine care 166074974 Z34.92 [id number] Terence Wallis MD [facility] [address],[place] [address] 01/30/2022 10:48:38 01/30/2022 11:33:02 Routine care 675587488 Z34.92 [id number] Ele Schwab [facility] [address],[place] [address] 02/20/2022 09:27:49 02/20/2022 11:24:24 Small for gestational age fetus 527725524 O36.5999 Z3A.24 [id number] Terence Wallis MD [facility] [address],[place] [address] 02/20/2022 09:28:27 02/20/2022 14:32:07 Routine care 393571521 Z34.92 [id number] [facility] [address] [address] 03/24/2022 14:31:58 03/25/2022 17:00:16 Routine care 200044389 Z34.93 [id number] Oriana Rojas [facility] [address],[place] [address] 03/24/2022 14:31:29 03/24/2022 15:52:08 Poor growth affecting management 984018505 O36.5930 Z3A.29 O10.013 27720 [facility] [address],[place] [address] 04/08/2022 12:31:02 04/10/2022 16:32:12 Routine care 904599777 Z34.93 Urinary tr act infectious disease 66317365 N39.0 [id number] Shani Sexton r [facility] [address],[place] [address] 04/16/2022 14:00:42 04/17/2022 09:50:27 Benign essential hypertension complicating , childbirth and the puerperium - not delivered 463793305 O10.019 [id number] Ele Schwab [facility] [address],[place] [address] 04/16/2022 14:00:55 04/17/2022 09:51:19 Chronic hypertension complicating AND/OR reason for care during 05094360 O16.9 Z3A.32 113162 Ling Veloz CNM [facility] [address],[place] [address] 04/25/2022 13:54:01 04/25/2022 15:59:04 Routine care 547392976 Z34.92 [id number] Larissa Johnson [facility] [address],[place] [address] 04/25/2022 13:55:23 04/25/2022 14:48:22 Chronic hypertension complicating AND/OR reason for care during 89139701 O16.9 Z3A.32 [id number] Annia Carvajal [facility] [address],[place] [address] 05/01/2022 16:02:23 05/02/2022 17:00:09 Routine care 953270836 Z34.93 [id number] Ele Schwab [facility] [address],[place] [address] 05/07/2022 12:00:59 05/07/2022 13:16:26 Chronic hypertension complicating AND/OR reason for care during 79350471 O16.9 Z3A.35 [id number] Mony Hou [facility] [address],[place] [address] 05/07/2022 12:01:20 05/07/2022 14:18:38 Benign essential hypertension complicating AND/OR reason for care during 14684180 O10.019 [id number] Ling Veloz [facility] [address],[place] [address] 05/07/2022 12:01:36 05/07/2022 13:45:20 Routine care 008562051 Z34.92 [id number] Ele Schwab [facility] [address],[place] [address] 05/14/2022 13:47:03 05/14/2022 14:31:48 Chronic hypertension complicating AND/OR reason for care during 20820552 O16.9 Z3A.36 [id number] Shani Sexton [facility] [address],[place] [address] 05/14/2022 13:47:30 05/14/2022 16:48:52 Benign essential hypertension complicating , childbirth and the puerperium - not delivered 490903632 O10.019 [id number] Ling Veloz [facility] [address],[place] [address] 05/14/2022 13:48:56 05/14/2022 16:07:43 Routine care 210450641 Z34.92 [id number] Shani Sexton [facility] [address],[place] [address] 05/21/2022 16:53:30 05/22/2022 14:44:35 Benign essential hypertension complicating , childbirth and the puerperium - not delivered 735837813 O10.019 [id number] Terence Wallis MD [facility] [address],[place] [address] 05/21/2022 16:53:45 05/22/2022 14:56:51 Routine care 553722431 Z34.92 [id number] Larissa Johnson [facility] [address],[place] [address] 05/23/2022 12:31:17 05/23/2022 13:46:24 Benign essential hypertension complicating AND/OR reason for care during 10213277 O10.019 [id number] [facility] [address],[place] [address] 06/04/2022 17:11:20 06/11/2022 17:03:10 Postoperative visit 865823733 Z09 [id number] [facility] [address],[place] [address] 06/11/2022 15:27:00 06/11/2022 16:03:35 Migraine 40473429 G43.909 take 1-2 call if does not resolve Infection of skin 294177 000 L08.9 ampicillin per culture, f/u 2 weeks precaution s reviewed [id number] [facility] [address],[place] [address] 06/25/2022 17:17:54 06/25/2022 18:54:38 Pain in pelvis 94373001 R10.2 [id number] Ele Schwab [facility] [address],[place] [address] 06/25/2022 18:20:59 06/25/2022 18:47:05 Pain in pelvis 63422931 R10.2 [id number] Terence Wallis MD [facility] [address],[place] [address] 07/04/2022 12:09:49 07/04/2022 13:21:07 Mixed anxiety and depressive disorder 020029015 F41.8 This patient is a 32-year-ol d [...] in 4 weeks for impression Postoperative care 51850 9007 Z48.89 [id number] Terence Wallis MD [facility] [address],[place] [address] 07/18/2022 11:40:22 07/18/2022 12:35:14 depression 67887727 F53.0 this patient is a 32-year-ol d female presents for follow-up on depression . She is doing well. Her mood is much improved. She notices appreciabl e difference . She has a little bit of shakiness or tremor -like feeling. Technicall y not tremor. given reassuranc e. Overall very satisfied, she will return in 3 months. Her baby is doing well. [id number] Terence Wallis MD [facility] [address],[place] [address] 08/01/2022 13:58:06 08/01/2022 14:49:50 depression 66364828 F53.0 this patient is a 32-year-ol d [...] contact us for any Worsening of mood. [id number] Terence Wallis MD [facility] [address],[facility] [address] 04/06/2023 13:59:17 04/06/2023 14:52:13 Gynecologic examination 05346262 Z01.419 Annual gynecologi terese exam performed. Patient [...] ordered Pap - today Hidradenit is suppurativa 80402916 L73.2 Pain in pelvis 00292377 R10.2 week ultrasound intake this up another appointmen t. [id number] Terence Wallis MD [facility] [address] [address] 01/26/2024 09:26:57 01/26/2024 10:39:49 Breast infection 159313650 N61.0 this patient is a 34-year-ol d [...] [place] Member ID Guarantor Name 07/04/2022 1 [facility] ON OR AFTER 05/30/21 (MEDICAID REPLACEMENT - HMO) Gurjit Charles [id number] Gurjit Charles 07/18/2022 1 [facility] ON OR AFTER 05/30/21 (MEDICAID REPLACEMENT - HMO) Gurjit Charles [id number] Gurjit Charles 08/01/2022 1 [facility] ON OR AFTER 05/30/21 (MEDICAID REPLACEMENT - HMO) Gurjit Charles [id number] Gurjit Charles 04/06/2023 1 [facility] ON OR AFTER 05/30/21 (MEDICAID REPLACEMENT - HMO) Gurjit Charles [id number] Gurjit Charles 01/26/2024 1 [employer] [id number] Gurjit Charles [id number] Gurjit Charles Notes Date Note Type [...] impression Terence Wallis MD [address], [place], [address], [facility] 07/04/2022 13:20:27 07/18/2022 text/html this patient [...] well. Terence Wallis MD [address], [place], [address], [facility] 07/18/2022 12:28:18 08/01/2022 text/html this patient [...] mood. Terence Wallis MD [address], [place], [address], [facility] 08/01/2022 14:29:40 04/06/2023 text/html Annual GYNReport [...] exercise Terence Wallis MD [address], [place], [address], [facility] 04/06/2023 14:49:21 01/26/2024 text/html this patient [...] after antibiotic treatment. We spent 20 minutes [id number]. More than 50% was counseling. Breasts were examined. Terence Wallis MD [address], [place], [address], [facility] 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 [employer] on 02/12, 03/12, 04/09 [employer], 04/25 u/s only, 05/21 u/s and NPM sent labs elevated WBC to pcp Dr Pritchett - pcp sending pt to Hepatology & pt to follow up with rheumatology review elevated CBC per [facility] Problem Name Start Date End Date Resolution Snomed Code Not e Chronic pain 43501253 rheumat ology consult, stop diclofenac, Bilateral Feet - compression stockings and supportive shoes Obesity 343694194 36 wk ante testing with BPP and growth u/s; NEEDS NUTRITION COUNSELING PER MF WE ARE TO REFER! RhD negative 446508966 Rhogam 03/13 Finding of growth 03/24/2022 324018203 Level II on 04/04 r/t 3.7% growth on 03/24 Liver function tests outside reference range 556275021 [facility] Group B Streptococcus carrier [id number] abx labor Fibromyalgia MEDICATION 590632804 MFM re c gabapentin 300mg TID, stopped diclofenac, declines PT referral at this time, pain management referral Tobacco user 791101415 1ppd, e ncouraged cessation, discussed risks Benign essential hypertension complicating , childbirth and the puerperium - not delivered baseline PIH l abs & 24 hour urine (01/24 PCR WNL, AST 20, ALT 32(H)), ASA 162mg no anticoag per [facility], testing BPP 32wks Delmy thyroiditis 04776642 sees endo Dr. Chong, thyroid u/s, 01/24 - stable, TSH WNL, serial growth u/s, ASA, thyroid fxn qtrimeter needs in 3rd tri Mixed anxiety and depressive disorder 198423010 no meds currently Ed Calculation Initial Ed [...] Date Ultra Sound Latest Days Gestation 0 [email or web address] 11/26/2021 06/09/20 22 0 Pre-pop Flowsheet Flowsheet [...] Weight in lbs Pre/Post Dialysis Refused Weight 228.273540863602 BP Diastolic BP Location Tested BP Systolic [...] Present Fetus Movement Comments Flowsheet Date 01/06/2022 Ramachandarn Score Blood Edema Fundus Height Fundus Units Glucose Ketones Leukocytes Nitrite Labor Signs Protein Cervic Dilation Cervic Effacement Cervic Station neg trace trace Type Weight in lbs Pre/Post Dialysis Refused Weight [id number] BP Diastolic BP Location Tested BP Systolic [...] Weight in lbs Pre/Post Dialysis Refused Weight 242.405849433414 BP Diastolic BP Location Tested BP Systolic [...] Weight in lbs Pre/Post Dialysis Refused Weight 239.457362362468 BP Diastolic BP Location Tested BP Systolic BP Type 77 L arm 120 sitting Fetus Heart Rate Present A 145 Fetus Movement Comments Discussed growth concerns , discussed flank pain -episode of severe right-sided flank pain. , patient has some plantar fasciitis that she is being observed for and treated. Is seeing neonatologist today. Has fibromyalgia. Blood pressure stable Flowsheet [...] Weight in lbs Pre/Post Dialysis Refused Weight 243.121968994089 BP Diastolic BP Location Tested BP Systolic [...] to discontinue d/t risks in .April 09 [facility] visit and Dr Houston (cancer doctor for increased wbc). F/U with Dr Chong on April 23. TSH drawn 2 weeks ago. Flowsheet Date 04/08/2022 Ramachandran Score Blood Edema Fundus Height Fundus Units Glucose Ketones Leukocytes Nitrite Labor Signs Protein Cervic Dilation Cervic Effacement Cervic Station neg trace 31 none trace Type Weight in lbs Pre/Post Dialysis Refused Weight 250.662479755870 BP Diastolic BP Location Tested BP Systolic BP Type 76 117 Fetus Heart Rate Present A 140 Fetus Movement A Yes Comments Discomfort with urination. P t does have 2+ leuks. SP tenderness. Will treat with macrobid. Will schedule testing tomorrow.[facility] visit with ultrasound scheduled on 04-25. Flowsheet Date 04/16/2022 Ramachandran Score Blood Edema Fundus Height Fundus Units Glucose Ketones Leukocytes Nitrite Labor Signs Protein Cervic Dilation Cervic Effacement Cervic Station Type Weight in lbs Pre/Post Dialysis Refused Weight 248.267667673864 BP Diastolic BP Location Tested BP Systolic [...] Weight in lbs Pre/Post Dialysis Refused Weight 249.274211450699 BP Diastolic BP Location Tested BP Systolic [...] Weight in lbs Pre/Post Dialysis Refused Weight 249.667322053352 BP Diastolic BP Location Tested BP Systolic [...] was drawn. Will have ob nurse contact [facility] to see if they want the t4. BW left a message with [facility]. Flowsheet Date 05/01/2022 Ramachandran Score Blood [...] Weight in lbs Pre/Post Dialysis Refused Weight 248.171829785836 BP Diastolic BP Location Tested BP Systolic [...] Weight in lbs Pre/Post Dialysis Refused Weight 251.18208544931 BP Diastolic BP Location Tested BP Systolic [...] Weight in lbs Pre/Post Dialysis Refused Weight 245.121836589009 BP Diastolic BP Location Tested BP Systolic [...] Weight in lbs Pre/Post Dialysis Refused Weight 232.24359463588 BP Diastolic BP Location Tested BP Systolic BP Type 67 114 Fetus Heart Rate Present Fetus Movement Comments Flowsheet Date 06/11/2022 Ramachandran Score Blood Edema Fundus Height Fundus Units Glucose Ketones Leukocytes Nitrite Labor Signs Protein Cervic Dilation Cervic Effacement Cervic Station Type Weight in lbs Pre/Post Dialysis Refused Weight 230.591161555546 BP Diastolic BP Location Tested BP Systolic BP Type 89 135 Fetus Heart Rate Present Fetus Movement Comments Flowsheet Date 06/25/2022 Ramachandran Score Blood Edema Fundus Height Fundus Units Glucose Ketones Leukocytes Nitrite Labor Signs Protein Cervic Dilation Cervic Effacement Cervic Station Type Weight in lbs Pre/Post Dialysis Refused Weight 224.496492760417 BP Diastolic BP Location Tested BP Systolic [...] Estim ated Date of Delivery false Thalassemia (Welsh, Palauan, Mediterranean, Or Background): MCV < 80 false Neural Tube Defect (Meningomyelocele, Spina Bifi da, Or Anencephaly) false Congenital Heart Defect false Down Syndrome false Bharath-Sachs (eg, Methodist, Cajun, Kiswahili-[place]) f alse Jerson Disease false Sickle Cell [...]
--- OUTSIDE RECORDS SUMMARY | 2025-03-23 14:25 | XMS_ITS | Continuity of Care Document ---
Author Organization [facility] Address [address] [place] [address] [place] [address] Phone Care Team Providers Care Automatic Glove Former Name Role Phone Leonardo Cantu MD Unavailable [...] Copied on Encounter Office/outpat ient Visit, [facility], [address] [place] [address] [address], [place], [place], [id number], [place] tel:[phone] SEC Ganesh [place] Professional Follow up visit (chief complaint) Corneal scar, left eyeForeign body of left cornea, subsequent encounter Oct-0 201 9 Pepe Patterson. [address] [facility], [address], [place], [place], [id number], [place]. tel:[phone] Referring Provider: Oswaldo Cast, [address] [place] [address] [address] [facility], [place], [address]. tel:[phone] Office/outpat ient Visit, [facility], [address] [place] [address] [address], [place], [place], [id number], tel:[phone] CELINE MARINELLI Professional evaluation (chief complaint) Foreign body of left cornea, initial encounter Aug-0 9 Nuris Chacon. [address] [facility], [address], [place], [address], [place]. tel:[phone] Family History Family Member Type Diagnosis Age At Onset Problem (finding) Family history of Diabe john mellitus Payers Payer name Insurance type Covered republican ID Authoriza tion(s) No Information Social History [...]
--- OUTSIDE RECORDS SUMMARY | 2025-03-23 14:25 | XMS_ITS | Data Portability ---
Author Organization [facility] Address [address] [place] [address] Care Team Providers Care Senior Test Engineer Name Role Phone NICK ALBRIGHT Primary Care Provider Assessment No assessment recorded. Plan of Treatment Reminders Order Date Submit Date Provider Last Modified By Organization Details Last Modified Time Details Appointments None recorded. Lab TSH + free T4, serum 2024 025 [facility], [address] [place] [address], [address], 16:16:42 thyroperoxi dase Ab, serum 2024 025 [facility], [address] [place] [address], [address], 17:16:20 WILBERTO + rf (antinuclea r antibodies + rheumatoid factor), quantitativ e, serum 2024 025 [facility], [address] [place] [address], [place], [address], 19:24:36 CBC 2024 025 [facility], [address] [place] [address], [address], 5 00:07:35 CMP, serum or plasma 2024 025 [facility], [address] [place] [address] 2, [place], [address], 00:07:35 lipid panel, serum 2024 [facility], [address] [facility], [facility] [address], [place], [address], 00:07:35 Referral None recorded. Procedures None recorded. Surgeries None recorded. Imaging XR, shoulder 2024 [facility] ([facility]) Scheduling, [address] [place], [address], 13:16:54 Medication Orders rosuvastati n 5 mg tablet 2024 [facility], [address] [place] [address], [address], 15:37:19 celecoxib 200 mg capsule 2024 [facility], [address] [place] [address], [address], 15:05:56 Patient TargetsNo targets recorded. Patient Instructions Encounter Date Encounter Id Patient Instructions Last Modified By Organization Details Last Modified Time 02/10/2025 [id number] A healthy lifestyle: care instructions anney Not available 02/10/2025 16:34:28 03/03/2025 [id number] A healthy lifestyle: care instructions jnanney Not available 03/03/2025 15:37:13 Reason for Referral None Reported. Results Created Date Observation Date Name Description Value Unit Range Abnormal Flag Note LastModifiedBy Organization Detail LastModifiedTime 02/17/2002/16/2025 Rheum atoid facto r [Unit s/vol ume] in Serum or Plasm a rheumatoid factor [units/volum e] in serum or plasma text: <30 IU/mL RHEUM ATOID FACTO R QT <13 <30 IU/mL 02/16 4:58 PM CDT [facility] Not Available Not Available 03/01/2025 17:33:23 02/17/20 25 02/16/2025 Rheum atoid facto r [Unit s/vol ume] in Serum or Plasm a Unknown Analyte RHEUMA TOID FACTOR S CAN BE FOUND IN RHEUMA TOID ARTHRI TIS, SYPHIL IS, VIRAL INFECT IONS, LEPROS Y, CHRONI C LIVER DISEAS E, NEOPLA SMS, AND OTHER INFLAM MATORY CONDIT IONS. RF PREVAL ENCE ALSO INCREA SES WITH AGE. THUS A POSITI VE TEST IS NOT RESTRI CTED TO RA. CONVER SELY, A NEGATI VE TEST DOES NOT RULE OUT RA, RHEUMA TOID FACTOR S ARE NOT DETECT ABLE IN 10% OF ADULTS WITH THE DISEAS E. RHEUM ATOID FACTO RS CAN BE FOUND IN RHEUM ATOID ARTHR ITIS, SYPHI LIS, VIRAL INFEC TIONS , LEPRO SY, CHRON IC LIVER DISEA SE, NEOPL ASMS, AND OTHER INFLA MMATO RY CONDI TIONS . RF PREVA LENCE ALSO INCRE ASES WITH AGE. THUS A POSIT BHARATI TEST IS NOT RESTR ICTED TO RA. CONVE RSELY , A NEGAT BHARATI TEST DOES NOT RULE OUT RA, RHEUM ATOID FACTO RS ARE NOT DETEC TABLE IN 10% OF ADULT S WITH THE DISEA SE. Not Available Not Available 03/01/2025 17:33:23 02/17/20 25 02/16/2025 Rheum atoid facto r [Unit s/vol ume] in Serum or Plasm a interpretati on and review of laboratory results Normal Not Available Not Available 12/2024 17:33:23 02/17/20 25 02/16/2025 Lipid 1995 panel - Serum or Plasm a cholesterol [mass/volume ] in serum or plasma 204 mg/dL high: 200mg/ dL high ALEX STERO L 204 (H) <200 mg/dL 02/16 4:58 PM CDT [facility] Not Available Not Available 03/01/2025 17:33:23 02/17/20 25 02/16/2025 Lipid 1996 panel - Serum or Plasm a triglyceride [mass/volume ] in serum or plasma 88 mg/dL high: 150mg/ dL TRIGL YCERI ISIDRO 88 <150 mg/dL 02/16 4:58 PM CDT [facility] Not Available Not Available 03/01/2025 17:33:23 02/17/20 25 02/16/2025 Lipid 1996 panel - Serum or Plasm a cholesterol in HDL [mass/volume ] in serum or plasma 44 mg/dL low: 40mg/d L HDL ALEX STERO L 44 >40 mg/dL 02/16 4:58 PM CDT [facility] Not Available Not Available 03/01/2025 17:33:23 02/17/20 25 02/16/2025 Lipid 1996 panel - Serum or Plasm a cholesterol in LDL [mass/volume ] in serum or plasma 142 mg/dL high: 130mg/ dL high LDL 142 (H) <130 mg/dL 02/16 4:58 PM CDT [facility] Not Available Not Available 03/01/2025 17:33:23 02/17/20 25 02/16/2025 Lipid 1996 panel - Serum or Plasm a cholesterol in VLDL [mass/volume ] in serum or plasma 18 mg/dL low: 10mg/d Lhigh: 50mg/d L VLDL 18 10 - 50 mg/dL 02/16 4:58 PM CDT [facility] Not Available Not Available 03/01/2025 17:33:23 02/17/20 25 02/16/2025 Lipid 1996 panel - Serum or Plasm a cholesterol. total/choles terol in HDL [mass ratio] in serum or plasma 4.6 low: 0high: 4.4 high CHOL/ HDL RATIO 4.6 (H) 0.0 - 4.4 02/16 4:58 PM CDT [facility] Not Available Not Available 03/01/2025 17:33:23 02/17/20 25 02/16/2025 Lipid 1996 panel - Serum or Plasm a cholesterol non HDL [mass/volume ] in serum or plasma 160 mg/dL high: 130mg/ dL high NON-H DL ALEX STERO L 160 (H) <130 mg/dL 02/16 4:58 PM CDT [facility] Not Available Not Available 03/01/2025 17:33:23 03/20/20 25 02/16/2025 Lipid 1996 panel - Serum or Plasm a IS the patient required to BE fasting? Yes IS THE PATIE NT REQUI RED TO BE FASTI NG? Yes 02/16 4:58 PM CDT [facility] Not Available Not Available 03/01/2025 17:33:23 02/17/20 25 02/16/2025 Lipid 1996 panel - Serum or Plasm a has the patient been fasting? Yes HAS THE PATIE NT BEEN FASTI NG? Yes 02/16 4:58 PM CDT [facility] Not Available Not Available 03/01/2025 17:33:23 02/17/20 25 02/16/2025 Lipid 1996 panel - Serum or Plasm a interpretati on and review of laboratory results Abnorm al Not Available Not Available 17:33:23 02/17/20 25 02/16/2025 CBC panel - Blood by Autom ated count leukocytes [#/volume] in blood by automated count 10.07 text: 4.00 - 12.00 10(3)/ mcL WBC 10.07 4.00 - 12.00 10(3) /mcL 02/16 4:56 PM CDT [facility] Not Available Not Available 03/01/2025 17:33:23 02/17/20 25 02/16/2025 CBC panel - Blood by Autom ated count erythrocytes [#/volume] in blood by automated count 4.61 text: 3.80 - 5.30 10(6)/ mcL RBC 4.61 3.80 - 5.30 10(6) /mcL 02/16 4:56 PM CDT [facility] Not Available Not Available 03/01/2025 17:33:23 02/17/20 25 02/16/2025 CBC panel - Blood by Autom ated count hemoglobin [mass/volume ] in blood 14.7 g/dL low: 12g/dL high: 15.8g/ dL HEMOG LOBIN (HGB) 14.7 12.0 - 15.8 g/dL 02/16 4:56 PM CDT [facility] Not Available Not Available 03/01/2025 17:33:23 02/17/20 25 02/16/2025 CBC panel - Blood by Autom ated count hematocrit [volume fraction] of blood by automated count 43.3 % low: 36%hig h: 47% HEMAT OCRIT (HCT) 43.3 36.0 - 47.0 % 02/16 4:56 PM CDT [facility] Not Available Not Available 03/01/2025 17:33:23 02/17/20 25 02/16/2025 CBC panel - Blood by Autom ated count MCV [entitic mean volume] in red blood cells by automated count 93.9 fL low: 82fLhi gh: 96fL MCV 93.9 82.0 - 96.0 fL 02/16 4:56 PM CDT [facility] Not Available Not Available 03/01/2025 17:33:23 02/17/20 25 02/16/2025 CBC panel - Blood by Autom ated count MCH [entitic mass] by automated count 31.9 pg low: 26pghi gh: 34pg MCH 31.9 26.0 - 34.0 pg 02/16 4:56 PM CDT [facility] Not Available Not Available 03/01/2025 17:33:23 02/17/20 25 02/16/2025 CBC panel - Blood by Autom ated count MCHC [entitic mass/volume] in red blood cells by automated count 33.9 g/dL low: 31g/dL high: 36g/dL MCHC 33.9 31.0 - 36.0 g/dL 02/16 4:56 PM CDT [facility] Not Available Not Available 03/01/2025 17:33:23 02/17/20 25 02/16/2025 CBC panel - Blood by Autom ated count platelets [#/volume] in blood 241 text: 140 - 440 10(3)/ mcL PLATE LET COUNT 241 140 - 440 10(3) /mcL 02/16 4:56 PM CDT [facility] Not Available Not Available 03/01/2025 17:33:23 02/17/20 25 02/16/2025 CBC panel - Blood by Autom ated count erythrocyte [distwidth] in red blood cells by automated count 12.1 % low: 11.8%h igh: 15.5% RDW 12.1 11.8 - 15.5 % 02/16 4:56 PM CDT [facility] Not Available Not Available 03/01/2025 17:33:23 02/17/20 25 02/16/2025 CBC panel - Blood by Autom ated count platelet [entitic mean volume] in blood by automated count 10.1 fL low: 9.7fLh igh: 12.4fL MPV 10.1 9.7 - 12.4 fL 02/16 4:56 PM CDT [facility] Not Available Not Available 03/01/2025 17:33:23 02/17/20 25 02/16/2025 CBC panel - Blood by Autom ated count interpretati on and review of laboratory results Normal Not Available Not Available 12/2024 17:33:23 02/17/20 25 02/16/2025 Compr ehens bharati metab olic 1999 panel - Serum or Plasm a sodium [moles/volum e] in serum or plasma 135 mmol/ L low: 136mmo l/Lhig h: 145mmo l/L low SODIU M 135 (L) 136 - 145 mmol/ L 02/16 4:58 PM CDT [facility] Not Available Not Available 03/01/2025 17:33:23 02/17/20 25 02/16/2025 Compr ehens bharati metab olic 1999 panel - Serum or Plasm a potassium [moles/volum e] in serum or plasma 3.9 mmol/ L low: 3.5mmo l/Lhig h: 5.1mmo l/L POTAS SIUM 3.9 3.5 - 5.1 mmol/ L 02/16 4:58 PM CDT [facility] Not Available Not Available 03/01/2025 17:33:23 02/17/20 25 02/16/2025 Compr ehens bharati metab olic 1999 panel - Serum or Plasm a chloride [moles/volum e] in serum or plasma 104 mmol/ L low: 98mmol /Lhigh : 107mmo l/L CHLOR VERONA 104 98 - 107 mmol/ L 02/16 4:58 PM CDT [facility] Not Available Not Available 03/01/2025 17:33:23 02/17/20 25 02/16/2025 Compr ehens bharati metab olic 1999 panel - Serum or Plasm a carbon dioxide, total [moles/volum e] in serum or plasma 23 mmol/ L low: 22mmol /Lhigh : 30mmol /L CO2, VENOU S 23 22 - 30 mmol/ L 02/16 4:58 PM CDT [email or web address] Not Available Not Available 03/01/2025 17:33:23 02/17/20 25 02/16/2025 Compr ehens bharati metab olic 1999 panel - Serum or Plasm a anion gap in serum or plasma by calculation 11.9 mmol/ L high: 18mmol /L ANION GAP 11.9 <18.0 mmol/ L 02/16 4:58 PM CDT [facility] Not Available Not Available 03/01/2025 17:33:23 02/17/20 25 02/16/2025 Compr ehens bharati metab olic 1999 panel - Serum or Plasm a glucose [mass/volume ] in serum or plasma 85 mg/dL low: 70mg/d Lhigh: 99mg/d L GLUCO SE 85 70 - 99 mg/dL 02/16 4:58 PM CD[email or web address] R LAB Not Available Not Available 03/01/2025 17:33:23 02/17/20 25 02/16/2025 Compr ehens bharati metab olic 2000 panel - Serum or Plasm a urea nitrogen [mass/volume ] in serum or plasma 10 mg/dL low: 5mg/dL high: 18mg/d L BUN 10 5 - 18 mg/dL 02/16 4:58 PM CDT [facility] Not Available Not Available 03/01/2025 17:33:23 02/17/20 25 02/16/2025 Compr [employer] bharati metab olic 2000 panel - Serum or Plasm a creatinine [mass/volume ] in serum or plasma 0.81 mg/dL low: 0.6mg/ dLhigh : 1mg/dL CREAT ININE , BLOOD 0.81 0.60 - 1.00 mg/dL 02/16 4:58 PM CDT [facility] Not Available Not Available 03/01/2025 17:33:23 02/17/20 25 02/16/2025 Compr [employer] bharati metab olic 2000 panel - Serum or Plasm a urea nitrogen/cre atinine [mass ratio] in serum or plasma 12 text: 12 - 20 ratio BUN/C REATI NINE RATIO 12 12 - 20 ratio 02/16 4:58 PM CDT [facility] Not Available Not Available 03/01/2025 17:33:23 02/17/20 25 02/16/2025 Compr [employer] bharati metab olic 2000 panel - Serum or Plasm a protein [mass/volume ] in serum or plasma 7 g/dL low: 6g/dLh igh: 8g/dL TOTAL PROTE IN 7.0 6.0 - 8.0 g/dL 02/16 4:58 PM CDT [facility] Not Available Not Available 03/01/2025 17:33:23 02/17/20 25 02/16/2025 Compr [employer] bharati metab olic 2000 panel - Serum or Plasm a albumin [mass/volume ] in serum or plasma 4.1 g/dL low: 3.5g/d Lhigh: 5g/dL ALBUM IN 4.1 3.5 - 5.0 g/dL 02/16 4:58 PM CDT [facility] Not Available Not Available 03/01/2025 17:33:23 02/17/20 25 02/16/2025 Compr ehens bharati [employer] [facility] 1999 panel - Serum or Plasm a albumin/glob ulin [mass ratio] in serum or plasma 1.4 low: 1high: 2.2 A/G RATIO 1.4 1.0 - 2.2 02/16 4:58 PM CDT [facility] Not Available Not Available 03/01/2025 17:33:23 02/17/20 25 02/16/2025 [facility] 1999 panel - Serum or Plasm a calcium [mass/volume ] in serum or plasma 8.8 mg/dL low: 8.7mg/ dLhigh : 10.5mg /dL CALCI UM 8.8 8.7 - 10.5 mg/dL 02/16 4:58 PM CDT [facility] Not Available Not Available 03/01/2025 17:33:23 02/17/20 25 02/16/2025 Compr [facility] bharati metab [facility] 1999 panel - Serum or Plasm a bilirubin.to yajaira [mass/volume ] in serum or plasma 0.4 mg/dL low: 0.2mg/ dLhigh : 1.2mg/ dL T BILI 0.4 0.2 - 1.2 mg/dL 02/16 4:58 PM CDT [facility] Not Available Not Available 03/01/2025 17:33:23 02/17/20 25 02/16/2025 Compr Savveo bharati metab olic 1999 panel - Serum or Plasm a aspartate aminotransfe rase [enzymatic activity/vol ume] in serum or plasma 17 U/L high: 43U/L SGOT (AST) 17 <43 U/L 02/16 4:58 PM CDT [facility] Not Available Not Available 03/01/2025 17:33:23 02/17/20 25 02/16/2025 Compr [employer] bharati metab olic 1999 panel - Serum or Plasm a alanine aminotransfe rase [enzymatic activity/vol ume] in serum or plasma 15 U/L high: 56U/L SGPT (ALT) 15 <56 U/L 02/16 4:58 PM CDT [facility] Not Available Not Available 03/01/2025 17:33:23 02/17/20 25 02/16/2025 Compr ehens bharati metab olic 2000 panel - Serum or Plasm a alkaline phosphatase [enzymatic activity/vol ume] in serum or plasma 54 U/L low: 40U/Lh igh: 150U/L ALKAL INE PHOSP HATAS E 54 40 - 150 U/L 02/16 4:58 PM CDT [facility] Not Available Not Available 03/01/2025 17:33:23 02/17/20 25 02/16/2025 Compr ehens bharati metab olic 2000 panel - Serum or Plasm a IS the patient required to BE fasting? No IS THE PATIE NT REQUI RED TO BE FASTI NG? No 02/16 4:58 PM CDT [facility] Not Available Not Available 03/01/2025 17:33:23 02/17/20 25 02/16/2025 Compr ehens bharati metab olic 2000 panel - Serum or Plasm a glomerular filtration rate [volume rate/area] in serum, plasma or blood by creatinine-b ased formula (CKD-epi 2020)/1.73 sq M low: 60 GFR, ESTIM ATED >60 >=60 02/16 4:58 PM CDT [facility] Not Available Not Available 03/01/2025 17:33:23 02/17/20 25 02/16/2025 Compr ehens bharati metab olic 2000 panel - Serum or Plasm a glomerular filtration rate [volume rate/area] in serum, plasma or blood by creatinine-b ased formula (MDRD)/1.73 sq M among black population low: 60 GFR, EST. AFRIC AN >60 >=60 02/16 4:58 PM CDT [facility] Not Available Not Available 03/01/2025 17:33:23 02/17/20 25 02/16/2025 Compr ehens bharati metab olic 2000 panel - Serum or Plasm a glomerular filtration rate [volume rate/area] in serum, plasma or blood by creatinine-b ased formula (MDRD)/1.73 sq M among non black population low: 60 GFR, EST. NONAF RICAN >60 >=60 02/16 4:58 PM CDT [facility] Not Available Not Available 03/01/2025 17:33:23 02/17/20 25 02/16/2025 Compr ehens bharati metab olic 2000 panel - Serum or Plasm a interpretati on and review of laboratory results Abnorm al Not Available Not Available 17:33:23 02/17/20 25 02/17/2025 Nucle ar Ab [Tite r] in Serum nuclear Ab [titer] in serum Negati ve text: negati ve titer WILBERTO SCREE N Negat bharati Negat bharati titer 02/17 12:24 PM CDT [facility] Not Available Not Available 03/01/2025 17:33:23 02/17/20 25 02/17/2025 Nucle ar Ab [Tite r] in Serum nuclear Ab [titer] in serum Not Applic able text: negati ve, see commen t, not applic able titer WILBERTO TITER Not Appli cable Negat bharati, See comme nt, Not Appli cable titer 02/17 12:24 PM CDT [facility] Not Available Not Available 03/01/2025 17:33:23 02/17/20 25 02/17/2025 Nucle ar Ab [Tite r] in Serum nuclear Ab pattern [interpretat ion] in serum NOT APPLIC ABLE WILBERTO PATTE RN NOT APPLI CABLE 02/17 12:24 PM CDT [facility] Not Available Not Available 03/01/2025 17:33:23 03/03/20 25 03/04/2025 TSH+F REE T4 TSH 1.360 uIU/m L 0.450- 4.500 Not Available [facility] ([facility]) [address] [facility], [place], [address], 03/06/2025 17:16:19 03/03/20 25 03/04/2025 TSH+F REE T4 T4,free(dire ct) 1.37 NG/dL 0.82-1 .77 Not Available [facility] ([facility]) [address] [facility], [place], [address], 03/06/2025 17:16:19 03/03/20 25 03/04/2025 THYRO ID ANTIB ODIES thyroid peroxidase (tpo) Ab 257 IU/mL 0-34 above high normal Not Available [facility] ([facility]) [address] [facility], [place], [address], 03/06/2025 17:16:20 03/03/20 25 03/06/2025 THYRO ID ANTIB ODIES thyroglobuli n antibody <1.0 IU/mL 0.0-0. 9 Thyro globu magalis Antib jose measu red by Beckleslie an Coult er Metho dolog y It shoul d be noted that the prese nce of thyro globu magalis antib odies may not be patho genic nor diagn ostic , espec ially at very low level s. The assay manuf actur er has found that four perce nt of indiv idual s witho ut evide nce of thyro id disea se or autoi mmuni ty will have posit bharati TgAb level s up to 4 IU/mL . Not Available [facility] ([facility]) [address] [facility], [place], [address], 03/06/2025 17:16:20 02/20/20 25 02/16/2025 XR, shoul harleen No observ ation record ed. [facility] (Radiology) [address] [place], [address], 02/20/2025 10:39:30 03/09/20 25 03/09/2025 XR, skull , 4 or more view No observ ation record ed. [address], [place], [address], 03/09/2025 16:31:08 03/10/20 25 03/09/2025 MRI, breas t, bilat eral, w/wo contr ast No observ ation record ed. [address], [place], [address], 03/10/2025 10:07:19 Result Notes None recorded. Problems No Known Problems Procedures Surgical History Date Name Laterality Status Provider Name and Address Organization Details Recorded Time section completed Olga Lidia Byrd MA [place] - [place] 02/10/2025 16:10:21 Imaging Results Imaging Date Name Status LastModified by Organiz ation Details LastModified Time 02/16/2025 XR, shoulder completed [facility] (Radiology) [address] [place], [address], 02/20/2025 10:39:30 03/09/2025 XR, skull, 4 or more view completed [address] [place] [address], [address], 03/09/2025 16:31:08 03/09/2025 MRI, breast, bilateral, w/wo contrast completed [address], [address], 03/10/2025 10:07:19 Procedure Notes None recorded. Medical Equipment None Reported. Allergies No known drug allergies Medications Name Sig Start Date Stop Date Status Note LastModified by Organization Details LastModified Time celecoxib 200 mg capsule TAKE 1 CAPSULE BY MOUTH ONCE DAILY FOR 90 DAYS 03/03 completed Not Available Not Available Not Available atorvastatin 20 mg tablet TAKE 1 TABLET BY MOUTH ONCE DAILY FOR 90 DAYS 03/03 completed Not Available Not Available Not Available rosuvastatin 5 mg tablet Take 1 tablet every day by oral route for 90 days. 2024 active Not Available Not Available Not Avai lable Vitals Date Recorded Body weight Body mass index (BMI) Body height Oxygen saturation Oxygen saturation in Arterial blood by Pulse oximetry Heart rate Respiratory rate Systolic blood pressure Diastolic blood pressure Provider Name and Address Organization Details Last Updated DateTime 5 301187. 95 g 38.2 kg/m2 167.64 cm 97 % 97 % 90 /min 16 /min 125 mm[Hg] 85 mm[Hg] Olga Lidia Byrd MA [facility] 16:12:31 Date Recorded Body height Body mass index (BMI) Body weight Oxygen saturation Oxygen saturation in Arterial blood by Pulse oximetry Heart rate Systolic blood pressure Diastolic blood pressure Provider Name and Address Organization Details Last Updated DateTime 167.64 cm 37.8 kg/m2 150862. 61 g 95 % 95 % 94 /min 120 mm[Hg] 82 mm[Hg] Yamilet Hart MA [place] - [facility] 15:09:39 Social History Question Answer Notes LastModified by Organizat ion Details LastModified Time Tobacco Smoking Status Never Smoker Olga Lidia Byrd MA null, [facility] 02/10/2025 16:08:31 What Is Your Level Of [...] available 02/10/2025 What Is Your Occupation? [employer] Information not available 02/10/2025 Are There Any Guns Present In Your Home? No Information not available 02/10/2025 What Was The Date Of Your Most Recent Tobacco Screening? 03/03/2025 Information not available 03/03/2025 What Is Your Relationship Status? Information not available 03/03/2025 Do You Use Your Seat Belt Or Car Seat Routinely? Yes Information not available 02/10/2025 Do You Have Smoke And Carbon Monoxide Detectors In Your Home? Yes Information not available 02/10/2025 Are You Passively Exposed To Smoke? Yes Information no t available 02/10/2025 Do You Feel Stressed (tense, Restless, Nervous, Or Anxious, Or Unable To Sleep At Night)? [id number] Information not available 02/10/2025 Do You Use Any Illicit Or Recreational Drugs? No Information not available 02/10/2025 Do You Use Sunscreen Routinely? Yes Information not available 02/10/2025 Has Tobacco Cessation Counseling Been Provided? No Information not available 03/03/2025 Do You Or Have You Ever Used [...] Eating Disorder N Anemia N Heart Attack ([place]) N Anxiety Disorder Y Diabetes N Muscle, [...] GPAL:G 0 P 0 0 0 0 Immunizations Vaccine Type Date Status Note Provider Alexx pedraza and Address Organization Details Recorded Time Tdap 05/29/2022 completed Yamilet Hart MA [facility] 02/17/2025 11:05:02 Past Encounters Encounter ID Performer Location Encounter Start Date Encounter Closed Date Diagnosis/Indication Diagnosis SNOMED-CT Code Diagnosis ICD10 Code Diagnosis Note [id number] Nick Albright PA-C [facility] [address] [place] [address] 02/10/2025 15:50:57 02/14/2025 09:47:47 Pain of right shoulder joint 9607052474 0659088 M25.511 Osteoarthritis 967808939 M15.0 Degenerati ve joint disease involving multiple joints 068629316 M15.9 Overweight 999513634 E66 .3 [id number] Nick Albright PA-C [facility] [address] [place] [address] 03/03/2025 14:48:35 03/06/2025 16:33:50 Mixed hyperlipidemia 666727477 E78.2 will try rosuvastat in instead Pain of ri ght shoulder joint 6458228328 6680981 M25.511 will DC celebrex will start ibuprophen instead 600 mg 3 times daily.. 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 862409744 E06.3 Health Concerns Section Related Observation LastModified by Organization Detai ls LastModified Time None Recorded Concern Status LastModified by Organization Details LastModified Time None Recorded Advance Directives Directive None Recorded Payers Encounter Date Sequence Insurance Name Policy Number Policy Monterroso Covered Member ID Monterroso Member ID Guarantor Name 02/10/2025 1 [place] [id number] 1 Patrica Charles [id number] Gurjit Charles 03/03/2025 1 [place] [id number] 1 Patrica Charles [id number] Gurjit Charles Notes Date Note Type Note Provider Name and Address Organization Details Recorded Time 02/10/2025 text/html no pcp in awhile...rt shoulder pain..arthritic? 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
--- OUTSIDE RECORDS SUMMARY | 2025-03-23 14:25 | XMS_ITS | Referral Summary ---
Author Organization [facility] Address 1 [place] [address] Care Team Providers Care Housing Relocation Name Role Phone Juan Pritchett MD Primary Care Provider Makenzie Choi NP Unavailable [phone] Donnie Barcenas MD Unavailable [phone] Maryellen Chong MD Unavailable Mateusz Reed MD Unavailable [phone] Gonzalo Houston MD Unavailable [phone] Terence Wallis MD Unavailable [phone] Allergies No known active allergies Medications [...] - got worse during and saw a medical secretary teacher - Neil only one and got steroid [...] PCP. 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 Presentation and PMH reviewed. Alen BROWNFIELD REDEVELOPMENT SPECIALIST from ED called after patient seen today [...] - now wants referral to a different Object Oriented Developer - states nothing is being taken and [...] tolerated Assessment & Plan (11/12/2021 3:00 PM UKE OPERATOR): Wt Readings from Last 3 Encounters: 11/12/21 [...] resources Assessment & Plan (11/12/2021 2:59 PM UKE OPERATOR): - chronic, improved - has history of [...] resources Assessment & Plan (11/12/2021 3:01 PM UKE OPERATOR): - chronic, improved but not at goal [...] but was discharged - she had another edi programmer who agreed with initial assessment - she [...] but was discharged - she had another edi programmer who agreed with initial assessment - she also has hx of anxiety and depression - currently on Gabapentin 300mg TID - being prescribed by her neurologist - continue current management Assessment & Plan (03/13/2022 2:22 PM CDT): - chronic, improved - she has been seen by Rheumatology in past but was discharged - she had another edi programmer who agreed with initial assessment - she also has hx of anxiety and depression - currently on Gabapentin 300mg TID - being prescribed by her neurologist - at this time doing well off her medications in - continue staying off medications if doing well Assessment & Plan (11/12/2021 2:58 PM UKE OPERATOR): - chronic, improved - she has been [...] 08/19/2021 Assessment & Plan (11/12/2021 2:57 PM UKE OPERATOR): - chronic, stable - noted on 08/20 [...] - now wants referral to a different Object Oriented Developer - states nothing is being taken and [...] 12/28/2020 Overview (03/23/2023): Follows with Heme/Onc at [facility] Assessment & Plan (03/17/2022 [...] . Assessment & Plan (11/12/2021 2:56 PM UKE OPERATOR): Social History Tobacco Use Smoking Status Current [...] often do you attend chur ch or evangelical services? Never 07/06/2022 Do you belong to any clubs o r organizations such as jain groups, unions, fraternal or athletic groups, or [...] staff should administer the PHQ-9) 0 03/16/2023 [facility] - Occupational Stress Questionnaire Answer Date [...] place to sleep or slept in a mcfp (including now)? No 07/06/2022 Personal Safety Answer Date Recorded Getting School Help Needed Not on file 01/26 Comments No Sex and Gender Information Value Date Recorded Sex Assigned at Not on file Legal Sex Female 9:22 AM UKE OPERATOR Gender Identity Female 10/09/2021 6:35 AM UKE OPERATOR Sexual Orientation Bisexual 10/09/2021 6: 35 AM UKE OPERATOR Last Filed Vital Signs Vital Sign Reading Time Taken Comments Blood Pressure 110/72 03/16/2023 3:06 PM CDT Pulse 96 03/16/2023 3:06 PM CDT Temperature 36.4 C (97.6 F) 02/18/2023 10:42 AM CDT Respiratory Rate 18 11/29/2022 5:02 AM UKE OPERATOR Oxygen Saturation 98% 03/16/2023 3:06 PM CDT Inhaled Oxygen Concentration - - Weight 103 kg (227 lb) 03/16/2023 3:06 PM CDT Height 170.2 cm (5' 7 ) 03/16/2023 3:06 PM CDT Body Mass Index 35.55 03/16/2023 3:06 PM CDT Plan of Treatment Not on file Insurance [facility] Advance Directives For more information, please contact: [phone] * Full Code (Latest Code Status on File) Date Activated Date Inactivated Comments 07/05/2022 4:31 PM 07/07/2022 6:20 PM Care Teams Housing Relocation Relationship Specialty Start Date End Date Juan Pritchett MD PCP - General Family Medicine 08/16/21 Makenzie Choi NP [address] [place] [address] Nurse Practitioner Nurse Practitioner 08/16/21 Donnie Barcenas MD [address] [place] [address] Referring Physician Rheumatology 08/16/21 Maryellen Chong MD [address] [place] [address] Referring Physician General Surgery 08/16/21 Mateusz Reed MD [address] [place] [address] Consulting Physician Neurosurgery 08/16/21 Gonzalo Houston MD [address] [place] [address] Medical Oncologist/Hematologis t Hematology and Oncology 12/29/22 Terence Wallis MD [address] [place] [address] Referring Physician Obstetrics and Gynecology 03/23/23
--- OUTSIDE RECORDS SUMMARY | 2025-03-23 14:25 | XMS_ITS | Clinical Summary ---
Author Organization [facility] Address [address] [place] [address] Care Team Providers Care Clubhouse Manager Name Role Phone Juan Pritchett MD Primary Care Provider Makenzie Choi NP Unavailable [phone] Donnie Barcenas MD Unavailable [phone] Maryellen Chong MD Unavailable Mateusz Reed MD Unavailable Gonzalo Houston MD Unavailable [phone] Terence Wallis MD Unavailable [phone] Allergies No known active allergies Medications [...] - got worse during and saw a consulting systems engineer - Neil only one and got steroid [...] PCP. Also following with neuro surgery at [facility], was seen on 01/15 and they are trying to arrange finish painter for patient, having challenges due to [...] bilateral x-rays. Presentation and PMH reviewed. Alen NEUROLOGY DIRECTOR from ED called after patient seen today [...] - now wants referral to a different Micro Paleontologist - states nothing is being taken and [...] tolerated Assessment & Plan (11/12/2021 3:00 PM MANUFACTURING BAKER): Wt Readings from Last 3 Encounters: 11/12/21 [...] resources Assessment & Plan (11/12/2021 2:59 PM MANUFACTURING BAKER): - chronic, improved - has history of [...] resources Assessment & Plan (11/12/2021 3:01 PM MANUFACTURING BAKER): - chronic, improved but not at goal [...] but was discharged - she had another triple drum operator who agreed with initial assessment - she [...] but was discharged - she had another triple drum operator who agreed with initial assessment - she also has hx of anxiety and depression - currently on Gabapentin 300mg TID - being prescribed by her neurologist - continue current management Assessment & Plan (03/13/2022 2:22 PM CDT): - chronic, improved - she has been seen by Rheumatology in past but was discharged - she had another triple drum operator who agreed with initial assessment - she also has hx of anxiety and depression - currently on Gabapentin 300mg TID - being prescribed by her neurologist - at this time doing well off her medications in - continue staying off medications if doing well Assessment & Plan (11/12/2021 2:58 PM MANUFACTURING BAKER): - chronic, improved - she has been [...] 08/19/2021 Assessment & Plan (11/12/2021 2:57 PM MANUFACTURING BAKER): - chronic, stable - noted on 08/20 [...] - now wants referral to a different Micro Paleontologist - states nothing is being taken and [...] (03/23/2023): Follows with Heme/Onc at [facility] Assessment & Plan (03/17/2022 5:41 AM CDT): [...] . Assessment & Plan (11/12/2021 2:56 PM MANUFACTURING BAKER): Social History Tobacco Use Smoking Status Current [...] often do you attend chur ch or rastafarian services? Never 07/06/2022 Do you belong to any clubs o r organizations such as hindu groups, unions, fraternal or athletic groups, or [...] staff should administer the PHQ-9) 0 03/16/2023 [facility] of Occupat ional [facility] - Occupational Stress Questionnaire Answer Date Recorded [...] on file Legal Sex Female 9:22 AM MANUFACTURING BAKER Gender Identity Female 10/09/2021 6:35 AM MANUFACTURING BAKER Sexual Orientation Bisexual 10/09/2021 6: 35 AM MANUFACTURING BAKER Obstetrics History Para Term AB IAB SAB [...] CDT Respiratory Rate 18 11/29/2022 5:02 AM MANUFACTURING BAKER Oxygen Saturation 98% 03/16/2023 3:06 PM CDT [...] patient's age to complete this topic Insurance [facility] Advance Directives For more information, please contact: [phone] * Full Code (Latest Code Status on File) Date Activated Date Inactivated Comments 07/05/2022 4:31 PM 07/07/2022 6:20 PM Care Teams Clubhouse Manager Relationship Specialty Start Date End Date Juan Pritchett MD PCP - General Family Medicine 08/16/21 Makenzie Choi, NEUROLOGY DIRECTOR [address] [place] [address] Nurse Practitioner Nurse Practitioner 08/16/21 Donnie Barcenas MD [address] [place] [address] Referring Physician Rheumatology 08/16/21 Maryellen Chong MD [address] [place] [address] Referring Physician General Surgery 08/16/21 Mateusz Reed MD [address] [place] [address] Consulting Physician Neurosurgery 08/16/21 Gonzalo Houston MD [address] [address] Medical Oncologist/Hematologis t Hematology and Oncology 12/29/22 Terence Wallis MD [address] [place], [place] [id number] Referring Physician Obstetrics and Gynecology 03/23/23
--- OUTSIDE RECORDS SUMMARY | 2025-03-23 14:25 | XMS_ITS | Clinical Summary ---
Author Organization [facility] Address [address] [place] [address] Phone Care Team Providers Care Hearse Driver Name Role Phone Donnie Barcenas MD Unavailable [phone] Maryellen Chong MD Unavailable Makenzie Choi APRN Unavailable [phone] Donnie Barcenas MD Unavailable [phone] Betsy Aldana DPM Unavailable [phone] Agustin Albright Primary Care Provider [phone] Allergies No known active allergies Medications ibuprofen [...] - 02/16/2025 11:59 PM CDT [facility] [address] [place] [address] Agustin Albright, ROD Discharge Disposition: Discharged to home or Selfcare 02/16/2025 Travel 02/16/2025 [facility] [address] [place] [address] Agustin Albright, ROD Right shoulder pain, unspecified [...] Right shoulder pain, unspecified chronicity ANTINUCLEAR ANTIBODY (WIBLERTO), TITER IF POS Routine 02/16/2025 3:51 PM [...] Meliton Galvez M.D. MF: KARLA Report ID: [id number] Reading Location: [id number] Procedure Note Meliton Galvez MD - 02/19/2025 [...] Meliton Galvez M.D. MF: KARLA Report ID: [id number] Reading Location: [id number] IMPRESSION: Normal right shoulder evaluation. Agustin Albright [facility] DIAGNOSTIC ORDERABLES Fin al Result * RHEUMATOID FACTOR (RFQT) QUANT (02/16/2025 3:51 PM CDT) RHEUMATOID FACTOR QT <13 <30 IU/mL 02/16/2025 4:58 PM CDT [facility] Blood Venipuncture / Unknown 02/16/2025 3:51 PM CDT 02/16/2025 4:34 PM CDT Narrative [facility] - 02/16/2025 4:58 PM CDT RHEUMATOID [...] OF ADULTS WITH THE DISEASE. Agustin Albright [facility] CHEMISTRY ORDERABLES Final Re sult [facility] [address] [place] [address] * (ABNORMAL) LIPID PANEL (02/16/2025 3:51 PM CDT) CHOLESTEROL 204(H) <200 mg/dL 02/16/2025 4:58 PM CDT [facility] TRIGLYCERIDES 88 <150 mg/dL 02/16/2025 4:58 PM CDT [facility] HDL CHOLESTEROL 44 >40 mg/dL 4:58 PM CDT [facility] LDL 142(H) <130 mg/dL 02/16/2025 4:58 PM CDT [facility] VLDL 18 10 - 50 mg/dL 02/16/2025 4:58 PM CDT [facility] CHOL/HDL RATIO 4.6(H) 0.0 - 4.4 02/16/2025 4:58 PM CDT [facility] NON-HDL CHOLESTEROL 160(H) <130 mg/dL 02/16/2025 4:58 PM CDT [facility] IS THE PATIENT REQUIRED TO BE FASTING? Yes 02/16/2025 4:58 PM CDT [facility] HAS THE PATIENT BEEN FASTING? Yes 02/16/2025 4:58 PM CDT [facility] Blood Venipuncture / Unknown 02/16/2025 3:51 PM CDT 02/16/2025 4:35 PM CDT Agustin Albright PAC CHEMISTRY ORDERABLES Final Re sult [facility] [address] [place] [address] * COMPLETE BLOOD COUNT (CBC) WITHOUT DIFF (02/16/2025 3:51 PM CDT) WBC 10.07 4.00 - 12.00 10(3)/mcL 02/16/2025 4:56 PM CDT [facility] RBC 4.61 3.80 - 5.30 10(6)/mcL 02/16/2025 4:56 PM CDT [facility] HEMOGLOBIN (HGB) 14.7 12.0 - 15.8 g/dL 02/16/2025 4:56 PM CDT [facility] HEMATOCRIT (HCT) 43.3 36.0 - 47.0 % 02/16/2025 4:56 PM CDT [facility] MCV 93.9 82.0 - 96.0 fL 02/16/2025 4:56 PM CDT [facility] MCH 31.9 26.0 - 34.0 pg 02/16/2025 4:56 PM CDT [facility] MCHC 33.9 31.0 - 36.0 g/dL 02/16/2025 4:56 PM CDT [facility] PLATELET COUNT 241 140 - 440 10(3)/mcL 02/16/2025 4:56 PM CDT [facility] RDW 12.1 11.8 - 15.5 % 02/16/2025 4:56 PM CDT [facility] MPV 10.1 9.7 - 12.4 fL 02/16/2025 4:56 PM CDT [facility] Blood Venipuncture / Unknown 02/16/2025 3:51 PM CDT 02/16/2025 4:33 PM CDT us Agustin Dhaliwal Natalee PAC HEMATOLOGY ORDERABLES Final R esult [facility] [address] [place] [address] * (ABNORMAL) CMP (COMPREHENSIVE METABOLIC PANEL) (02/16/2025 3:51 PM CDT) SODIUM 135(L) 136 - 145 mmol/L 02/16/2025 4:58 PM CDT [facility] POTASSIUM 3.9 3.5 - 5.1 mmol/L 02/16/2025 4:58 PM CDT [facility] CHLORIDE 104 98 - 107 mmol/L 02/16/2025 4:58 PM CDT [facility] CO2, VENOUS 23 22 - 30 mmol/L 02/16/2025 4:58 PM CDT [facility] ANION GAP 11.9 <18.0 mmol/L 02/16/2025 4:58 PM CDT [facility] GLUCOSE 85 70 - 99 mg/dL 02/16/2025 4:58 PM CDT [facility] BUN 10 5 - 18 mg/dL 02/16/2025 4:58 PM CDT [facility] CREATININE, BLOOD 0.81 0.60 - 1.00 mg/dL 02/16/2025 4:58 PM CDT [facility] BUN/CREATININE RATIO 12 12 - 20 ratio 02/16/2025 4:58 PM CDT [facility] TOTAL PROTEIN 7.0 6.0 - 8.0 g/dL 02/16/2025 4:58 PM CDT [facility] ALBUMIN 4.1 3.5 - 5.0 g/dL 02/16/2025 4:58 PM CDT [facility] A/G RATIO 1.4 1.0 - 2.2 02/16/2025 4:58 PM CDT [facility] CALCIUM 8.8 8.7 - 10.5 mg/dL 02/16/2025 4:58 PM CDT [facility] T BILI 0.4 0.2 - 1.2 mg/dL 02/16/2025 4:58 PM CDT [facility] SGOT (AST) 17 <43 U/L 02/16/2025 4:58 PM CDT [facility] SGPT (ALT) 15 <56 U/L 02/16/2025 4:58 PM CDT [facility] ALKALINE PHOSPHATASE 54 40 - 150 U/L 02/16/2025 4:58 PM CDT [facility] IS THE PATIENT REQUIRED TO BE FASTING? No 02/16/2025 4:58 PM CDT [facility] GFR, ESTIMATED >60 >=60 02/16/2025 4:58 PM CDT [facility] Comment: Creatinine Clearance is the preferred criteria for selecting drug dose adjustments in renally impaired patients. The GFR is provided as additional pertinent clinical information. GFR is reported in mL/min/1.73 sq m. Calculation based on the Chronic Kidney Disease Epidemiology Collaboration (CKD- EPI) equation refit without adjustment for race. GFR, EST. >60 >=60 025 4:58 PM CDT [facility] GFR, EST. NONAFRICAN >60 >=60 02/16/2025 4:58 PM CDT [facility] Blood Venipuncture / Unknown 02/16/2025 3:51 PM CDT 02/16/2025 4:35 PM CDT us Agustin Albright PAC CHEMISTRY ORDERABLES Final Re sult [facility] [address] [place] [address] * ANTINUCLEAR ANTIBODY (WILBERTO), TITER IF POS (02/16/2025 3:51 PM CDT) WILBERTO SCREEN Negative Negative titer 02/17/2025 12:24 PM CDT [facility] Comment: Antinuclear autoantibodies not detected by IFA at a 1:80 screening dilution of HEp-2 cells. WILBERTO TITER Not Applicable Negative, See comment, Not Applicable titer 02/17/2025 12:24 PM CDT [facility] Comment: Antinuclear autoantibodies not detected by IFA at a 1:80 screening dilution of HEp-2 cells. WILBERTO PATTERN NOT APPLICABLE 02/17/2025 12:24 PM CDT [facility] Blood Venipuncture / Unknown 02/16/2025 3:51 PM CDT 02/16/2025 4:34 PM CDT us Agustin VELASCO IMMUNOLOGY ORDERABLES Final R esult [facility] [address] [place] [address], [place] from Last 3 Months Insurance [facility] Care Teams Hearse Driver Relationship Specialty Start Date End Date Agustin Albright PAC [address] [place] [address] PCP - General Physician Planner 02/16/25 Donnie Barcenas MD [address] [place] [address] Internal Medicine 04/24/21 Maryellen Chong MD [address] [address] Consulting Physician Endocrinology 04/24/21 Makenzie Choi APRN [address] [place] [address] Family Medicine 06/07/21 Donnie Barcenas MD [address] [place] [address] Internal Medicine 06/07/21 Betsy Aldana DPDeysi [address] [place] [address] Consulting Physician Podiatry 03/24/23
== END 2025-03-23 13:21 | disposition home or self-care (01) ==
PROVIDERS: PCP Physician Assistant; Visit Provider Surgery
DX: R92.8 Other abnormal and inconclusive findings on diagnostic imaging of breast (principal); R92.343 Mammographic extreme density, bilateral breasts; Z80.3 Family history of malignant neoplasm of breast
CPT/HCPCS: 76642